=== PATIENT | female | born 1960 | race Caucasian/White ===

== ENCOUNTER → 2016-09-28 | Outpatient (CLI) | payer BC ==
[~2016-09-28] MED LIST: CETI10TA84 PO; HYDC25 PO; HYDR12.56 PO; LSN5 PO; PANT40TA PO; SYMIN160 INH
== END | disposition home or self-care (01) ==
LOC: C.PAPS 10:14
PROVIDERS: ATTEND Obstetrics & Gynecology
DX: Z01.419 Encounter for gynecological examination (general) (routine) without abnormal findings (principal)

== ENCOUNTER → 2016-10-19 | Outpatient (CLI) | payer BC ==
--- NOTE | 2016-10-19 16:37 | MAMMOGRAPHY REPORT ---
BILATERAL DIGITAL SCREENING MAMMOGRAM TOMOSYNTHESIS WITH CAD: 10/19/2016 CLINICAL HISTORY: Routine screening examination. TECHNIQUE: Breast tomosynthesis in addition to standard 2D mammography was performed. Current study was also evaluated with a Computer Aided Detection (CAD) system. COMPARISON: Comparison is made to exams dated: 10/17/2015 mammogram, 10/15/2014 mammogram, and 2012 mammogram - [facility]. BREAST COMPOSITION: There are scattered areas of fibroglandular density in both breasts. FINDINGS: There are diffuse bilateral breast microcalcifications and dermal calcifications. No susp icious mass, architectural distortion or cluster of new, suspicious microcalcifications is seen. IMPRESSION: ACR BI-RADS CATEGORY 1: NEGATIVE There is no mammographic evidence of malignancy. A 1 year screening mammogram is recommended. The p atient will receive written notification of the results. Approximately 10% of breast cancers are not detected with mammography. A negative mammographic repor t should not delay biopsy if a clinically suggestive mass is present. Christine Chapa M.D. ay/:10/19/2016 16:07:35 Disability Insurance Claim Examiner: Cassandra CLINE)(Collette), [facility] letter sent: Normal 1/2 BI-RADS Code: ACR BI-RADS Category 1: Negative
== END | disposition home or self-care (01) ==
LOC: C.MAMM 15:25
PROVIDERS: ATTEND Family Medicine
DX: Z12.31 Encounter for screening mammogram for malignant neoplasm of breast (principal)

== ENCOUNTER 2017-04-06 15:40 | Emergency (ER) | payer BC ==
[~2017-04-06] VITALS: Ht 157.5 cm; Wt 95.3 kg
[~2017-04-06 15:40] MED LIST changes: -HYDR12.56 PO; -LSN5 PO
[2017-04-06 15:44] VITALS: TEMP 36.6; Ht 157.5 cm; Wt 95.3 kg
[2017-04-06] MEDS ORDERED: SODIUM CHLORIDE 0.9% 1000ML 1,000 ML IV STA (16:33)
[2017-04-06 16:50] LABS: BASO % 0.3 %; BASO ABS # 0.04 K/uL (0-0.2); COMPLETE YES; EOS % 2.3 %; HEMATOCRIT 42.2 % (37-47); IG% 0.7 %; LYMPH % 21.7 %; LYMPH ABS # 2.59 K/uL (1.2-3.4); MEAN CELL VOLUME 86.3 fL (80-100); MEAN CORPUSCULAR HEMOGLOBIN 28.6 pg (25-34); MEAN CORPUSCULAR HGB CONC 33.2 g/dl (32-36); MONO % 7.4 %; NEUT % 67.6 %; PLATELET COUNT 315 K/uL (130-400); RED BLOOD COUNT 4.89 M/uL (4.2-5.4); WHITE BLOOD COUNT 11.94 K/uL (4.8-10.8)
--- NOTE | 2017-04-06 16:50 | EMERGENCY ROOM VISIT NOTE ---
History First contact with patient: 15:49 Chief Complaint: RIB PAIN Stated Complaint: PAIN UNDER RIB CAGE History of Present Illness The patient is a 57 year old female who presents to the Emergency Room with complaints of left-sided upper abdominal pain 5 days. The patient reports history of similar pain, which she describes as "attacks", related to her IBS D. The patient states they often occur after eating, however they have been more frequent today, despite drinking only clear liquids. The patient states she has a prescription for Bentyl, which she takes for abdominal cramping, but she states this has not been helping at this time. The patient states the pain begins in the epigastric area and wraps around the left side of her abdomen towards her back. The patient states she does have a history of pancreatitis, and states the pain she is experiencing now feels similar to that. The patient states over the past 5 days, her discomfort has been getting worse, and is taking her breath away due to the sharp pains she is experiencing. He, the patient states she has had 3 liquid bowel movements. The patient did take ibuprofen last week for a toothache, and is suspicious that this could be irritating her stomach. She did discontinue this medication 1 day prior to the pain beginning. She states the pain as coming in waves. He also describes bloating. The patient denies recent illness. The patient does have history of cholecystectomy. She does report nausea and chills. The patient denies constipation, vomiting, fever, bodyaches, chest pain, dyspnea, headache, dizziness, lightheadedness. The patient denies history of heart disease, however does have a history of hypertension. The patient does report family history of heart disease in both sides, however is on certain of ages of onset for her parents, as they when she was very young. Review of Systems A complete 10 point review of systems was reviewed with the patient with pertinent positives and negatives as per history of present illness. All else were negative. Past Medical/Surgical History Medical Problems: (1) Asthma (2) Cervical stenosis (3) Hypertension Surgical Problems: (1) H/O: hysterectomy (2) Hx of cholecystectomy Family History Cancer Diabetes mellitus Gallbladder disease Heart disease Hypertension Lung disease Social History Smoking Status: Never Smoker Alcohol Use: none Drug Use: none Housing Status: lives with family Occupation Status: employed Current/Historical Medications Scheduled Budesonide/Formoterol Fumarate (Symbicort 160/4.5 Inhaler ), 2 PUFFS INH BID Cetirizine (Zyrtec), 10 MG PO DAILY Hydrochlorothiazide (Hctz), 1 TAB PO DAILY Lisinopril (Lisinopril), 1 TAB PO DAILY Physical Exam Vital Signs Date Time Temp Pulse Resp B/P (MAP) Pulse Ox O2 Delivery O2 Flow Rate FiO2 04/06/17 19:50 61 18 119/85 98 04/06/17 18:29 62 18 122/52 98 Room Air 04/06/17 17:01 58 04/06/17 15:44 36.6 67 15 133/88 95 Room Air Physical Exam VITALS: Vitals are noted on the nurse's note and reviewed by myself. Vital signs stable. GENERAL: 57-year-old female, in no acute distress, nondiaphoretic, well- developed well-nourished. SKIN: The skin was without rashes, erythema, edema, or bruising. There is no tenting of the skin. Capillary reflex less than 2 seconds. HEAD: Normocephalic atraumatic. EARS: External auditory canals clear, tympanic membranes pearly roche without erythema or effusion bilaterally. EYES: Pupils equal round and reactive to light and accommodation. Conjunctivae without injection, sclerae without icterus. Extraocular movements intact. NOSE: Patent, turbinates without inflammation or discharge. No sinus tenderness. MOUTH: Mucous membranes moist. Tonsils are not enlarged. Pharynx without erythema or exudate. Uvula midline. Airway patent. Tongue does not deviate. NECK: Supple without nuchal rigidity. No lymphadenopathy. No thyromegaly. Cervical spine is nontender. No JVD. HEART: Regular rate and rhythm without murmurs gallops or rubs. LUNGS: Clear to auscultation bilaterally without wheezes, rales or rhonchi. No dullness to percussion. No retractions or accessory muscle use. ABDOMEN: Positive bowel sounds x 4. Normal tympanic percussion. Tenderness noted in left upper quadrant, left lower quadrant, right lower quadrant. Soft, without masses or organomegaly. Rod sign negative. No guarding or rebound tenderness. MUSCULOSKELETAL: No muscle atrophy, erythema, or edema noted. Full range of motion without joint tenderness in all extremities. No tenderness to palpation. Normal gait. Strength 5/5 throughout. NEURO: Patient was alert and oriented to person place and time. Normal sensation to light and sharp touch. Deep tendon reflexes 2+ throughout. No focal neurological deficits. Medical Decision & Procedures ER Provider Diagnostic Interpretation: CXR: FINDINGS: The bones soft tissues and hemidiaphragms are normal. The cardiomediastinal silhouette is normal. The lungs are clear. The pulmonary vasculature is normal. IMPRESSION: Negative chest. CT Abdomen with IV and PO Contrast: FINDINGS: Hepatomegaly with findings of fatty infiltration. Pancreas spleen and kidneys are unremarkable. Wall thickening of several loops of small bowel in the left upper quadrant region. This suggestive of an inflammatory bowel process such as Crohn's. Remainder the small bowel is considered unremarkable. Terminal elements appears to be unremarkable. Visualized components of the appendix are within normal limits. Mild fibroid-type uterus is noted. Several small ovarian follicular cysts are present. There are scattered colonic diverticuli with no evidence for diverticulitis. IMPRESSION: 1. Wall thickening of several loops of small bowel left upper quadrant suggesting inflammatory bowel process and/or Crohn's. 2. No evidence for abscess collection or obstructive change. 3. Scattered colonic diverticuli with no evidence of diverticulitis. 4. Moderate hepatomegaly with fatty infiltration unchanged from the prior study. EKG: EKG shows NSR with normal intervals, normal QRS complexes, no ST elevation or depression, and no arrhythmias. LABS: CBC with slightly elevated white blood cell count with left shift. Otherwise, without abnormality including anemia or thrombocytopenia. AST/ALT, Alk Phos, CRP slightly elevated. Cardiac labs negative. U/A with trace leuk esterase. I do feel that these findings could be related to patient's symptoms and recommended she follow-up closely with building services engineer. She could be getting a slight viral gastroenteritis infection on top of her IBS-D. Laboratory Results 04/06/17 16:20 Red Blood Count 4.89, Mean Corpuscular Volume 86.3, Mean Corpuscular Hemoglobin 28.6, Mean Corpuscular Hemoglobin Concent 33.2, Mean Platelet Volume 9.0, Neutrophils (%) (Auto) 67.6, Lymphocytes (%) (Auto) 21.7, Monocytes (%) (Auto) 7.4, Eosinophils (%) (Auto) 2.3, Basophils (%) (Auto) 0.3, Neutrophils # (Auto) 8.08, Lymphocytes # (Auto) 2.59, Monocytes # (Auto) 0.88, Eosinophils # (Auto) 0.27, Basophils # (Auto) 0.04 04/06/17 16:20 Test 04/06/17 16:06 04/06/17 16:20 04/06/17 16:33 Creatine Kinase MB Ratio (0-3.0) White Blood Count 11.94 K/uL (4.8-10.8) Red Blood Count 4.89 M/uL (4.2-5.4) Hemoglobin 14.0 g/dL (12.0-16.0) Hematocrit 42.2 % (37-47) Mean Corpuscular Volume 86.3 fL (80-100) Mean Corpuscular Hemoglobin 28.6 pg (25-34) Mean Corpuscular Hemoglobin Concent 33.2 g/dl (32-36) Platelet Count 315 K/uL (130-400) Mean Platelet Volume 9.0 fL (7.4-10.4) Neutrophils (%) (Auto) 67.6 % Lymphocytes (%) (Auto) 21.7 % Monocytes (%) (Auto) 7.4 % Eosinophils (%) (Auto) 2.3 % Basophils (%) (Auto) 0.3 % Neutrophils # (Auto) 8.08 K/uL (1.4-6.5) Lymphocytes # (Auto) 2.59 K/uL (1.2-3.4) Monocytes # (Auto) 0.88 K/uL (0.11-0.59) Eosinophils # (Auto) 0.27 K/uL (0-0.5) Basophils # (Auto) 0.04 K/uL (0-0.2) RDW Standard Deviation 40.9 fL (36.4-46.3) RDW Coefficient of Variation 12.9 % (11.5-14.5) Immature Granulocyte % (Auto) 0.7 % Immature Granulocyte # (Auto) 0.08 K/uL (0.00-0.02) D-Dimer 450 ug/L FEU (0-500) Anion Gap 6.0 mmol/L (3-11) Est Creatinine Clear Calc Drug Dose 82.4 ml/min Estimated GFR () 92.0 Estimated GFR (Non- 79.4 BUN/Creatinine Ratio 13.1 (10-20) Calcium Level 9.6 mg/dl (8.5-10.1) Total Bilirubin 0.7 mg/dl (0.2-1) Aspartate Amino Transf (AST/SGOT) 53 U/L (15-37) Alanine Aminotransferase (ALT/SGPT) 79 U/L (12-78) Alkaline Phosphatase 142 U/L (45-117) Lactate Dehydrogenase 191 U/L (84-246) Creatine Kinase MB 3.2 ng/ml (0.5-3.6) Troponin I < 0.015 ng/ml (0-0.045) C-Reactive Protein 1.10 mg/dl (0-0.29) Total Protein 7.8 gm/dl (6.4-8.2) Albumin 4.0 gm/dl (3.4-5.0) Globulin 3.8 gm/dl (2.5-4.0) Albumin/Globulin Ratio 1.1 (0.9-2) Amylase Level 31 U/L (25-115) Lipase 136 U/L (73-393) Urine Color YELLOW Urine Appearance CLEAR (CLEAR) Urine pH 7.5 (4.5-7.5) Urine Specific [place] 1.013 (1.000-1.030) Urine Protein NEG (NEG) Urine Glucose (UA) NEG (NEG) Urine Ketones NEG (NEG) Urine Occult Blood NEG (NEG) Urine Nitrite NEG (NEG) Urine Bilirubin NEG (NEG) Urine Urobilinogen NEG (NEG) Urine Leukocyte Esterase TRACE (NEG) Urine WBC (Auto) 0 /hpf (0-5) Urine RBC (Auto) 0-4 /hpf (0-4) Urine Hyaline Casts (Auto) 0 /lpf (0-5) Urine Epithelial Cells (Auto) 0-5 /lpf (0-5) Urine Bacteria (Auto) NEG (NEG) Medications Administered Medications (Trade) Dose Ordered Sig/Marnie Route Start Time Stop Time Status Last Admin Dose Admin Sodium Chloride 1,000 ml @ 999 mls/hr Q1H1M STAT IV 04/06/17 16:33 04/06/17 17:33 DC 04/06/17 16:37 999 MLS/HR ED Course The patient was seen and evaluated as above. Labs, EKG, chest x-ray, CT abdomen and pelvis with IV and oral contrast were ordered. The patient was given a bolus of NSS 1 L. I did reevaluate the patient and she notes mild improvement of her symptoms. The patient does decline pain medication at this time. I discussed the case Dr. Wlaker. He does not feel that the patient warrants further evaluation at this time, but did recommend close follow-up with patient' s PCP and building services engineer. I discussed all findings with the patient. Encouraged her to follow up tomorrow with her building services engineer if possible. I reviewed discharge instructions with the patient. She was discharged home in good condition. Medical Decision Throughout the course of the patient's care, I did consider the following etiologies: Acute pancreatitis, Acute gastroenteritis, Acute colitis, Crohn's disease, IBS-D, diverticulitis, Acute coronary syndrome, hepatitis, pulmonary embolism, pneumonia, nephrolithiasis, pyelonephritis, malignancy, and others. I feel that this is an acute exacerbation of the patient's chronic IBS-D, based on negative work-up performed in the ED. The patient was encouraged to follow- up with her PCP and building services engineer regarding worsening symptoms at this time. Medication Reconcilliation Current Medication List: was personally reviewed by me Impression Primary Impression: Abdominal pain Departure Information Dispostion Home / Self-Care Condition GOOD Referrals Faina Alvarez PA-C (PCP) Sheldon Carbajal MD Patient Instructions ED Abdominal Pain Unkn Cause, My [facility] Additional Instructions You were seen in the emergency department for your abdominal pain. Laboratory results of imaging studies have ruled out any emergent causes for abdominal pain which would warrant admission or surgery. You may take Bentyl as it is prescribed to you by your building services engineer. Please follow-up with your building services engineer for worsening symptoms and further evaluation. Avoid NSAIDs such as ibuprofen, naproxen, Advil, Aleve, and Motrin as much as possible, as I suspect this may have caused a worsening flare-up of your symptoms. Please stick with a clear liquid or diet which is easy to digest for the next 24 -48 hours. Drink plenty of water and stay well hydrated. As with any trip to the Emergency Department, you should follow-up with your Primary Care Provider from today's visit. Return to the emergency department if your symptoms persist despite treatment plan outlined above or if the following symptoms occur: increased fevers, chills , worsening nausea/vomiting, blood in your stool or urine. Problem Qualifiers Primary Impression: Abdominal pain Abdominal location: left upper quadrant Qualified Codes: R10.12 - Left upper quadrant pain
[2017-04-06 16:53] LABS: URINE APPEARANCE CLEAR (CLEAR); URINE BILIRUBIN NEG (NEG); URINE COLOR YELLOW; URINE EPITHELIAL CELL AUTO 0-5 /lpf (0-5); URINE NITRITE NEG (NEG); URINE PH 7.5 (4.5-7.5); URINE SPECIFIC GRAVITY 1.013 (1.000-1.030); UROBILINOGEN NEG (NEG); ZZUR CULT IF INDIC CLEAN CATCH NO
[2017-04-06 16:55] LABS: MANUAL MICROSCOPIC REQUIRED? NO; REVIEW REQ? NO
[2017-04-06 17:09] LABS: ALT/SGPT 79 U/L (12-78); AMYLASE 31 U/L (25-115); AST/SGOT 53 U/L (15-37); BLOOD UREA NITROGEN 11 mg/dl (7-18); BUN/CREATININE RATIO 13.1 (10-20); CALCIUM 9.6 mg/dl (8.5-10.1); CARBON DIOXIDE 27 mmol/L (21-32); CHLORIDE 104 mmol/L (98-107); CREATININE 0.83 mg/dl (0.60-1.20); GLUCOSE 85 mg/dl (70-99); POTASSIUM 3.7 mmol/L (3.5-5.1); SODIUM 137 mmol/L (136-145)
[2017-04-06 17:14] LABS: ALB/GLOB RATIO 1.1 (0.9-2); ALKALINE PHOSPHATASE 142 U/L (45-117)
[2017-04-06] MEDS ORDERED: HYDR12.56 PO (17:27)
[2017-04-06] MEDS ORDERED: LSN5 PO (17:27)
--- NOTE | 2017-04-06 19:10 | DIAGNOSTIC IMAGING REPORT ---
ABD/PELVIS IV AND ORAL CONT CT DOSE: 971.02 mGy.cm HISTORY: Pain abdominal pain, diarrhea TECHNIQUE: Multiaxial CT images of the abdomen and pelvis were performed following the use of intravenous and oral contrast. COMPARISON STUDY: 11/06/2015 FINDINGS: Hepatomegaly with findings of fatty infiltration. Pancreas spleen and kidneys are unremarkable. Wall thickening of several loops of small bowel in the left upper quadrant region. This suggestive of an inflammatory bowel process such as Crohn's. Remainder the small bowel is considered unremarkable. Terminal elements appears to be unremarkable. Visualized components of the appendix are within normal limits. Mild fibroid-type uterus is noted. Several small ovarian follicular cysts are present. There are scattered colonic diverticuli with no evidence for diverticulitis. IMPRESSION: 1. Wall thickening of several loops of small bowel left upper quadrant suggesting inflammatory bowel process and/or Crohn's. 2. No evidence for abscess collection or obstructive change. 3. Scattered colonic diverticuli with no evidence of diverticulitis. 4. Moderate hepatomegaly with fatty infiltration unchanged from the prior study. The above report was generated using voice recognition software. It may contain grammatical, syntax or spelling errors. Electronically signed by: Roque Stinson M.D. 04/06/2017 7:09 PM Dictated Date/Time: 04/06/2017 7:05 PM
[2017-04-06] MEDS ORDERED: OPTIRAY 320 IV PRN (19:15)
--- NOTE | 2017-04-06 19:20 | DIAGNOSTIC IMAGING REPORT ---
CHEST 2 VIEWS ROUTINE CLINICAL HISTORY: RUQ pain, pain with breathing COMPARISON STUDY: 05/01/2014 FINDINGS: The bones soft tissues and hemidiaphragms are normal. The cardiomediastinal silhouette is normal. The lungs are clear. The pulmonary vasculature is normal. IMPRESSION: Negative chest. The above report was generated using voice recognition software. It may contain grammatical, syntax or spelling errors. Electronically signed by: Roque Stinson M.D. 04/06/2017 7:19 PM Dictated Date/Time: 04/06/2017 7:19 PM
[2017-04-06 19:50] VITALS: BP 119/85; PULSE 61; O2SAT 98
== END 2017-04-06 19:51 | disposition home or self-care (01) ==
LOC: C.EDB 15:41 → C.EDA 19:51
DX: R10.12 Left upper quadrant pain (principal); Z90.49 Acquired absence of other specified parts of digestive tract; K58.0 Irritable bowel syndrome with diarrhea; J45.909 Unspecified asthma, uncomplicated; I10 Essential (primary) hypertension; Z90.710 Acquired absence of both cervix and uterus; Z80.9 Family history of malignant neoplasm, unspecified; Z83.3 Family history of diabetes mellitus; Z82.49 Family history of ischemic heart disease and other diseases of the circulatory system; Z79.899 Other long term (current) drug therapy

== ENCOUNTER → 2017-05-26 | Outpatient (CLI) | payer BC ==
[~2017-05-26] MED LIST changes: -HYDC25 PO; +HYDR12.56 PO; +LSN5 PO; -PANT40TA PO
--- NOTE | 2017-05-26 15:58 | DIAGNOSTIC IMAGING REPORT ---
CT SCAN OF THE FACIAL BONES WITHOUT IV CONTRAST CLINICAL HISTORY: Atypical facial pain. COMPARISON STUDY: No priors. TECHNIQUE: High-resolution CT scan of the facial bones is performed. Images are reviewed in the axial, sagittal, and coronal planes. IV contrast was not administered for this examination as per the referring clinician. A dose lowering technique was utilized adhering to the principles of ALARA. CT DOSE: 514.37 mGycm FINDINGS: The skeletal structures are osteopenic. There is no evidence of facial bone fracture. The bony orbits are intact and the orbital contents are within normal limits. The zygomatic arches, nasal bones, and pterygoid plates are preserved. The maxilla and mandible are intact. There are no layering blood products within the paranasal sinuses. Trace mucosal thickening is seen in the right frontal sinus. Remaining paranasal sinuses and mastoid air cells are clear. The visualized calvarium and upper cervical spine are maintained. Partially imaged brain parenchyma is within normal limits. The salivary glands are normal as visualized. There is a large dental mansi identified involving the most posterior right mandibular molar. No periapical lucency is seen. IMPRESSION: 1. No facial bone abnormality is identified. 2. A large dental mansi is seen in the most posterior right mandibular molar. Follow-up with dentistry is recommended. Electronically signed by: Bryant Silva M.D. 05/26/2017 3:57 PM Dictated Date/Time: 05/26/2017 3:52 PM
== END | disposition home or self-care (01) ==
LOC: C.CTS 15:21
PROVIDERS: ATTEND Physician Assistant
DX: G50.1 Atypical facial pain (principal)

== ENCOUNTER → 2017-05-27 | Outpatient (CLI) | payer BC ==
[2017-05-27 12:13] LABS: BASO ABS # 0.01 K/uL (0-0.2); COMPLETE YES; HEMATOCRIT 40.8 % (37-47); IG% 1.7 %; LYMPH % 7.5 %; LYMPH ABS # 1.64 K/uL (1.2-3.4); MEAN CELL VOLUME 89.5 fL (80-100); MEAN CORPUSCULAR HEMOGLOBIN 29.2 pg (25-34); MEAN CORPUSCULAR HGB CONC 32.6 g/dl (32-36); MONO % 2.2 %; NEUT % 88.6 %; PLATELET COUNT 392 K/uL (130-400); RED BLOOD COUNT 4.56 M/uL (4.2-5.4); WHITE BLOOD COUNT 21.79 K/uL (4.8-10.8)
== END | disposition home or self-care (01) ==
LOC: C.LAB 11:09
PROVIDERS: ATTEND Physician Assistant
DX: G50.1 Atypical facial pain (principal)

== ENCOUNTER → 2017-10-21 | Outpatient (CLI) | payer OTHER ==
--- NOTE | 2017-10-24 13:48 | MAMMOGRAPHY REPORT ---
BILATERAL DIGITAL SCREENING MAMMOGRAM TOMOSYNTHESIS WITH CAD: 10/21/2017 CLINICAL HISTORY: Routine screening. Patient has no complaints. TECHNIQUE: Breast tomosynthesis in addition to standard 2D mammography was performed. Current study was also evaluated with a Computer Aided Detection (CAD) system. COMPARISON: Comparison is made to exams dated: 10/19/2016 mammogram, 10/17/2015 mammogram, 10/15/2014 m ammogram, and 07/06/2013 mammogram - [facility]. BREAST COMPOSITION: There are scattered areas of fibroglandular density in both breasts. FINDINGS: No suspicious masses, calcifications, or areas of architectural distortion are noted in ei ther breast. There has been no significant interval change compared to prior exams. Scattered bilater al benign-appearing calcifications are not significantly changed. IMPRESSION: ACR BI-RADS CATEGORY 2: BENIGN There is no mammographic evidence of malignancy. A 1 year screening mammogram is recommended. The pa tient will receive written notification of the results. Approximately 10% of breast cancers are not detected with mammography. A negative mammographic report should not delay biopsy if a clinically suggestive mass is present. Indy Carlos M.D. ah/:10/21/2017 16:19:29 Assembling Inspector: Cassandra PERAZA(Aida)(M), [facility] letter sent: Normal 1/2 BI-RADS Code: ACR BI-RADS Category 2: Benign
== END | disposition home or self-care (01) ==
LOC: C.MAMM 15:32
PROVIDERS: ATTEND Family Medicine
DX: Z12.31 Encounter for screening mammogram for malignant neoplasm of breast (principal)

== ENCOUNTER 2019-03-14 10:53 | Observation (INO) ==
--- OUTSIDE RECORDS SUMMARY | 2019-03-14 10:56 | External Medical Summary | Continuity of Care Document ---
:1960 Author Name Tawanda Weller, Provider Address Unavailable Unavailable , Care Team Providers Name Role Phone [facility], Provider Unavailable [email or web address] Unavailable Unavailable Unavailable Unavailable Unavailable Problems Hypertension (401.9) (I10) Hyperlipidemia (272.4) (E78.5) Encounter for routine pelvic examination (V72.31) (Z01.419) Abnormal uterine bleeding (AUB) (626.9) (N93.9) Menstrual changes (626.9) (N92.6) Allergies and Adverse Reactions Penicillins (Allergy) Medications Baby Aspirin CHEW Refills: 0 Neema C TABS Refills: 0 Zantac CAPS Refills: 0 Multiple Vitamin TABS Refills: 0 Vitamin C TABS Refills: 0 Symbicort AERO Refills: 0 ZyrTEC Allergy TABS Refills: 0 hydroCHLOROthiazide 12.5 MG Oral Tablet Refills: 0 Procedures History of Cholecystotomy Status: Comple codi History of Appendectomy Status: Complete d History of Tonsillectomy Status: Complet ed History of Tubal Ligation Status: Comple codi History of Section Status: Comp leted History of Exploratory Laparotomy Status : Completed Immunizations Immunizations not documented Social History - Smoking Status Never smoker Plan of Treatment Planned Observations Planned Goals not documented Results No Known Results Results not documented
[2019-03-14] MEDS ORDERED: MoRPHine SULFATE 10 MG/ML CARP/VIAL IV STA (11:42)
[2019-03-14] MEDS ORDERED: SODIUM CHLORIDE 0.9% 1000ML 1,000 ML IV ONE (11:42)
[2019-03-14] MEDS ORDERED: ONDANSETRON INJ 2 MG/ML 2 ML VIAL IV STA ×2 (11:42→16:11)
--- NOTE | 2019-03-14 11:51 | Emergency Department Note ---
History of Present Illness General Chief Complaint: Abdominal Pain Stated Complaint: VERY BAD BELLY PAIN Source: patient Mode of arrival: ambulatory Limitations: no limitations History of Present Illness Provider Complaint: abdominal pain Onset (ago): 6 hour(s) Pain Consistency: constant Location: diffuse Radiation: other (left shoulder) Migration to: no migration Severity: severe Maximum Pain Intensity: 10 Current Pain Intensity: 10 Quality: + cramping Relieved By: + nothing Exacerbated By: + nothing Context: no foreign travel, no possible food poisoning, no sick contacts, no recent antibiotic use, no recent surgery/procedure, no recent injury and no history of similar episodes Associated Symptoms: + nausea; no vomiting, no diarrhea, no fever, no chills, no constipation, no dysuria, no hematochezia, no melena, no hematuria, no anorexia, no headache, no neck pain, no back pain, no chest pain, no weakness, no breathing difficulty and no numbness Treatments prior to arrival: tylenol This 59-year-old female patient presents emergency department today, ambulatory, accompanied by female. Patient is complaining of severe generalized abdominal pain which she describes as cramping. She states it may be worse in the upper abdomen, but is over the incision site in her lower abdomen as well. She has a history of diverticulitis, and states this pain is worse than she has ever experienced with that. The patient states the pain began at approximate 530 this morning while on her way to work. The pain does radiate into her left shoulder. She took a dose of Bentyl which did not help and was sent home from work at 815. She states she took some Tylenol at 9:00, which did not relieve her pain. There is no aggravating or alleviating factors. She did not eat breakfast this morning, but drinks some tea. Last night for dinner she had a salad and some fish which she prepared. She reports associated nausea, but no vomiting. She denies any associated symptoms including fever, diarrhea, chills, constipation, vomiting, urinary symptoms, hematochezia, cough, chest pain, difficulty breathing, or other associated symptoms. Last bowel movement was this morning and was normal. Home Medications Home Medications Medication Instructions Recorded Confirmed Type budesonide-formoterol [Symbicort] 2 puff INHALATION BID 03/14/19 03/14/19 History cetirizine [Zyrtec] 10 mg PO QAM 03/14/19 03/14/19 History lisinopril 5 mg PO QAM 03/14/19 03/14/19 History ranitidine HCl 300 mg PO HS 03/14/19 03/14/19 History Allergies Allergy/AdvReac Type Severity Reaction Status Date / Time pantoprazole Allergy Severe RASH ON ARM Unverified 03/14/19 13:04 Penicillins Allergy Unknown throat Verified 03/14/19 13:04 swelling Past Med/Surg History Medical History Allergic rhinitis Asthma Hypertension Social History Preferred Language: Yi Feels Safe at Home: Yes Smoking Status: Never smoker Review of Systems A total of 10 systems reviewed and were otherwise negative Physical Exam Vital Signs: Vital Signs - 24 hr 03/14/19 11:12 03/14/19 12:00 03/14/19 12:03 Temperature 37.0 C Temperature Source Oral Sepsis Recent Feve r Within 48 Hours No Sepsis New/Unexpla ined Change in Men neaem Status No Sepsis Action Take n by Nursing No Action Required Pulse Rate 73 74 67 Pulse Rate [Right Finger] Pulse Rate from Sp O2 Sensor 75 Pulse Rhythm Regular Pulse Strength Normal Respiratory Rate 20 17 18 Respiratory Effort / Characteristics Non-Labored Sponta neous Respiratory Depth Normal Respiratory Patter n Regular Blood Pressure 171/91 H 145/88 H Blood Pressure [Ri ght Arm] Blood Pressure Maureen n 117 107 Blood Pressure Maureen n [Right Arm] Blood Pressure Pos ition Sitting Pulse Oximetry 97 93 98 Oxygen Delivery Me thod Room Air Room Air 03/14/19 12:28 03/14/19 12:30 03/14/19 13:00 Temperature Temperature Source Sepsis Recent Feve r Within 48 Hours Sepsis New/Unexpla ined Change in Men naeem Status Sepsis Action Take n by Nursing Pulse Rate 89 84 81 Pulse Rate [Right Finger] Pulse Rate from Sp O2 Sensor Pulse Rhythm Pulse Strength Respiratory Rate 19 18 20 Respiratory Effort / Characteristics Respiratory Depth Respiratory Patter n Blood Pressure Blood Pressure [Ri ght Arm] Blood Pressure Maureen n Blood Pressure Maureen n [Right Arm] Blood Pressure Pos ition Pulse Oximetry Oxygen Delivery Me thod 03/14/19 13:30 03/14/19 14:00 03/14/19 14:02 Temperature Temperature Source Sepsis Recent Feve r Within 48 Hours Sepsis New/Unexpla ined Change in Men naeem Status Sepsis Action Take n by Nursing Pulse Rate 74 64 Pulse Rate [Right Finger] Pulse Rate from Sp O2 Sensor 68 65 Pulse Rhythm Pulse Strength Respiratory Rate 21 18 Respiratory Effort / Characteristics Respiratory Depth Respiratory Patter n Blood Pressure 129/90 Blood Pressure [Ri ght Arm] Blood Pressure Maureen n 103 Blood Pressure Maureen n [Right Arm] Blood Pressure Pos ition Pulse Oximetry 93 96 Oxygen Delivery Me thod 03/14/19 14:30 03/14/19 15:37 03/14/19 15:38 Temperature Temperature Source Sepsis Recent Feve r Within 48 Hours Sepsis New/Unexpla ined Change in Men naeem Status Sepsis Action Take n by Nursing Pulse Rate 70 62 Pulse Rate [Right Finger] 68 Pulse Rate from Sp O2 Sensor 70 63 Pulse Rhythm Pulse Strength Respiratory Rate 17 21 18 Respiratory Effort / Characteristics Respiratory Depth Respiratory Patter n Blood Pressure 133/90 129/91 Blood Pressure [Ri ght Arm] 129/91 Blood Pressure Maureen n 104 103 Blood Pressure Maureen n [Right Arm] 103 Blood Pressure Pos ition Pulse Oximetry 97 93 95 Oxygen Delivery Me thod 03/14/19 16:00 Temperature Temperature Source Sepsis Recent Feve r Within 48 Hours Sepsis New/Unexpla ined Change in Men naeem Status Sepsis Action Take n by Nursing Pulse Rate 63 Pulse Rate [Right Finger] Pulse Rate from Sp O2 Sensor 64 Pulse Rhythm Pulse Strength Respiratory Rate 15 Respiratory Effort / Characteristics Respiratory Depth Respiratory Patter n Blood Pressure 135/88 Blood Pressure [Ri ght Arm] Blood Pressure Maureen n 103 Blood Pressure Maureen n [Right Arm] Blood Pressure Pos ition Pulse Oximetry 94 Oxygen Delivery Me thod Physical Exam: VITALS: Vitals are noted on the nurse's note and reviewed by myself. Vital signs stable. GENERAL: This is a 59-year-old obese white female, in no acute distress, nondiaphoretic, well-developed well-nourished. SKIN: The skin was without rashes, erythema, edema, or bruising. There is no tenting of the skin. Capillary reflex less than 2 seconds. HEAD: Normocephalic atraumatic. EARS: External auditory canals clear, tympanic membranes pearly roche without erythema or effusion bilaterally. EYES: Pupils equal round and reactive to light and accommodation. Conjunctivae without injection, sclerae without icterus. Extraocular movements intact. NOSE: Patent, turbinates without inflammation or discharge. No sinus t enderness. MOUTH: Mucous membranes moist. Tonsils are not enlarged. Pharynx without erythema or exudate. Uvula midline. Airway patent. Tongue does not deviate. NECK: Supple without nuchal rigidity. No lymphadenopathy. No thyromegaly. Cervical spine is nontender. No JVD. HEART: Regular rate and rhythm without murmurs gallops or rubs. LUNGS: Clear to auscultation bilaterally without wheezes, rales or rhonchi. No dullness to percussion. No retractions or accessory muscle use. ABDOMEN: Positive bowel sounds x 4. Normal tympanic percussion. Generalized diffuse tenderness with mild distention. Otherwise, no obvious masses or organomegaly. Rod sign negative. No guarding or rebound tenderness. MUSCULOSKELETAL: No muscle atrophy, erythema, or edema noted. Full range of motion without joint tenderness in all extremities. No tenderness to palpation. Normal gait. Strength 5/5 throughout. NEURO: Patient was alert and oriented to person place and time. Normal sensation to light and sharp touch. No focal neurological deficits. Course The patient was seen and evaluated as above. IV access obtained, labs drawn. She was medicated with IV fluids and Zofran peer Labs reviewed by myself. I reassessed the patient and discussed the findings of lab results with her at bedside. She was feeling much better and had declined the morphine. Unfortunately, we are having an issue with radiology, so I discussed with the patient that her imaging is delayed at this point because of inability to view images. We will continue to monitor and inform patient as soon as we receive results. Imaging performed and reviewed by myself and radiologist as above. I discussed the findings with the patient at bedside. The patient did request nonnarcotic pain medicine and a repeat dose of Zofran. She was given IV Zofran and Tylenol. I did consult with the general surgeon, Dr. Berrios. He did agree to see and evaluate the patient. Patient was seen by general surgery team. It was decided to admit the patient. Please see their dictation regarding ongoing management care of this patient. Administered Medications Ioversol (Optiray 320 100ml) 94 ml IV ONCE PRN PRN Reason: Interaction Checking Stop: 03/18/19 14:39 Last Admin: 03/14/19 14:41 Dose: 94 ml Documented by: [id number] Discontinued Medications Sodium Chloride (Nss 1000ml) 1,000 mls @ 999 mls/hr IV .Q1H1M ONE Stop: 03/14/19 12:42 Last Infusion: 03/14/19 13:48 Dose: 0 mls/hr Documented by: [id number] Admin: 03/14/19 12:15 Dose: 999 mls/hr Documented by: [id number] Acetaminophen (Ofirmev) 1,000 mg in 100 mls @ 400 mls/hr IV NOW STA Stop: 03/14/19 16:25 Last Infusion: 03/14/19 16:52 Dose: 0 mls/hr Documented by: [id number] Admin: 03/14/19 16:19 Dose: 400 mls/hr Documented by: [id number] Morphine Sulfate (Morphine Sulfate) 8 mg IV NOW STA Stop: 03/14/19 11:43 Last Admin: 03/14/19 13:01 Dose: Not Given Documented by: [id number] Ondansetron HCl (Zofran) 4 mg IV NOW STA Stop: 03/14/19 11:43 Last Admin: 03/14/19 12:22 Dose: 4 mg Documented by: [id number] Ondansetron HCl (Zofran) 4 mg IV NOW STA Stop: 03/14/19 16:12 Last Admin: 03/14/19 16:19 Dose: 4 mg Documented by: [id number] Medical Decision Making Differential Diagnosis + peptic ulcer disease, + biliary pathology, + UTI, + obstruction, + mesenteric ischemia, + aortic pathology, + infections, + inflammatory bowel disease, + renal colic, + ectopic (female), + ovarian torsion (female), + tubo- ovarian abscesses (female), + pelvic inflammatory disease (female), + abdominal pain, + appendicitis, + calculus of kidney, + constipation, + diverticulitis, + endometriosis, + gastroenteritis, + pancreatitis and + small bowel obstruction hernia, adhesions, among others Home Medications Current Medication List: was personally reviewed by me Laboratory Data Attestation: I reviewed the patient's lab results. Leukocytosis of 19,000. Otherwise no anemia or thrombocytopenia. Renal, hepatic function elect lites without significant abnormality. Troponin negative. Lipase negative. Urinalysis without evidence of infection or blood. Result diagrams: 03/14/19 11:50 03/14/19 11:50 Lab Results 03/14/19 03/14/19 03/14/19 Range/Units 11:50 11:50 13:50 WBC 19.41 H (4.8-10.8) K/uL RBC 5.06 (4.2-5.4) M/uL Hgb 14.9 (12.0-16.0) g/dL Hct 42.9 (37-47) % MCV 84.8 (80-100) fL MCH 29.4 (25-34) pg MCHC 34.7 (32-36) g/dL RDW Std Deviation 40.1 (36.4-46.3) fL RDW Coeff of Michael 13.1 (11.5-14.5) % Plt Count 315 (130-400) K/uL MPV 8.9 (7.4-10.4) fL Immature Gran % (Auto) 0.9 % Neut % (Auto) 82.5 % Lymph % (Auto) 9.7 % [place] % (Auto) 5.8 % Eos % (Auto) 0.8 % Baso % (Auto) 0.3 % Immature Gran # (Auto) 0.18 H (0.00-0.02) K/uL Neut # (Auto) 16.00 H (1.4-6.5) K/uL Lymph # (Auto) 1.88 (1.2-3.4) K/uL [place] # (Auto) 1.13 H (0.11-0.59) K/uL Eos # (Auto) 0.16 (0-0.5) K/uL Baso # (Auto) 0.06 (0-0.2) K/uL Sodium 138 (136-145) mmol/L Potassium 4.2 (3.5-5.1) mmol/L Chloride 104 (98-107) mmol/L Carbon Dioxide 27 (21-32) mmol/L Anion Gap 7.0 (3-11) BUN 14 (7-18) mg/dl Creatinine 0.78 (0.6-1.2) mg/dl Est Cr Clr Drug Dosing 84.6 ml/min Est GFR ( Amer) 97.8 Est GFR (Non-Af Amer) 84.4 BUN/Creatinine Ratio 17.4 (10-20) Glucose 98 (70-99) mg/dl Calcium 9.6 (8.5-10.1) mg/dl Total Bilirubin 0.6 (0.2-1) mg/dl AST 42 H (15-37) U/L ALT 63 (12-78) U/L Alkaline Phosphatase 175 H (45-117) U/L Troponin I < 0.015 (0-0.045) ng/ml Total Protein 8.2 (6.4-8.2) gm/dl Albumin 4.1 (3.4-5.0) gm/dl Globulin 4.1 H (2.5-4.0) gm/dl Albumin/Globulin Ratio 1.0 (0.9-2) Lipase 158 (73-393) U/L Urine Color Dark Yellow Urine Appearance Clear (Clear) Urine pH 7.0 (4.5-7.5) Ur Specific [place] 1.023 (1.000-1.030) Urine Protein Negative (Negative) Urine Glucose (UA) Negative (Negative) Urine Ketones Negative (Negative) Urine Blood Negative (Negative) Urine Nitrite Negative (Negative) Urine Bilirubin Negative (Negative) Urine Urobilinogen Negative (Negative) Ur Leukocyte Esterase Negative (Negative) Imaging Data Radiologist's Impression: XR chest 1V portable CLINICAL HISTORY: Pain, radiating to the abdomen. COMPARISON STUDY: No previous studies for comparison. FINDINGS: The cardiac and mediastinal contours are normal. There is no evidence of focal pulmonary consolidation. There is no evidence of failure. No pleural effusions are visualized.[No free intraperitoneal air is visualized. IMPRESSION: No active disease in the chest. Electronically signed by: Donell Simmons M.D. 03/14/2019 12:[address] SCAN OF THE ABDOMEN AND PELVIS WITH IV CONTRAST CLINICAL HISTORY: Generalized abdominal pain. COMPARISON STUDY: Abdominal CT dated 04/06/2017. TECHNIQUE: Following the IV administration of 94 cc of Optiray 320, CT scan of the abdomen and pelvis is performed from the lung bases to the proximal femora. Images are reviewed in the axial, sagittal, and coronal planes. IV contrast was administered without complication. Oral contrast was utilized. A dose lowering technique was utilized adhering to the principles of ALARA. CT DOSE: 890.38 mGy.cm FINDINGS: Lung bases: The heart is normal in size and without pericardial effusion. The lung bases are clear noting bibasilar atelectasis. There is a tiny hiatal hernia. Liver: The contrast-enhanced liver is enlarged and demonstrates diffusely diminished attenuation consistent with severe hepatic steatosis. There is no intrahepatic biliary ductal dilatation. The hepatic veins and portal veins are patent. Gallbladder: Surgically absent. Spleen: Normal in size and attenuation. Pancreas: Unremarkable. Adrenal glands: Unremarkable. Kidneys: The contrast enhanced kidneys are normal in size and without hydronephrosis. The kidneys enhance symmetrically. Abdominal vasculature: The abdominal aorta is normal in course and caliber noting moderate atherosclerotic calcification. Bowel: There are thick-walled loops of mildly dilated small bowel in the anterior mid abdomen matted against the ventral abdominal wall, one of which is partially contained within a fat-containing ventral hernia located below the umbilicus. There is significant surrounding inflammatory change as well as mild venous engorgement. There is trace interloop fluid. There is no pneumatosis intestinalis or portal venous gas. No high-grade bowel obstruction is seen. Enteric contrast reaches the colon. There is a small duodenal diverticulum. There is moderate colonic diverticulosis without CT evidence of acute diver ticulitis. The appendix is not identified and reported surgically absent. Peritoneum: There is no intraperitoneal free air or abdominal ascites. Lymphadenopathy: None. Pelvic viscera: The bladder is normal as visualized. There are calcified uterine fibroids. No adnexal lesion is seen. There are small ovarian follicles. Skeletal structures: No lytic or blastic lesions are seen. Arthritic change is noted in the right hip with large cystic foci identified in the femoral head. IMPRESSION: 1. There are thick-walled and inflamed loops of small bowel matted along the ventral abdominal wall, one of which is at least partially contained within an infraumbilical hernia. There is associated interloop fluid and mesenteric venous and concordant. No intraperitoneal free air is seen. 2. The appearance is consistent with a nonspecific enteritis involving these bowel loops. The remaining small bowel loops are normal in appearance, and given the localized findings the potential for a partially/intermittently incarcerated internal hernia is not excluded. There may also be a partially/intermittently incarcerated loop within the infraumbilical hernia. Surgical consultation is advised. 3. There is no high-grade bowel obstruction, as enteric contrast reaches the colon. 4. Moderate colonic diverticulosis without CT evidence of acute diverticulitis. 5. Hepatomegaly and severe hepatic steatosis. 6. Fibroid uterus. 7. Additional findings as above. Electronically signed by: Braynt Silva M.D. 03/14/2019 4:03 PM ECG Data Attestation: I personally reviewed and interpreted this ECG as follows: Indication: abdominal pain Rate (beats per minute): 78 Rhythm: normal sinus Findings: no acute ischemic change and no ectopy Comparison ECG Date: from (04/06/17) Change: no significant change Blood Pressure Blood Pressure Findings: Normal blood pressure MDM Narrative This 59-year-old female patient presented to the emergency department today complaining of generalized, diffuse abdominal pain. Symptoms were concerning for possible bowel etiology including hernia or obstruction, as the patient has history of multiple abdominal surgeries and diverticulitis. The pain did not localize to any one area. Work-up was performed including labs and imaging. The patient does have a moderate leukocytosis of 19,000, but no significant electrolyte, renal, or hepatic abnormalities. CT scan showed inflamed loops of small bowel matted along the ventral abdominal wall with an infraumbilical hernia. There is associated interloop fluid and mesenteric venous and concordant. There was concern for partially/intermittently incarcerated internal hernia as well as partially/intermittently incarcerated loop within the infra umbilical hernia. Radiologist did recommend surgical consult. I discussed findings with the patient at bedside and consulted Dr. Berrios. He did see and evaluate the patient. While here in the ED, the patient's pain was well controlled without any medications. She did ultimately request nonnarcotic pain medicine, but did require 2 doses of IV Zofran. She was given IV fluids. Please see surgery dictation regarding ongoing management care of this patient. The chart was completed utilizing [employer] Speech voice recognition software. Grammatical errors, random word insertions, pronoun errors, and incomplete sentences are an occasional consequence of this system due to software limitations, ambient noise, and hardware issues. Any formal questions or concerns about the content, text, or information contained within the body of this dictation should be directly addressed to the provider for clarification. Impression & Plan Ventral hernia Discharge Plan Visit Data Chief Complaint: Abdominal Pain Stated Complaint: VERY BAD BELLY PAIN ED Provider: Kyrie Fine ED Midlevel Provider: Norma Ibanez Discharge Problem: Ventral hernia Patient Disposition: Admitted As Inpatient Forms Stand Alone [facility]: [facility] Authorization Prescriptions Prescriptions: No Action cetirizine [Zyrtec] 10 mg Tablet 10 mg PO QAM RF: 0 ranitidine HCl 300 mg tablet 300 mg PO HS RF: 0 lisinopril 5 mg tablet 5 mg PO QAM RF: 0 Symbicort 160-4.5 mcg/actuation HFA aerosol inhaler 2 puff inhalation BID RF: 0 Referrals Referrals: Faina Alvarez PA-C [Primary Care Provider] -
[2019-03-14 12:20] LABS: Basophils # (auto) 0.06 K/uL (0-0.2); Basophils % (auto) 0.3 %; Eosinophils # (auto) 0.16 K/uL (0-0.5); Eosinophils % (auto) 0.8 %; Hematocrit (blood only) 42.9 % (37-47); Hemoglobin 14.9 g/dL (12.0-16.0); Immature Granulocytes # (auto) 0.18 K/uL (0.00-0.02); Immature Granulocytes % (auto) 0.9 %; Lymphocytes # (auto) 1.88 K/uL (1.2-3.4); Lymphocytes % (auto) 9.7 %; Mean Corpuscular Hgb Conc 34.7 g/dL (32-36); Mean Corpuscular Volume 84.8 fL (80-100); Mean Platelet Volume 8.9 fL (7.4-10.4); Monocytes # (auto) 1.13 K/uL (0.11-0.59); Monocytes % (auto) 5.8 %; Neutrophils % (auto) 82.5 %; Platelet Count 315 K/uL (130-400); RDW Coefficient of Variation 13.1 % (11.5-14.5); RDW Standard Deviation 40.1 fL (36.4-46.3); Red Blood Count 5.06 M/uL (4.2-5.4); White Blood Count 19.41 K/uL (4.8-10.8)
[2019-03-14 12:38] LABS: Alanine Aminotransferase 63 U/L (12-78); Albumin Level 4.1 gm/dl (3.4-5.0); Aspartate Aminotransferase 42 U/L (15-37); BUN Creatinine Ratio 17.4 (10-20); Blood Urea Nitrogen 14 mg/dl (7-18); Calcium 9.6 mg/dl (8.5-10.1); Carbon Dioxide 27 mmol/L (21-32); Chloride 104 mmol/L (98-107); Creatinine Clr Calc Pharmacy 84.6 ml/min; Est GFR (African American) 97.8; Est GFR (Non-African American) 84.4; Glucose 98 mg/dl (70-99); Potassium 4.2 mmol/L (3.5-5.1); Sodium 138 mmol/L (136-145)
--- NOTE | 2019-03-14 12:40 | XRay Report ---
XR chest 1V portable CLINICAL HISTORY: Pain, radiating to the abdomen. COMPARISON STUDY: No previous studies for comparison. FINDINGS: The cardiac and mediastinal contours are normal. There is no evidence of focal pulmonary co nsolidation. There is no evidence of failure. No pleural effusions are visualized.[No free intraperit nichols air is visualized. IMPRESSION: No active disease in the chest. Electronically signed by: Donell Simmons M.D. 03/14/2019 12:38 PM
[2019-03-14 12:43] LABS: Alkaline Phosphatase 175 U/L (45-117); Bilirubin,Total 0.6 mg/dl (0.2-1); Globulin 4.1 gm/dl (2.5-4.0); Total Protein 8.2 gm/dl (6.4-8.2); Troponin I < 0.015 ng/ml (0-0.045)
[2019-03-14 14:04] LABS: Appearance Urine Clear (Clear); Bilirubin Urine Negative (Negative); Blood Urine Negative (Negative); Color Urine Dark Yellow; Glucose Urine UA Negative (Negative); Ketones Urine Negative (Negative); Leukocyte Esterase Urine Negative (Negative); Nitrite Urine Negative (Negative); Protein Urine Negative (Negative); Specific Gravity Urine 1.023 (1.000-1.030); Urobilinogen Urine Negative (Negative)
[2019-03-14] MEDS ORDERED: IOVERSOL 100ml IV PRN (14:40)
--- NOTE | 2019-03-14 16:05 | CT Scan Report ---
CT SCAN OF THE ABDOMEN AND PELVIS WITH IV CONTRAST CLINICAL HISTORY: Generalized abdominal pain. COMPARISON STUDY: Abdominal CT dated 04/06/2017. TECHNIQUE: Following the IV administration of 94 cc of Optiray 320, CT scan of the abdomen and pelvi s is performed from the lung bases to the proximal femora. Images are reviewed in the axial, sagittal , and coronal planes. IV contrast was administered without complication. Oral contrast was utilized. A dose lowering technique was utilized adhering to the principles of ALARA. CT DOSE: 890.38 mGy.cm FINDINGS: Lung bases: The heart is normal in size and without pericardial effusion. The lung bases are clear no ting bibasilar atelectasis. There is a tiny hiatal hernia. Liver: The contrast-enhanced liver is enlarged and demonstrates diffusely diminished attenuation cons istent with severe hepatic steatosis. There is no intrahepatic biliary ductal dilatation. The hepatic veins and portal veins are patent. Gallbladder: Surgically absent. Spleen: Normal in size and attenuation. Pancreas: Unremarkable. Adrenal glands: Unremarkable. Kidneys: The contrast enhanced kidneys are normal in size and without hydronephrosis. The kidneys enh ance symmetrically. Abdominal vasculature: The abdominal aorta is normal in course and caliber noting moderate atheroscle rotic calcification. Bowel: There are thick-walled loops of mildly dilated small bowel in the anterior mid abdomen matted against the ventral abdominal wall, one of which is partially contained within a fat-containing ventr al hernia located below the umbilicus. There is significant surrounding inflammatory change as well a s mild venous engorgement. There is trace interloop fluid. There is no pneumatosis intestinalis or po rtal venous gas. No high-grade bowel obstruction is seen. Enteric contrast reaches the colon. There i s a small duodenal diverticulum. There is moderate colonic diverticulosis without CT evidence of acut e diverticulitis. The appendix is not identified and reported surgically absent. Peritoneum: There is no intraperitoneal free air or abdominal ascites. Lymphadenopathy: None. Pelvic viscera: The bladder is normal as visualized. There are calcified uterine fibroids. No adnexal lesion is seen. There are small ovarian follicles. Skeletal structures: No lytic or blastic lesions are seen. Arthritic change is noted in the right hip with large cystic foci identified in the femoral head. IMPRESSION: 1. There are thick-walled and inflamed loops of small bowel matted along the ventral abdominal wall, one of which is at least partially contained within an infraumbilical hernia. There is associated int erloop fluid and mesenteric venous and concordant. No intraperitoneal free air is seen. 2. The appearance is consistent with a nonspecific enteritis involving these bowel loops. The remaini ng small bowel loops are normal in appearance, and given the localized findings the potential for a p artially/intermittently incarcerated internal hernia is not excluded. There may also be a partially/i ntermittently incarcerated loop within the infraumbilical hernia. Surgical consultation is advised. 3. There is no high-grade bowel obstruction, as enteric contrast reaches the colon. 4. Moderate colonic diverticulosis without CT evidence of acute diverticulitis. 5. Hepatomegaly and severe hepatic steatosis. 6. Fibroid uterus. 7. Additional findings as above. Electronically signed by: Bryant Silva M.D. 03/14/2019 4:03 PM
[2019-03-14] MEDS ORDERED: ACETAMINOPHEN 1,000 MG/100 ML VIAL IV STA (16:11)
[2019-03-14] MEDS ORDERED: MoRPHine SULFATE 2 MG/ML CARP IV PRN (16:50)
[2019-03-14] MEDS ORDERED: PROMETHAZINE HCL 12.5 MG in SODIUM CHLORIDE 0.9% 50 ML IV PRN (16:50)
[2019-03-14] MEDS ORDERED: ONDANSETRON INJ 2 MG/ML 2 ML VIAL IV PRN (16:50)
--- NOTE | 2019-03-14 17:10 | History & Physical Report ---
Date of Service March 14, 2019 Assessment & Plan (1) Ventral hernia: White count is elevated but she does not have any acute abdominal findings and HR is normal. Pain is improved since arrival. Given her complicated surgical history, will observe closely overnight but have a low threshold for exploration if her condition changes. Will start Cipro & Flagyl. Keep NPO for tonight and ask [facility] hospitalist to follow along. She was seen along with Dr. Berrios while in the ED. Dr Berrios- I saw pt in ER- clinically she does not appear to be ill- her abd is soft with minimal tenderness. she has prior RUQ and Lower midline incisions- hernia near umb (incision)- not tender and not incarcerated. thickened loops of small bowel could be chronic. Monitor progress for now History of Present Illness Primary Care Provider: Faina Alvarez PA-C 59 y/o female with mid abdominal pain that began this morning when coming in to work. 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 She felt tired two days ago and slept a good part of the day. No others have been sick, is not aware of any foodborne illness. She has seen Dr. Carbajal in the past for IBS and reflux. Has had EGD and colonoscopy approx 5 years ago. Has complicated surgical history related to gallbladder. Had open cholecystectomy approx 25 years ago. She had two subsequent operations during that hospitalization for adhesions/exploration before having ERCP for CBD stones. Has a small bulge below her umbilicus that can be uncomfortable at times but not painful now. Allergies Allergy/AdvReac Type Severity Reaction Status Date / Time pantoprazole Allergy Severe RASH ON ARM Unverified 03/14/19 13:04 Penicillins Allergy Unknown throat Verified 03/14/19 13:04 swelling Home Medications Home Medications Medication Instructions Recorded Confirmed Type ascorbic acid (vitamin C) [Vitamin 1 g PO DAILY 03/14/19 03/14/19 History C] atorvastatin 20 mg PO DAILY 03/14/19 03/14/19 History budesonide-formoterol [Symbicort] 2 puff INHALATION BID 03/14/19 03/14/19 History cetirizine [Zyrtec] 10 mg PO QAM 03/14/19 03/14/19 History dicyclomine 10 mg PO TID PRN 03/14/19 03/14/19 History lisinopril 5 mg PO QAM 03/14/19 03/14/19 History lorazepam 0.5 mg PO TID PRN 03/14/19 03/14/19 History rljvknsx-otu-ijpw-FA-lutein 1 tab PO DAILY 03/14/19 03/14/19 History [Multivitamin Women 50 Plus] ranitidine HCl 300 mg PO HS 03/14/19 03/14/19 History vitamin E 400 unit PO DAILY 03/14/19 03/14/19 History Past Med/Surg History Medical History IBS (irritable bowel syndrome) (Chronic) GERD (gastroesophageal reflux disease) (Chronic) Diverticulosis (Chronic) Hypertension (Chronic) Allergic rhinitis (Chronic) Asthma (Chronic) Ventral hernia (Chronic) Hypertension (Chronic) Asthma (Chronic) Surgical History History of appendectomy (Chronic) History of (Chronic) History of tubal ligation (Chronic) History of exploratory laparotomy (Chronic) X2; back in 1980s required lysis of adhesions History of ERCP (Chronic) H/O: hysterectomy (Chronic) Hx of cholecystectomy (Chronic) Family History Father Lung cancer Mother Lung disease Other Asthma Diabetes Heart disease Social History Preferred Language: Macedonian Communication Ability: Effective marital status: Current Living Situation: Spouse Feels Safe at Home: Yes Smoking Status: Never smoker Hx Alcohol Use: No Hx Substance Use: No Review of Systems Constitutional: + malaise; no fever and no chills Gastrointestinal: + abdominal pain, + heartburn, + nausea, + vomiting, + constipation (at times from IBS) and + diarrhea/loose stools (today after CT) Physical Exam Constitutional: WD/WN, vitals as above Respiratory: normal respiratory effort, lungs clear to auscultation Cardiovascular: RRR, no murmur, no edema Gastrointestinal (Abdomen): Inspection/Auscultation: abdomen not distended Percussion/Palpation: + abdomen tender (mild lower abdomen) and + hernia (soft, nontender 3 cm midline incisional just below umbilicus); no guarding Skin: no rashes, warm and dry Results & Data Vital Signs (Past 12 Hours) Vital Signs Temp Pulse Pulse Resp BP BP Pulse Ox 03/14/19 16:00 63 15 135/88 94 03/14/19 15:38 68 18 129/91 95 03/14/19 15:37 62 21 129/91 93 03/14/19 14:30 70 17 133/90 97 03/14/19 14:02 64 18 129/90 96 03/14/19 14:00 93 03/14/19 13:30 74 21 03/14/19 13:00 81 20 03/14/19 12:30 84 18 03/14/19 12:28 89 19 03/14/19 12:03 67 18 98 03/14/19 12:00 74 17 145/88 H 93 03/14/19 11:12 37.0 C 73 20 171/91 H 97
--- NOTE | 2019-03-14 17:40 | Consultation ---
Date of Consultation March 14, 2019 Assessment & Plan (1) Abdominal pain: This is a 59-year-old female who has a significant past medical history of HTN, HLD, GERD, IBS, asthma, diverticulosis who presented to [facility] ED secondary to abdominal pain that started approximately 5:30 AM. In ED patient was noted to have a white count of 19.4 1K, H&H stable at 14.9 and 42.9 completely 315. She was hemodynamically stable with a blood pressure 135/88 and heart rate of 63. Her LFTs were as follows AST 41, ALT 63, alk phos 175, T bili 0.6, lipase 150. Her troponin was WNL. Urinalysis unremarkable. CT scan of abdomen pelvis revealed thick-walled and inflamed loops of small bowel matted along the ventral abdominal wall, 1 of which is at least partially contained with infraumbilical hernia. There is associated interloop fluid and mesenteric venous and concordant. Appearance found to be consistent with nonspecific enteritis. Partially/intermittently incarcerated hernia is not excluded. There is no high-grade small bowel obstruction. Moderate colonic diverticulosis. Hepatomegaly and severe hepatic steatosis. Pt admitted to med/surg under surgery service Dr. Yash Watkins and Flagyl initiated for concerns of enteritis and leukocytosis Surgery to continue to observe patient as abdomen is nonsurgical at this time N.p.o. after midnight Monitor CBC, BMP Pain control per surgery Antiemetics as needed IVF 125 cc/hr check lactic acid given concern for incarcerated bowel (2) Hypertension: Blood pressure elevated in ED likely in setting of pain Continue lisinopril (3) Asthma: No acute exacerbation Continue Symbicort and Zyrtec (4) GERD (gastroesophageal reflux disease): Continue ranitidine at bedtime (5) IBS (irritable bowel syndrome): Continue Bentyl as needed (6) DVT prophylaxis: SCDS/TEDs per surgery Disposition: Per Surgery Follow up: PCP Dr. Fitch/Faina Alvarez PA-C upon discharge Patient was seen and examined in collaboration with Dr. Mari, please see addendum Starting 03/15/19 patient will remain under the care of Dr. Mari Thank you for this consultation. We will follow the patient with you during their hospital stay. You can reach a member of the [facility] Hospitalist Team 24/7 via pager @ [phone]. Supervising Physician Co-Signing Physician Notes Patient is a 59-year-old female with history of IBS, diverticulosis, ventral hernia, GERD and other problems presents with history of abdominal pain, chronic diarrhea, precordial pain, lightheadedness and heartburn. She follows with Dr. carbajal for IBS and GERD. She has history of cholecystectomy and subsequent exploratory laparotomies for adhesions, CBD stones. CT abdomen suggestive of nonspecific enteritis, moderate colonic diverticulosis, hepatic steatosis with hepatomegaly. Appreciate surgery input. Patient will be started on IV antibiotics, IV fluids, and n.p.o. for now. Pain control. Initial troponin negative. EKG showed no signs of ischemia. Trend cardiac enzymes. Chest pain is reproducible on exam. No signs of asthma exacerbation noted. Stool studies to rule out C. difficile. On exam patient is obese, no apparent distress, normocephalic atraumatic, lungs are clear to auscultation, chest--reproducible chest tenderness. S1-S2, no murmur, abdomen-multiple surgical scars, periumbilical epigastric/ tenderness, no guarding or rigidity. No pedal edema, no focal neurological deficits. I personally reviewed the record. Patient is interviewed and examined at bedside. Patient's care is coordinated with Heidi Guzman PA-C. Please refer to the documentation above for details of patient's presentation and for discussion of other issues. History of Present Illness Requesting Physician: Dr. Berrios/Jean Claude Latham PA-C Reason for Consultation: Medical Management Attending Physician: Dr. Mari History of Present Illness This is a 59-year-old female who has a significant past medical history of HTN, HLD, GERD, IBS, asthma, diverticulosis who presented to [facility] ED secondary to abdominal pain that started approximately 5:30 AM. Pain was localized along scar in the middle of abdomen, described as "crampy,"constant, radiated to central and left precordium, made worse with walking and movement, improved with rest. Similar symptoms in the past but not to this severity. She tried a Bentyl without any relief. At approximately 10 AM pain was, "doubling me over," so she came to ER. She had associated dry heaves and episode of diarrhea. Diarrhea not unusual as is her main symptom with IBS. She also described lightheadedness but no syncope or presyncope. She denies any fever, chills, sweats, palpitations, shortness of breath, emesis, cough, hemoptysis, melena, hematochezia, dysuria, hematuria, increased urgency frequency with urination. When describing abdominal pain she states it did radiate to left precordium. Pain overall felt, "different." She had slight radiation to left shoulder and was described as, "heart burn." She took Tylenol and Zantac with relief. No recent illness or sick contacts. She follows with Dr. Carbajal for IBS. Patient has extensive abdominal surgical history including a cholecystectomy and appendectomy approximately 30 years ago. She continued to have abdominal pain in which he had to undergo exploratory laparotomy x2 with lysis of adhesions, c holedocholithiasis status post EUS with sphincterotomy, . In ED patient was noted to have a white count of 19.4 1K, H&H stable at 14.9 and 42.9 completely 315. She was hemodynamically stable with a blood pressure 135/88 and heart rate of 63. Her LFTs were as follows AST 41, ALT 63, alk phos 175, T bili 0.6, lipase 150. Her troponin was WNL. Urinalysis unremarkable. CT scan of abdomen pelvis revealed thick-walled and inflamed loops of small bowel matted along the ventral abdominal wall, 1 of which is at least partially contained with infraumbilical hernia. There is associated interloop fluid and mesenteric venous and concordant. Appearance found to be consistent with nonspecific enteritis. Partially/intermittently incarcerated hernia is not excluded. There is no high-grade small bowel obstruction. Moderate colonic diverticulosis. Hepatomegaly and severe hepatic steatosis. Allergies Allergy/AdvReac Type Severity Reaction Status Date / Time pantoprazole Allergy Severe RASH ON ARM Unverified 03/14/19 13:04 Penicillins Allergy Unknown throat Verified 03/14/19 13:04 swelling Home Medications Home Medications Medication Instructions Recorded Confirmed Type ascorbic acid (vitamin C) [Vitamin 1 g PO DAILY 03/14/19 03/14/19 History C] atorvastatin 20 mg PO DAILY 03/14/19 03/14/19 History budesonide-formoterol [Symbicort] 2 puff INHALATION BID 03/14/19 03/14/19 History cetirizine [Zyrtec] 10 mg PO QAM 03/14/19 03/14/19 History dicyclomine 10 mg PO TID PRN 03/14/19 03/14/19 History lisinopril 5 mg PO QAM 03/14/19 03/14/19 History lorazepam 0.5 mg PO TID PRN 03/14/19 03/14/19 History dzokhpha-pnp-dqsz-FA-lutein 1 tab PO DAILY 03/14/19 03/14/19 History [Multivitamin Women 50 Plus] ranitidine HCl 300 mg PO HS 03/14/19 03/14/19 History vitamin E 400 unit PO DAILY 03/14/19 03/14/19 History Patient History Medical History IBS (irritable bowel syndrome) (Chronic) GERD (gastroesophageal reflux disease) (Chronic) Diverticulosis (Chronic) Hypertension (Chronic) Allergic rhinitis (Chronic) Asthma (Chronic) Ventral hernia (Chronic) Asthma (Chronic) Surgical History History of appendectomy (Chronic) History of (Chronic) History of tubal ligation (Chronic) History of exploratory laparotomy (Chronic) X2; back in 1980s required lysis of adhesions History of ERCP (Chronic) H/O: hysterectomy (Chronic) Hx of cholecystectomy (Chronic) Family History Father Lung cancer Mother Lung disease Other Asthma Diabetes Heart disease Social History Preferred Language: Barbadian Communication Ability: Effective 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 Physical Exam Physical Exam: Gen: WD/WN, F, NAD, sitting up in bed, pleasant, conversing easily Head: Normocephalic, Atraumatic Eyes: Sclera normal, no conjunctival injection, PERRLA, EOMI ENT: Gross hearing intact, normal pharynx, mucous membranes moist Neck: supple, no adenopathy, No JVD, no bruit, Resp: Clear to auscultation b/l, no wheeze, rales, rhonchi. Normal insp/exp effort, no accessory muscle use CV: Regular rate, regular rhythm, no murmur, rub, gallop, or ectopy Abd: Obese abdomen, multiple scars noted. Tender to periumbilical region, epigastric region, nondistended, no signs of peritonitis, no rigidity or guarding or rebound +BS x 4, soft Musculoskeletal: moves extremities active rom x 4, strength intact, good chip bin conveyor tender strength Extremities: No edema bilaterally Skin: warm, moist, no rash, negative turgor, cap refill < 2sec Neuro: Alert and oriented x 3, speech normal, good mood/affect, cran nerve 2-12 intact grossly : deferred Results & Data Vital Signs (Past 12 Hours) Vital Signs Temp Pulse Pulse Resp BP BP Pulse Ox 03/14/19 16:00 63 15 135/88 94 03/14/19 15:38 68 18 129/91 95 03/14/19 15:37 62 21 129/91 93 03/14/19 14:30 70 17 133/90 97 03/14/19 14:02 64 18 129/90 96 03/14/19 14:00 93 03/14/19 13:30 74 21 03/14/19 13:00 81 20 03/14/19 12:30 84 18 03/14/19 12:28 89 19 03/14/19 12:03 67 18 98 03/14/19 12:00 74 17 145/88 H 93 03/14/19 11:12 37.0 C 73 20 171/91 H 97 Laboratory Results Short CBC 03/14/19 Range/Units 11:50 WBC 19.41 H (4.8-10.8) K/uL Hgb 14.9 (12.0-16.0) g/dL Hct 42.9 (37-47) % Plt Count 315 (130-400) K/uL BMP 03/14/19 11:50 Sodium 138 Potassium 4.2 Chloride 104 Carbon Dioxide 27 BUN 14 Creatinine 0.78 Glucose 98 Calcium 9.6 Cardiac Enzymes 03/14/19 Range/Units 11:50 Troponin I < 0.015 (0-0.045) ng/ml Liver Function 03/14/19 Range/Units 11:50 Total Bilirubin 0.6 (0.2-1) mg/dl AST 42 H (15-37) U/L ALT 63 (12-78) U/L Alkaline Phosphatase 175 H (45-117) U/L Albumin 4.1 (3.4-5.0) gm/dl Urine 03/14/19 Range/Units 13:50 Urine Color Dark Yellow Urine Appearance Clear (Clear) Urine pH 7.0 (4.5-7.5) Ur Specific [place] 1.023 (1.000-1.030) Urine Protein Negative (Negative) Urine Glucose (UA) Negative (Negative) Diagnostic Findings CXR: IMPRESSION: No active disease in the chest. Abd/Pelvis CT: IMPRESSION: 1. There are thick-walled and inflamed loops of small bowel matted along the ventral abdominal wall, one of which is at least partially contained within an infraumbilical hernia. There is associated interloop fluid and mesenteric venous and concordant. No intraperitoneal free air is seen. 2. The appearance is consistent with a nonspecific enteritis involving these bowel loops. The remaining small bowel loops are normal in appearance, and given the localized findings the potential for a partially/intermittently incarcerated internal hernia is not excluded. There may also be a partially/intermittently incarcerated loop within the infraumbilical hernia. Surgical consultation is advised. 3. There is no high-grade bowel obstruction, as enteric contrast reaches the colon. 4. Moderate colonic diverticulosis without CT evidence of acute diverticulitis. 5. Hepatomegaly and severe hepatic steatosis. 6. Fibroid uterus. 7. Additional findings as above. Medications Administered Ioversol (Optiray 320 100ml) 94 ml IV ONCE PRN PRN Reason: Interaction Checking Stop: 03/18/19 14:39 Last Admin: 03/14/19 14:41 Dose: 94 ml Documented by: [id number] Discontinued Medications Sodium Chloride (Nss 1000ml) 1,000 mls @ 999 mls/hr IV .Q1H1M ONE Stop: 03/14/19 12:42 Last Infusion: 03/14/19 13:48 Dose: 0 mls/hr Documented by: [id number] Admin: 03/14/19 12:15 Dose: 999 mls/hr Documented by: [id number] Acetaminophen (Ofirmev) 1,000 mg in 100 mls @ 400 mls/hr IV NOW STA Stop: 03/14/19 16:25 Last Infusion: 03/14/19 16:52 Dose: 0 mls/hr Documented by: [id number] Admin: 03/14/19 16:19 Dose: 400 mls/hr Documented by: [id number] Morphine Sulfate (Morphine Sulfate) 8 mg IV NOW STA Stop: 03/14/19 11:43 Last Admin: 03/14/19 13:01 Dose: Not Given Documented by: [id number] Ondansetron HCl (Zofran) 4 mg IV NOW STA Stop: 03/14/19 11:43 Last Admin: 03/14/19 12:22 Dose: 4 mg Documented by: [id number] Ondansetron HCl (Zofran) 4 mg IV NOW STA Stop: 03/14/19 16:12 Last Admin: 03/14/19 16:19 Dose: 4 mg Documented by: [id number] ECG Rate (beats per minute): 78 Rhythm: normal sinus
[2019-03-14] MEDS ORDERED: DICYCLOMINE HCL 10 MG CAP PO PRN (17:54)
[2019-03-14] MEDS ORDERED: CIPROFLOXACIN 400 MG/200 ML BAG IV SCH (19:00)
[2019-03-14] MEDS: SODIUM CHLORIDE 0.9% 1000ML 1,000 ML IV SCH (19:17)
[2019-03-14] MEDS: BUDESONIDE/FORMOTEROL FUMARATE 160/4.5 60 PUFFS/INHALER INH SCH (21:47)
[2019-03-14] MEDS: KETOROLAC TROMETHAMINE 15 MG/ML VIAL IV PRN (21:48)
[2019-03-14] MEDS: ACETAMINOPHEN 1,000 MG/100 ML VIAL IV PRN (22:24)
[2019-03-14] MEDS: metroNIDAZOLE 500 MG/100 ML BAG IV SCH (22:53)
[2019-03-15] MEDS: SODIUM CHLORIDE 0.9% 1000ML 1,000 ML IV SCH (04:22)
[2019-03-15] MEDS: metroNIDAZOLE 500 MG/100 ML BAG IV SCH (05:51)
--- NOTE | 2019-03-15 07:04 | Progress Note ---
Date of Service March 15, 2019 Assessment & Plan (1) Incisional hernia: pt has intermittent abd pain associated with incisional hernia just below and to Rt of umbilicus- I was able to palpate after she was walking- easily reduced with loop of bowel- suspect this is a recurrent theme- discussed repair Tuesday- will try diet and likely d/c home later today. Subjective see a/p Results & Data Vital Signs (Past 12 Hours) Vital Signs Temp Pulse Resp BP Pulse Ox Pulse Ox 03/15/19 00:05 95 03/14/19 23:14 36.9 C 55 L 14 122/79 95
[2019-03-15 07:12] LABS: Basophils # (auto) 0.03 K/uL (0-0.2); Basophils % (auto) 0.3 %; Eosinophils # (auto) 0.18 K/uL (0-0.5); Eosinophils % (auto) 1.8 %; Hematocrit (blood only) 38.7 % (37-47); Hemoglobin 12.8 g/dL (12.0-16.0); Immature Granulocytes # (auto) 0.07 K/uL (0.00-0.02); Immature Granulocytes % (auto) 0.7 %; Lymphocytes # (auto) 1.95 K/uL (1.2-3.4); Lymphocytes % (auto) 19.9 %; Mean Corpuscular Hgb Conc 33.1 g/dL (32-36); Mean Corpuscular Volume 85.6 fL (80-100); Monocytes # (auto) 0.59 K/uL (0.11-0.59); Neutrophils % (auto) 71.3 %; Platelet Count 267 K/uL (130-400); RDW Coefficient of Variation 13.2 % (11.5-14.5); Red Blood Count 4.52 M/uL (4.2-5.4); White Blood Count 9.82 K/uL (4.8-10.8)
[2019-03-15] MEDS: KETOROLAC TROMETHAMINE 15 MG/ML VIAL IV PRN ×2 (07:23→13:30)
[2019-03-15] MEDS: BUDESONIDE/FORMOTEROL FUMARATE 160/4.5 60 PUFFS/INHALER INH SCH (07:25)
[2019-03-15 07:46] LABS: BUN Creatinine Ratio 15.9 (10-20); Calcium 9.1 mg/dl (8.5-10.1); Creatinine Clr Calc Pharmacy 83.3 ml/min; Est GFR (African American) 96.3; Est GFR (Non-African American) 83.1; Potassium 4.4 mmol/L (3.5-5.1)
[2019-03-15] MEDS ORDERED: LISINOPRIL 5 MG TAB PO SCH (09:00)
[2019-03-15] MEDS: ACETAMINOPHEN 1,000 MG/100 ML VIAL IV PRN (09:21)
--- NOTE | 2019-03-15 12:22 | Hospitalist Progress Note ---
Date of Service March 15, 2019 Assessment & Plan (1) Abdominal pain: Patient is a 59 yr female who has a significant past medical history of HTN, HLD, GERD, IBS, asthma, diverticulosis who presented to [facility] ED secondary to abdominal pain. Incisional Hernia: Leukocytosis normalized lipase 150 Normal Lactate levels --CT scan of abdomen pelvis revealed thick-walled and inflamed loops of small bowel matted along the ventral abdominal wall, 1 of which is at least partially contained with infraumbilical hernia. There is associated interloop fluid and mesenteric venous and concordant. Appearance found to be consistent with nonspecific enteritis. Partially/intermittently incarcerated hernia is not excluded. There is no high-grade small bowel obstruction. Moderate colonic diverticulosis. Hepatomegaly and severe hepatic steatosis. --Appreciate Surgery Input Plan for elective hernia repair on Tuesday Received IV Cipro and Flagyl for enteritis Surgery on board Pain control Received IV fluids Atypical Chest pain Likely musculoskeletal in origin Reproducible on exam Chest pain resolved Cardiac enzymes X2: Negative EKG showed no signs of acute ischemia Advised to follow-up with her staff field engineer if reoccurs as outpatient (2) Hypertension: Elevated blood pressure initially likely situational secondary to pain Blood pressure improved Continue lisinopril (3) Asthma: No acute exacerbation Continue Symbicort, daniel (4) GERD (gastroesophageal reflux disease): Continue ranitidine at bedtime (5) IBS (irritable bowel syndrome): Continue Bentyl as needed (6) DVT prophylaxis: SCDS/TEDs per surgery Disposition: Per Surgery Follow up: PCP Dr. Fitch/Faina Alvarez PA-C upon discharge Subjective Patient is seen and examined at bedside States having intermittent abdominal pain at the site of incisional hernia Chest pain resolved Denies any shortness of breath, dizziness, cough Plan for elective incisional hernia repair on Tuesday Possible discharge home today Review of Systems Review of Systems: All systems reviewed & are unremarkable except as noted in HPI & below Physical Exam Physical Exam: Physical Exam: Vitals signs as noted above General Appearance:Obese, no apparent distress Head: normocephalic, Atraumatic Eyes: normal inspection, EOMI Neck: supple, Trachea midline Respiratory/Chest: Normal breath sounds, CTA Cardiovascular: S1, S2, No murmur Abdomen/GI:Soft, mild tender, Multiple Surgical scars, +Abdominal hernia, Bowel sounds present Extremities/Musculoskelatal:normal inspection, no edema Neurologic/Psych:AAOX3, grossly no focal neurological deficits Skin: normal color, warm Results & Data Vital Signs (Past 12 Hours) Vital Signs Temp Pulse Resp BP Pulse Ox 03/15/19 07:12 36.8 C 55 L 16 114/71 98 Laboratory Results Short CBC 03/15/19 Range/Units 06:59 WBC 9.82 (4.8-10.8) K/uL Hgb 12.8 (12.0-16.0) g/dL Hct 38.7 (37-47) % Plt Count 267 (130-400) K/uL BMP 03/14/19 03/15/19 11:50 06:59 Sodium 138 141 Potassium 4.2 4.4 Chloride 104 108 H Carbon Dioxide 27 27 BUN 14 13 Creatinine 0.78 0.79 Glucose 98 92 Calcium 9.6 9.1 Cardiac Enzymes 03/14/19 03/14/19 Range/Units 11:50 21:01 Troponin I < 0.015 < 0.015 (0-0.045) ng/ml Liver Function 03/14/19 Range/Units 11:50 Total Bilirubin 0.6 (0.2-1) mg/dl AST 42 H (15-37) U/L ALT 63 (12-78) U/L Alkaline Phosphatase 175 H (45-117) U/L Albumin 4.1 (3.4-5.0) gm/dl Urine 03/14/19 Range/Units 13:50 Urine Color Dark Yellow Urine Appearance Clear (Clear) Urine pH 7.0 (4.5-7.5) Ur Specific [place] 1.023 (1.000-1.030) Urine Protein Negative (Negative) Urine Glucose (UA) Negative (Negative)
--- NOTE | 2019-03-17 01:27 | Discharge Summary ---
PRIMARY DISCHARGE DIAGNOSIS: Incisional hernia. SECONDARY DISCHARGE DIAGNOSES: 1. Hypertension. 2. Asthma. 3. Gastroesophageal reflux disease. 4. Irritable bowel syndrome. PROCEDURE PERFORMED: None. HOSPITAL COURSE: The patient is a 59-year-old female who presented to the Emergency Department with abdominal pain and nausea. She had a CT of the abdomen which showed a ventral hernia. The hernia was soft and not incarcerated, although her white count was 19,000. She was admitted to the surgical service for observation, rule out bowel ischemia. Hospitalist service was consulted routinely. Her pain had improved significantly while she was in the Emergency Department. Overnight, she continued to improve. Next morning her white count had normalized and pain was significantly improved. She was able to tolerate diet. She was stable for discharge later in the day. She will follow up early next week for repair of the hernia. DISCHARGE INSTRUCTIONS: Discharge home, will return on Tuesday for laparoscopic hernia repair. DISCHARGE MEDICATIONS: Continue home medications Vitamin C 1 gram daily, atorvastatin 20 mg daily, Zyrtec 10 mg daily, Bentyl 10 mg 3 times a day as needed, lisinopril 5 mg daily, lorazepam 0.5 mg p.o. t.i.d. daily, multivitamin and Zantac 300 mg at bedtime, Symbicort 2 puffs b.i.d., vitamin E 400 units daily.
== END 2019-03-15 14:56 | disposition home or self-care (01) ==
LOC: ED 10:53 → 3W 10:53

== ENCOUNTER 2019-03-19 06:42 | Inpatient (IN) ==
--- NOTE | 2019-03-15 14:55 | Anesthesiology Consultation ---
Date of Service March 15, 2019 Assessment & Plan (1) Encounter for pre-operative examination: - No anesthesia records available Chart Review Chart Review: Acceptable Risk for Surgery and Patient NOT seen in Pre Admission Testing Consults Requested none History Surgery Operation Date: 03/19/19 08:20 Proposed Procedures p Laparoscopic Incisional Hernia Repair - Kevin Berrios MD, FACS Height/Weight Height: 5 ft 2 in Weight: 93.2 kg Allergies Allergy/AdvReac Type Severity Reaction Status Date / Time pantoprazole Allergy Severe RASH ON ARM Unverified 03/14/19 13:04 Penicillins Allergy Unknown throat Verified 03/14/19 13:04 swelling Medications Home Medications Medication Instructions Recorded Confirmed Last Taken Multivitamin Women 50 Plus 1 tab PO DAILY 03/14/19 03/14/19 Unknown Symbicort 2 puff INHALATION BID 03/14/19 03/14/19 03/14/19 ascorbic acid (vitamin C) [Vitamin 1 g PO DAILY 03/14/19 03/14/19 Unknown C] atorvastatin 20 mg PO DAILY 03/14/19 03/14/19 Unknown cetirizine [Zyrtec] 10 mg PO QAM 03/14/19 03/14/19 03/14/19 dicyclomine 10 mg PO TID PRN 03/14/19 03/14/19 03/14/19 07:00 lisinopril 5 mg PO QAM 03/14/19 03/14/19 03/14/19 lorazepam 0.5 mg PO TID PRN 03/14/19 03/14/19 Unknown ranitidine HCl 300 mg PO HS 03/14/19 03/14/19 03/13/19 vitamin E 400 unit PO DAILY 03/14/19 03/14/19 Unknown Past Medical History Medical History IBS (irritable bowel syndrome) (Chronic) GERD (gastroesophageal reflux disease) (Chronic) Diverticulosis (Chronic) Hypertension (Chronic) Allergic rhinitis (Chronic) Asthma (Chronic) Ventral hernia (Chronic) Asthma (Chronic) Past Family History Family History Father Lung cancer Mother Lung disease Other Asthma Diabetes Heart disease Past Surgical History Surgical History History of appendectomy (Chronic) History of (Chronic) History of tubal ligation (Chronic) History of exploratory laparotomy (Chronic) X2; back in 1980s required lysis of adhesions History of ERCP (Chronic) H/O: hysterectomy (Chronic) Hx of cholecystectomy (Chronic) Social History Smoking Status: Never smoker Hx Alcohol Use: No Hx Substance Use: No substance use type: does not use Testing Laboratory Results Laboratory Tests 03/15/19 03/15/19 06:59 06:59 WBC 9.82 Hgb 12.8 Hct 38.7 Plt Count 267 Sodium 141 Potassium 4.4 Chloride 108 H Carbon Dioxide 27 BUN 13 Creatinine 0.79 Glucose 92 Urine - Negative Electrocardiogram Date: 03/15/19 Findings: + NSR @ (64) When compared with ECG of 03/14/19, nonspecific T wave abnormality no longer evident in anterior leads. Chest X-Ray Date: 03/14/19 Findings: + NAD FINDINGS: The cardiac and mediastinal contours are normal. There is no evidence of focal pulmonary consolidation. There is no evidence of failure. No pleural effusions are visualized.[No free intraperitoneal air is visualized. IMPRESSION: No active disease in the chest. Other Testing CT SCAN OF THE ABDOMEN AND PELVIS WITH IV CONTRAST 03/14/19 FINDINGS: Lung bases: The heart is normal in size and without pericardial effusion. The lung bases are clear noting bibasilar atelectasis. There is a tiny hiatal hernia. Liver: The contrast-enhanced liver is enlarged and demonstrates diffusely diminished attenuation consistent with severe hepatic steatosis. There is no intrahepatic biliary ductal dilatation. The hepatic veins and portal veins are patent. Gallbladder: Surgically absent. Spleen: Normal in size and attenuation. Pancreas: Unremarkable. Adrenal glands: Unremarkable. Kidneys: The contrast enhanced kidneys are normal in size and without hydronephrosis. The kidneys enhance symmetrically. Abdominal vasculature: The abdominal aorta is normal in course and caliber noting moderate atherosclerotic calcification. Bowel: There are thick-walled loops of mildly dilated small bowel in the anterior mid abdomen matted against the ventral abdominal wall, one of which is partially contained within a fat-containing ventral hernia located below the umbilicus. There is significant surrounding inflammatory change as well as mild venous engorgement. There is trace interloop fluid. There is no pneumatosis intestinalis or portal venous gas. No high-grade bowel obstruction is seen. Enteric contrast reaches the colon. There is a small duodenal diverticulum. There is moderate colonic diverticulosis without CT evidence of acute diverticulitis. The appendix is not identified and reported surgically absent. Peritoneum: There is no intraperitoneal free air or abdominal ascites. Lymphadenopathy: None. Pelvic viscera: The bladder is normal as visualized. There are calcified uterine fibroids. No adnexal lesion is seen. There are small ovarian follicles. Skeletal structures: No lytic or blastic lesions are seen. Arthritic change is noted in the right hip with large cystic foci identified in the femoral head. IMPRESSION: 1. There are thick-walled and inflamed loops of small bowel matted along the ventral abdominal wall, one of which is at least partially contained within an infraumbilical hernia. There is associated interloop fluid and mesenteric venous and concordant. No intraperitoneal free air is seen. 2. The appearance is consistent with a nonspecific enteritis involving these bowel loops. The remaining small bowel loops are normal in appearance, and given the localized findings the potential for a partially/intermittently incarcerated internal hernia is not excluded. There may also be a partially/intermittently incarcerated loop within the infraumbilical hernia. Surgical consultation is advised. 3. There is no high-grade bowel obstruction, as enteric contrast reaches the colon. 4. Moderate colonic diverticulosis without CT evidence of acute diverticulitis. 5. Hepatomegaly and severe hepatic steatosis. 6. Fibroid uterus. 7. Additional findings as above.
[~2019-03-19 06:42] MED LIST changes: +CEFAZOLIN 2000MG 2,000 MG/15 ML SYR IV SCH; -CETI10TA84 PO; -HYDR12.56 PO; +LR 15ML/HR IV SCH; -LSN5 PO; -SYMIN160 INH
[2019-03-19] MEDS ORDERED: ePHEDrine sulfate 50 MG/ML AMP IV PRN (08:05)
[2019-03-19] MEDS ORDERED: HYDROmorphone INJ 1 MG/ML SYRINGE IV PRN ×2 (08:05→10:05)
[2019-03-19] MEDS ORDERED: ATROPINE SULFATE 0.1 MG/ML 10ML SYR IV PRN (08:05)
[2019-03-19] MEDS ORDERED: LIDOCAINE HCL 1% 20 ML VIAL ONE (08:24)
[2019-03-19] MEDS ORDERED: CEFAZOLIN 250 MG/ML 1 GM VIAL ONE (08:24)
[2019-03-19] MEDS ORDERED: BUPIVACAINE 0.5 % 5 MG/1 ML MPF 30ML VIAL ONE (08:24)
[2019-03-19] MEDS ORDERED: PROPOFOL IV EMULSION 10 MG/ML 20 ML VIAL IV ONE (08:25)
[2019-03-19] MEDS ORDERED: MIDAZOLAM HCL 1 MG/ML 2ML VIAL ONE (08:25)
[2019-03-19] MEDS ORDERED: ROCURONIUM BROMIDE 10 MG/ML 5 ML VIAL ONE (08:25)
[2019-03-19] MEDS ORDERED: NEOSTIGMINE METHYLSULFATE 5 MG/5 ML SYR ONE (08:25)
[2019-03-19] MEDS ORDERED: LIDOCAINE HCL 2% 2 ML VIAL/AMP(20MG/ML) INFIL ONE (08:25)
[2019-03-19] MEDS ORDERED: DEXAMETHASONE SOD INJ 4 MG/ML VIAL ONE (08:25)
[2019-03-19] MEDS ORDERED: ONDANSETRON INJ 2 MG/ML 2 ML VIAL ONE (08:25)
[2019-03-19] MEDS ORDERED: GLYCOPYRROLATE 0.2 MG/ML VIAL ONE (08:25)
[2019-03-19] MEDS ORDERED: fentaNYL citrate 100 MCG/2 ML VIAL ONE ×2 (08:25→09:35)
--- NOTE | 2019-03-19 08:32 | History & Physical Report ---
Date of Service March 19, 2019 Assessment & Plan (1) Incisional hernia: pt is for laparoscopic repair of incisional hernia possible open operation mesh placement History of Present Illness Primary Care Provider: Rafaela Fitch, pt with incisional hernia causing abd pain and likely intermittent obstruction for surgery to repair hernia Allergies Allergy/AdvReac Type Severity Reaction Status Date / Time pantoprazole Allergy Severe RASH ON ARM Verified 03/19/19 07:35 Penicillins Allergy Unknown throat Verified 03/19/19 07:35 swelling Home Medications Home Medications Medication Instructions Recorded Confirmed Type Multivitamin Women 50 Plus 1 tab PO DAILY 03/14/19 03/19/19 History Symbicort 2 puff INHALATION BID 03/14/19 03/19/19 History ascorbic acid (vitamin C) [Vitamin 1 g PO DAILY 03/14/19 03/19/19 History C] atorvastatin 20 mg PO DAILY 03/14/19 03/19/19 History cetirizine [Zyrtec] 10 mg PO QAM 03/14/19 03/19/19 History dicyclomine 10 mg PO TID PRN 03/14/19 03/19/19 History lisinopril 5 mg PO QAM 03/14/19 03/19/19 History lorazepam 0.5 mg PO TID PRN 03/14/19 03/19/19 History ranitidine HCl 300 mg PO HS 03/14/19 03/19/19 History polyethylene glycol 3350 [Miralax] 17 g PO DAILY 03/19/19 03/19/19 History psyllium husk (aspartame) 3.4 packet PO DAILY PRN 03/19/19 03/19/19 History [Metamucil Fiber Singles] Past Med/Surg History Medical History IBS (irritable bowel syndrome) (Chronic) GERD (gastroesophageal reflux disease) (Chronic) Diverticulosis (Chronic) Hypertension (Chronic) Allergic rhinitis (Chronic) Asthma (Chronic) Ventral hernia (Chronic) Asthma (Chronic) Surgical History History of appendectomy (Chronic) History of (Chronic) History of tubal ligation (Chronic) History of exploratory laparotomy (Chronic) X2; back in 1980s required lysis of adhesions History of ERCP (Chronic) H/O: hysterectomy (Chronic) Hx of cholecystectomy (Chronic) Family History Father Lung cancer Mother Lung disease Other Asthma Diabetes Heart disease Social History Preferred Language: Nicaraguan Communication Ability: Effective Beliefs That Will Affect Care: None marital status: Current Living Situation: Spouse Feels Safe at Home: Yes Smoking Status: Never smoker Hx Alcohol Use: No Hx Substance Use: No Review of Systems All systems reviewed & are unremarkable except as noted in HPI & below Physical Exam Constitutional: well developed and well nourished; no acute distress Respiratory: normal respiratory effort; no respiratory distress Cardiovascular: Rate/Rhythm: regular rate and regular rhythm Gastrointestinal (Abdomen): Inspection/Auscultation: abdomen normal to inspection and normal bowel sounds reducible hernia just below and to Rt of umbilicus Skin: no rashes Psychiatric: Orientation: alert Results & Data Vital Signs (Past 12 Hours) Vital Signs Temp Pulse Resp BP Pulse Ox 03/19/19 07:43 37 C 59 L 18 143/86 H 98
[2019-03-19] MEDS ORDERED: CEFAZOLIN 2000MG 2,000 MG/15 ML SYR IV ONE (09:06)
--- NOTE | 2019-03-19 09:57 | Operative Report ---
Post Operative Report Pre & Post Diagnosis Operation Date: 03/19/19 08:20 Pre-Op Diagnosis: Incisional Hernia Post-Op Diagnosis: Incisional Hernia severe adhesions Procedure Operation Date: 03/19/19 08:20 Actual Procedures p Laparoscopic Incisional Hernia Repair with mesh, enterolysis(Not Applicable) - Kevin Berrios MD, FACS Surgeon Kevin Berrios MD, FACS Chief Steward/Stewardess Luciano Latham Estimated Blood Loss 30 Findings Consistent with Post-Op Diagnosis Specimens none Description of Procedure see dictation I attest to the content of the Intraoperative Record and any orders documented therein. Any exceptions are noted below.
[2019-03-19] MEDS ORDERED: ONDANSETRON INJ 2 MG/ML 2 ML VIAL IV PRN (10:05)
[2019-03-19] MEDS ORDERED: HYDROCODONE/ACETAMOPHEN 5/325MG TAB PO PRN ×2 (10:05)
[2019-03-19] MEDS ORDERED: HYDROmorphone INJ 0.5 MG/0.5 ML SYR IV PRN (10:05)
[2019-03-19] MEDS ORDERED: PROMETHAZINE HCL 25 MG in SODIUM CHLORIDE 0.9% 50 ML IV PRN (10:05)
[2019-03-19] MEDS ORDERED: PROMETHAZINE HCL 12.5 MG in SODIUM CHLORIDE 0.9% 50 ML IV PRN (10:05)
[2019-03-19] MEDS ORDERED: ACETAMINOPHEN 1,000 MG/100 ML VIAL IV SCH (10:15)
[2019-03-19] MEDS ORDERED: LABETALOL HCL IV 5 MG/ML 20ML IV ONE (10:16)
[2019-03-19] MEDS ORDERED: ACETAMINOPHEN 1000 MG/100 ML IV IV ONE (10:20)
[2019-03-19] MEDS: SODIUM CHLORIDE 0.9% 1000ML 1,000 ML IV SCH (11:17)
--- NOTE | 2019-03-19 11:19 | Anesthesiology Progress Note ---
Date of Service March 19, 2019 Anesthesia Post Procedure Vital Signs Vital Signs: Temp Pulse Resp BP Pulse Ox 03/19/19 10:50 36.8 C 67 17 125/79 98 03/19/19 10:40 36.8 C 58 L 14 122/68 95 03/19/19 10:30 36.3 C L 66 16 124/79 98 03/19/19 10:20 36.3 C L 63 19 122/68 95 03/19/19 10:12 36.3 C L 67 18 125/67 93 03/19/19 07:43 37 C 59 L 18 143/86 H 98 Transfer of Care Handoff Completed per policy Notes Mental Status: alert / awake / arousable Patient Amnestic to Procedure: Yes Nausea / Vomiting: adequately controlled Pain: adequately controlled Airway Patency, RR, SpO2: stable & adequate BP & HR: stable & adequate Hydration State: stable & adequate Anesthetic Complications: no major complications apparent and Pt Satisfied with anesthetic care
--- NOTE | 2019-03-19 12:24 | Operative Report ---
DATE OF OPERATION: 03/19/2019 NAME OF OPERATION: Incisional hernia repair with extensive enterolysis. STAFF SURGEON: Kevin Berrios MD CASUALTY CLAIM ADJUSTER: Gen Latham PA-C ANESTHESIA: General. DESCRIPTION OF PROCEDURE: The patient was brought in the operating room and placed on the operating table in supine position. Her abdomen was prepped and draped in usual fashion. She voided preoperatively. Orogastric tube and pneumatic stockings were placed. 0.5% plain Marcaine was used to anesthetize all incisions. Incision was made in the left upper quadrant carrying dissection down to the fascia, placing a Veress needle producing pneumoperitoneum. An 11 mm port was placed at this level. The camera was passed. It was difficult to see medially because of the significant adhesions of the small bowel and omentum. I was able to see the left lateral space and able to place two 5 mm ports. At this point, with a 5 mm scope, I was able to begin lysis of adhesions, which were both small bowel and omentum away from the abdominal wall and then identified the right abdominal wall and placed two 5 mm ports there. At this point, we continued with extensive lysis of adhesions, identifying the hernia which was approximately 3 cm in diameter containing both omentum and small bowel. The contents were reduced and then a 12.5 cm piece of Surgimesh was obtained, placed into the abdomen with the mesh toward the fascia silicone toward the bowel. It was brought up through a stab incision in the hernia sac and then it was secured in 2 rows, an outer row and inner row of absorbable tacks. The abdomen was irrigated and aspirated. Hemostasis was maintained. All ports were then removed. The left upper quadrant fascia was closed using 0 PDS suture. The 5 mm port sites closed using 5-0 Prolene suture. The left upper quadrant skin closed using subcuticular 4-0 Monocryl and Steri-Strips. Dressings applied and the patient transferred to recovery room in stable condition. My kindergarten instructional assistant, Jean Claude Latham helped with prepping, draping, repair of the hernia and closure of the wounds. I attest to the content of the Intraoperative Record and any orders documented therein. Any exception s are noted below.
[2019-03-19] MEDS ORDERED: PNEUMOCOCCAL ADMINISTRATION CHARGE ONE (13:45)
[2019-03-19] MEDS ORDERED: PNEUMOCOCCAL POLYSACCHARIDES 25 MCG/0.5 ML VIAL/SYR IM ONE (13:45)
[2019-03-19 17:21] LABS: Partial Thromboplastin Ratio 0.9; Partial Thromboplastin Time 25.6 Seconds (21.0-31.0); Prothrombin Time 10.4 Seconds (9.0-12.0)
[2019-03-19] MEDS ORDERED: CEFAZOLIN 2000MG 2,000 MG/15 ML SYR IV SCH (18:00)
[2019-03-19] MEDS: CEFAZOLIN 1000MG 1,000 MG/7.5 ML SYR IV SCH (18:03)
[2019-03-19] MEDS: DOCUSATE SODIUM/SENNA 50/8.6MG TAB PO SCH (20:27)
[2019-03-19] MEDS: BUDESONIDE/FORMOTEROL FUMARATE 160/4.5 60 PUFFS/INHALER INH SCH (20:28)
[2019-03-19] MEDS: ACETAMINOPHEN 325 MG TAB PO PRN (20:31)
[2019-03-19] MEDS: IBUPROFEN 600 MG TAB PO PRN (23:26)
[2019-03-20] MEDS: CEFAZOLIN 1000MG 1,000 MG/7.5 ML SYR IV SCH ×3 (02:51→19:02)
[2019-03-20 05:44] LABS: Basophils # (auto) 0.01 K/uL (0-0.2); Basophils % (auto) 0.1 %; Eosinophils # (auto) 0.01 K/uL (0-0.5); Eosinophils % (auto) 0.1 %; Hematocrit (blood only) 35.9 % (37-47); Immature Granulocytes % (auto) 0.6 %; Lymphocytes # (auto) 2.45 K/uL (1.2-3.4); Lymphocytes % (auto) 14.3 %; Mean Corpuscular Hgb Conc 33.4 g/dL (32-36); Mean Corpuscular Volume 86.1 fL (80-100); Mean Platelet Volume 8.8 fL (7.4-10.4); Monocytes # (auto) 1.17 K/uL (0.11-0.59); Monocytes % (auto) 6.8 %; Neutrophils % (auto) 78.1 %; Platelet Count 320 K/uL (130-400); RDW Coefficient of Variation 13.2 % (11.5-14.5); RDW Standard Deviation 41.2 fL (36.4-46.3); Red Blood Count 4.17 M/uL (4.2-5.4); White Blood Count 17.14 K/uL (4.8-10.8)
[2019-03-20] MEDS: ACETAMINOPHEN 325 MG TAB PO PRN ×2 (05:45→15:35)
[2019-03-20] MEDS: SODIUM CHLORIDE 0.9% 1000ML 1,000 ML IV SCH (05:45)
[2019-03-20 05:55] LABS: INR 1.1 (0.9-1.1); Partial Thromboplastin Ratio 0.9; Partial Thromboplastin Time 24.4 Seconds (21.0-31.0); Prothrombin Time 10.8 Seconds (9.0-12.0)
[2019-03-20 06:17] LABS: Albumin Level 3.4 gm/dl (3.4-5.0); Calcium 8.7 mg/dl (8.5-10.1); Creatinine Clr Calc Pharmacy 79.6 ml/min; Est GFR (African American) 92.1; Est GFR (Non-African American) 79.4; Potassium 4.2 mmol/L (3.5-5.1)
[2019-03-20 06:20] LABS: Bilirubin,Total 0.6 mg/dl (0.2-1); Globulin 3.3 gm/dl (2.5-4.0); Phosphorus 3.9 mg/dl (2.5-4.9); Total Protein 6.7 gm/dl (6.4-8.2)
--- NOTE | 2019-03-20 07:02 | Progress Note ---
Date of Service March 20, 2019 Assessment & Plan (1) Incisional hernia: pts vitals stable, excellent ur outpt no acute signs of bleeding- cont IV atbx, monitor bowel function probable d/c tomorrow- walk in hallway Subjective see a/p Results & Data Vital Signs (Past 12 Hours) Vital Signs Temp Pulse Resp BP Pulse Ox 03/20/19 03:20 36.5 C 79 14 114/70 93 03/19/19 23:06 36.8 C 64 15 146/79 H 93 03/19/19 20:25 36.7 C 65 18 148/90 H 93
[2019-03-20] MEDS: LISINOPRIL 5 MG TAB PO SCH (07:11)
[2019-03-20] MEDS: ATORVASTATIN 20 MG TAB PO SCH (07:11)
[2019-03-20] MEDS: POLYETHYLENE (MIRALAX) 17 GM PACK PO SCH (07:11)
[2019-03-20] MEDS: CETIRIZINE HCL 10 MG TABLET PO SCH (07:11)
[2019-03-20] MEDS: BUDESONIDE/FORMOTEROL FUMARATE 160/4.5 60 PUFFS/INHALER INH SCH ×2 (07:12→20:57)
[2019-03-20] MEDS: DOCUSATE SODIUM/SENNA 50/8.6MG TAB PO SCH ×2 (07:12→20:58)
--- NOTE | 2019-03-20 07:42 | Anesthesiology Progress Note ---
Date of Service March 20, 2019 Anesthesia Post Procedure Vital Signs Vital Signs: Temp Pulse Resp BP BP Pulse Ox 03/20/19 07:16 36.5 C 56 L 14 132/83 94 03/20/19 03:20 36.5 C 79 14 114/70 93 03/19/19 23:06 36.8 C 64 15 146/79 H 93 03/19/19 20:25 36.7 C 65 18 148/90 H 93 03/19/19 15:13 36.7 C 56 L 17 150/81 H 95 03/19/19 14:30 76 19 151/91 H 94 03/19/19 13:13 36.7 C 76 19 146/67 H 94 03/19/19 12:05 60 18 131/87 92 03/19/19 11:44 62 18 126/76 94 03/19/19 11:05 36.7 C 57 L 14 129/80 94 03/19/19 10:50 36.8 C 67 17 125/79 98 03/19/19 10:40 36.8 C 58 L 14 122/68 95 03/19/19 10:30 36.3 C L 66 16 124/79 98 03/19/19 10:20 36.3 C L 63 19 122/68 95 03/19/19 10:12 36.3 C L 67 18 125/67 93 03/19/19 07:43 37 C 59 L 18 143/86 H 98 Pain Intensity Abdomen: Pain Intensity: 2 Notes Mental Status: alert / awake / arousable and participated in evaluation Nausea / Vomiting: adequately controlled Pain: adequately controlled Airway Patency, RR, SpO2: stable & adequate BP & HR: stable & adequate Hydration State: stable & adequate Anesthetic Complications: Pt Satisfied with anesthetic care
[2019-03-20] MEDS: MAGNESIUM HYDROXIDE SUSP 30 ML UDC PO SCH ×2 (08:54→20:58)
[2019-03-20] MEDS: HEPARIN SOD 5,000 UNIT/0.5 ML VIAL SQ SCH ×2 (08:54→21:02)
--- NOTE | 2019-03-20 12:48 | Hospitalist Consultation ---
Date of Consultation March 20, 2019 Assessment & Plan (1) Incisional hernia: - S/p repair on 03/19/19, POD#1. - Pain control per primary team. - DVT ppx: Heparin 5,000 units q12hr. - Cefazolin 1 gm IV q8hr. (2) IBS (irritable bowel syndrome): - Holding home Bentyl and Metamucil. - Currently receiving laxatives/softeners post op. (3) GERD (gastroesophageal reflux disease): - Ranitidine 300 mg qhs. (4) Asthma: - Continue home Symbicort BID. (5) Hypertension: - Continue Lisinopril 5 mg qAM as prescribed. (6) HLD (hyperlipidemia): - Continue statin as prescribed. (7) DVT prophylaxis: - Heparin q12hr. Dispo: Pt. is medically stable, will sign off. Please call with any questions. History of Present Illness Reason for Consultation: Medical Management Attending Physician: Kevin Berrios MD, [facility] History of Present Illness Ms. Estes is a 59 year old female with past medical history of IBS, GERD, HTN, Asthma who presented for a planned incisional hernia repair. She is currently POD#1, doing well. Allergies Allergy/AdvReac Type Severity Reaction Status Date / Time pantoprazole Allergy Severe RASH ON ARM Verified 03/19/19 07:35 Penicillins Allergy Unknown throat Verified 03/19/19 07:35 swelling Home Medications Home Medications Medication Instructions Recorded Confirmed Type Multivitamin Women 50 Plus 1 tab PO DAILY 03/14/19 03/19/19 History Symbicort 2 puff INHALATION BID 03/14/19 03/19/19 History ascorbic acid (vitamin C) [Vitamin 1 g PO DAILY 03/14/19 03/19/19 History C] atorvastatin 20 mg PO DAILY 03/14/19 03/19/19 History cetirizine [Zyrtec] 10 mg PO QAM 03/14/19 03/19/19 History dicyclomine 10 mg PO TID PRN 03/14/19 03/19/19 History lisinopril 5 mg PO QAM 03/14/19 03/19/19 History lorazepam 0.5 mg PO TID PRN 03/14/19 03/19/19 History ranitidine HCl 300 mg PO HS 03/14/19 03/19/19 History polyethylene glycol 3350 [Miralax] 17 g PO DAILY 03/19/19 03/19/19 History psyllium husk (aspartame) 3.4 packet PO DAILY PRN 03/19/19 03/19/19 History [Metamucil Fiber Singles] Patient History Medical History IBS (irritable bowel syndrome) (Chronic) GERD (gastroesophageal reflux disease) (Chronic) Diverticulosis (Chronic) Hypertension (Chronic) Allergic rhinitis (Chronic) Asthma (Chronic) Ventral hernia (Chronic) Asthma (Chronic) Surgical History History of appendectomy (Chronic) History of (Chronic) History of tubal ligation (Chronic) History of exploratory laparotomy (Chronic) X2; back in 1980s required lysis of adhesions History of ERCP (Chronic) H/O: hysterectomy (Chronic) Hx of cholecystectomy (Chronic) Family History Father Lung cancer Mother Lung disease Other Asthma Diabetes Heart disease Social History Preferred Language: Hungarian Communication Ability: Effective Beliefs That Will Affect Care: None marital status: Current Living Situation: Spouse Feels Safe at Home: Yes Smoking Status: Never smoker Hx Alcohol Use: No Hx Substance Use: No Results & Data Vital Signs (Past 12 Hours) Vital Signs Temp Pulse Resp BP Pulse Ox 03/20/19 11:29 36.3 C L 50 L 18 119/71 94 03/20/19 07:16 36.5 C 56 L 14 132/83 94 03/20/19 03:20 36.5 C 79 14 114/70 93 PG Care Time/CCT Total # of Minutes Spent Total Time Spent with Patient: Total time spent is greater than 50% in coordination of care (as documented) at patient's floor/unit and/or counseling patient:
--- NOTE | 2019-03-20 16:11 | Consultation ---
Date of Consultation March 20, 2019 Assessment & Plan (1) Incisional hernia: Post op day# 1 S/P laparoscopic incisional hernia repair with mesh by Dr Berrios H&H elle. Post op pain well controlled. -Pain management per general surgery -Wound management per general surgery -Incentive spirometry -Bowel regimen per general surgery -On cefazolin (2) IBS (irritable bowel syndrome): -Currently receiving stool softeners and laxatives post op -Home Bentyl and Metamucil are on hold (3) GERD (gastroesophageal reflux disease): -Continue ranitidine (4) Asthma: Denies SOB, CP, wheezing, cough Continue Symbicort (5) Hypertension: Stable -Continue Lisinopril (6) HLD (hyperlipidemia): -Continue statin DVT Prophylaxis -Heparin SQ Disposition per primary team Follows with Dr Fitch for routine care Pt was seen and care coordinated with Dr Saini. See addendum Supervising Physician Co-Signing Physician Notes I have seen and examined the patient and have discussed the case with the prov ider above. I agree with the assessment and plan as stated. She is eating well and post-op pain is well controlled. She has had a BM today. History of Present Illness Reason for Consultation: Post op medical management Attending Physician: Kevin Berrios MD, FACS History of Present Illness Pt is 59 y/o F with PMH HTN, HLD, GERD, IBS, asthma seen in medical consultation s/p laparoscopic incisional hernia repair with mesh on 03/19/[address] Berrios. Pt states is doing well post op. Pain controlled with Tylenol and Ibuprofen. Reports some "gas pains". Reports no BM yet. Bowel regimen increased today. Pt states has been ambulating in halls. Urinating without difficulty. Eating and drinking without difficulty. Denies nausea or vomiting. Denies fever/chills, diaphoresis, BREEN, dizziness, syncope, vision changes, neck pain, CP, SOB, orthopnea, palpitations, cough, sore throat, choking, otalgia, rhinorrhea, weakness, extremity edema, rashes, dysuria, hematuria, urinary frequency. Allergies Allergy/AdvReac Type Severity Reaction Status Date / Time pantoprazole Allergy Severe RASH ON ARM Verified 03/19/19 07:35 Penicillins Allergy Unknown throat Verified 03/19/19 07:35 swelling Home Medications Home Medications Medication Instructions Recorded Confirmed Type Multivitamin Women 50 Plus 1 tab PO DAILY 03/14/19 03/19/19 History Symbicort 2 puff INHALATION BID 03/14/19 03/19/19 History ascorbic acid (vitamin C) [Vitamin 1 g PO DAILY 03/14/19 03/19/19 History C] atorvastatin 20 mg PO DAILY 03/14/19 03/19/19 History cetirizine [Zyrtec] 10 mg PO QAM 03/14/19 03/19/19 History dicyclomine 10 mg PO TID PRN 03/14/19 03/19/19 History lisinopril 5 mg PO QAM 03/14/19 03/19/19 History lorazepam 0.5 mg PO TID PRN 03/14/19 03/19/19 History ranitidine HCl 300 mg PO HS 03/14/19 03/19/19 History polyethylene glycol 3350 [Miralax] 17 g PO DAILY 03/19/19 03/19/19 History psyllium husk (aspartame) 3.4 packet PO DAILY PRN 03/19/19 03/19/19 History [Metamucil Fiber Singles] cephalexin [Keflex] 500 mg PO TID #15 cap 03/20/19 Rx hydrocodone-acetaminophen [Lamar] 1 - 2 tab PO Q6H PRN #20 tab 03/20/19 Rx Patient History Medical History IBS (irritable bowel syndrome) (Chronic) GERD (gastroesophageal reflux disease) (Chronic) Diverticulosis (Chronic) Hypertension (Chronic) Allergic rhinitis (Chronic) Asthma (Chronic) Ventral hernia (Chronic) Asthma (Chronic) Surgical History History of appendectomy (Chronic) History of (Chronic) History of tubal ligation (Chronic) History of exploratory laparotomy (Chronic) X2; back in 1980s required lysis of adhesions History of ERCP (Chronic) H/O: hysterectomy (Chronic) Hx of cholecystectomy (Chronic) Family History Father Lung cancer Mother Lung disease Other Asthma Diabetes Heart disease Social History Preferred Language: Italian Communication Ability: Effective Beliefs That Will Affect Care: None marital status: Current Living Situation: Spouse Feels Safe at Home: Yes Smoking Status: Never smoker Hx Alcohol Use: No Hx Substance Use: No Review of Systems Review of Systems: All systems reviewed & are unremarkable except as noted in HPI & below Physical Exam Physical Exam: General: no distress, obese Head: normocephalic, atraumatic Eyes: PERRL, EOM's intact, conjunctiva non-injected, anicteric ENT: normal inspection external ears, nose, mucous membranes moist Neck: supple, trachea midline Lungs: clear, no respiratory distress, no wheezing/rhonchi/rales CV: RRR, no murmur, no pretibial edema Abd: hypoactive BS, surgical incision sites with dressing intact and dry, soft, mild tenderness palpation over incision sites only Ext: no cyanosis, no calf tenderness Neuro: A&O x 3, no focal deficits noted, normal affect Skin: warm, dry Results & Data Vital Signs (Past 12 Hours) Vital Signs Temp Pulse Resp BP Pulse Ox 03/20/19 11:29 36.3 C L 50 L 18 119/71 94 03/20/19 07:16 36.5 C 56 L 14 132/83 94 Laboratory Results Short CBC 03/20/19 Range/Units 05:29 WBC 17.14 H (4.8-10.8) K/uL Hgb 12.0 (12.0-16.0) g/dL Hct 35.9 L (37-47) % Plt Count 320 (130-400) K/uL BMP 03/20/19 05:29 Sodium 142 Potassium 4.2 Chloride 108 H Carbon Dioxide 28 BUN 12 Creatinine 0.82 Glucose 108 H Calcium 8.7 Liver Function 03/20/19 Range/Units 05:29 Total Bilirubin 0.6 (0.2-1) mg/dl AST 29 (15-37) U/L ALT 62 (12-78) U/L Alkaline Phosphatase 143 H (45-117) U/L Albumin 3.4 (3.4-5.0) gm/dl
[2019-03-20] MEDS: IBUPROFEN 600 MG TAB PO PRN (23:12)
[2019-03-21] MEDS: CEFAZOLIN 1000MG 1,000 MG/7.5 ML SYR IV SCH ×2 (02:29→09:46)
--- NOTE | 2019-03-21 06:18 | Discharge Summary ---
PRINCIPAL DIAGNOSIS: Incisional hernia and adhesions. PROCEDURES: The patient underwent laparoscopic incisional hernia repair with enterolysis. STAFF SURGEON: Kevin Berrios MD HISTORY OF PRESENT ILLNESS AND HOSPITAL COURSE: The patient is a 59-year-old female who has been having abdominal symptoms and required admission to the hospital related to an incisional hernia with intermittent bowel entrapment. The patient was brought into the hospital on 03/19/2019. She was taken to the operating room where she underwent laparoscopic lysis of adhesions with enterolysis and then laparoscopic repair of the incisional hernia. She has done quite well with her activity. She has good GI function and is felt stable for discharge home today, to be followed in the surgical clinic next week.
[2019-03-21 08:08] LABS: Hematocrit (blood only) 37.6 % (37-47); Hemoglobin 12.3 g/dL (12.0-16.0); Mean Corpuscular Hgb Conc 32.7 g/dL (32-36); Mean Corpuscular Volume 88.7 fL (80-100); Mean Platelet Volume 8.9 fL (7.4-10.4); Platelet Count 297 K/uL (130-400); RDW Coefficient of Variation 13.6 % (11.5-14.5); RDW Standard Deviation 43.8 fL (36.4-46.3); Red Blood Count 4.24 M/uL (4.2-5.4)
[2019-03-21 08:42] LABS: BUN Creatinine Ratio 20.3 (10-20); Creatinine Clr Calc Pharmacy 77.7 ml/min; Est GFR (African American) 89.4; Est GFR (Non-African American) 77.2; Potassium 3.9 mmol/L (3.5-5.1)
[2019-03-21] MEDS: DOCUSATE SODIUM/SENNA 50/8.6MG TAB PO SCH (08:54)
[2019-03-21] MEDS: ATORVASTATIN 20 MG TAB PO SCH (08:54)
[2019-03-21] MEDS: BUDESONIDE/FORMOTEROL FUMARATE 160/4.5 60 PUFFS/INHALER INH SCH (08:55)
[2019-03-21] MEDS: CETIRIZINE HCL 10 MG TABLET PO SCH (08:55)
[2019-03-21] MEDS: LISINOPRIL 5 MG TAB PO SCH (08:55)
[2019-03-21] MEDS: POLYETHYLENE (MIRALAX) 17 GM PACK PO SCH (08:56)
[2019-03-21] MEDS: HEPARIN SOD 5,000 UNIT/0.5 ML VIAL SQ SCH (08:57)
== END 2019-03-21 11:06 | disposition home or self-care (01) | DRG 331 ==
LOC: ASU 06:42 → 3W 10:03

== ENCOUNTER 2019-11-16 07:43 | Observation (INO) ==
--- NOTE | 2019-10-11 13:47 | PAT Medication Instructions ---
Medication Instructions Date of Service October 11, 2019 Home Medications Medication Instructions Recorded Saccharomyces boulardii [Florastor] 250 mg PO BID #20 cap 07/08/19 Multivitamin Women 50 Plus 1 tab PO QAM Symbicort 2 puff INHALATION QAM ascorbic acid (vitamin C) [Vitamin C] 1 g PO QAM atorvastatin [Lipitor] 20 mg PO QAM cetirizine [Zyrtec] 10 mg PO QAM lisinopril [Zestril] 5 mg PO QAM Metamucil Fiber Singles 3.4 packet PO QAM polyethylene glycol 3350 [Miralax] 17 g PO HS Saccharomyces boulardii [Florastor] 250 mg PO BID meloxicam [Mobic] 15 mg PO QAM aspirin [Aspirin Low Dose] 81 mg PO Q2D famotidine 40 mg PO HS omeprazole 40 mg PO QAM ASK your surgeon for instructions meloxicam [Mobic] 15 mg PO QAM DO NOT take the morning of surgery Multivitamin Women 50 Plus 1 tab PO QAM ascorbic acid (vitamin C) [Vitamin C] 1 g PO QAM cetirizine [Zyrtec] 10 mg PO QAM lisinopril [Zestril] 5 mg PO QAM Metamucil Fiber Singles 3.4 packet PO QAM Saccharomyces boulardii [Florastor] 250 mg PO BID Take morning of surgery With a small sip of water, OTHERWISE NOTHING TO EAT OR DRINK AFTER MIDNIGHT: Symbicort 2 puff INHALATION QAM atorvastatin [Lipitor] 20 mg PO QAM aspirin [Aspirin Low Dose] 81 mg PO Q2D omeprazole 40 mg PO QAM Take evening before surgery polyethylene glycol 3350 [Miralax] 17 g PO HS Saccharomyces boulardii [Florastor] 250 mg PO BID famotidine 40 mg PO HS Other Notes If you have any questions please call us at [phone] or [phone] or [phone] or [phone]
--- NOTE | 2019-10-15 09:33 | Anesthesiology Consultation ---
Date of Service October 15, 2019 Assessment & Plan (1) Encounter for pre-operative examination: Chart Review Chart Review: Pending: Refer to Additional Notes / Consult section (pending PCP response regarding previous LNs on CT and leukocytosis ) and Patient seen in Pre Admission Testing Hx of bronchitis in 06/2019- CXR from 06/2019 showed CM with mild central pulm vascular congestion. 06/2019 CTA of chest showed bilateral hilar lymphadenopathy- CT scan had recommended follow up CT scan or referral to pulm. (Did write note to PCP inquiring if evaluation or further testing needed prior to surgery- CXR showed no issues- no issues noted on exam) Leukocytosis noted on pre op labs- note wrote to PCP to address/clarify Pt menopausal- no hcg needed AM of surgery Teaching & Discussion Pre-Anesthesia Teaching/Discussion Notes: Instructed NPO after midnight before surgery,except medications with 15 cc of water. Medication instructions provided according to the PAT guidelines. History Surgery Operation Date: 11/16/19 08:30 Proposed Procedures p Right Anterior Total Hip Arthroplasty - Maximo Nguyen, Height/Weight Height: 5 ft 2 in Weight: 97.2 kg Allergies Allergy/AdvReac Type Severity Reaction Status Date / Time pantoprazole Allergy Severe RASH ON ARM Verified 10/15/19 08:14 Penicillins Allergy Unknown throat Verified 10/15/19 08:14 swelling Medications Home Medications Medication Instructions Recorded Confirmed Last Taken Multivitamin Women 50 Plus 1 tab PO QAM 03/14/19 10/15/19 07/07/19 Symbicort 2 puff INHALATION QAM 03/14/19 10/15/19 07/08/19 ascorbic acid (vitamin C) [Vitamin 1 g PO QAM 03/14/19 10/15/19 07/08/19 C] atorvastatin [Lipitor] 20 mg PO QAM 03/14/19 10/15/19 07/08/19 cetirizine [Zyrtec] 10 mg PO QAM 03/14/19 10/15/19 07/08/19 lisinopril [Zestril] 5 mg PO QAM 03/14/19 10/15/19 07/08/19 Metamucil Fiber Singles 3.4 packet PO QAM 03/19/19 10/15/19 07/08/19 polyethylene glycol 3350 [Miralax] 17 g PO HS 03/19/19 10/15/19 07/07/19 Saccharomyces boulardii [Florastor] 250 mg PO BID #20 cap 07/08/19 10/15/19 Unknown meloxicam [Mobic] 15 mg PO QAM 07/08/19 10/15/19 07/08/19 aspirin [Aspirin Low Dose] 81 mg PO Q2D 10/08/19 10/15/19 Unknown famotidine 40 mg PO HS 10/08/19 10/15/19 Unknown omeprazole 40 mg PO QAM 10/08/19 10/15/19 Unknown Past Medical History Medical History (Updated 10/15/19 @ 10:02 by Mirella Gandhi PA-C) Allergic rhinitis (Chronic) Asthma (Chronic) well controlled- rare use of albuterol inhaler Diverticulosis (Chronic) GERD (gastroesophageal reflux disease) (Chronic) well controlled Hyperlipidemia Hypertension (Chronic) IBS (irritable bowel syndrome) (Chronic) Migraine stable Osteoarthritis Exercise / Class Metabolic Activity II 4-5 Yardwork/Stairs/Walk up hill (no chest pain or SOB with one flight of stairs ) Past Family History Family History Father Lung cancer Mother Lung disease Other Asthma Diabetes Heart disease No family history of adverse response to anesthesia Past Surgical History Surgical History History of appendectomy (Chronic) History of (Chronic) History of colonoscopy History of ERCP (Chronic) History of esophagogastroduodenoscopy (EGD) History of exploratory laparotomy (Chronic) X2; back in 1980s required lysis of adhesions History of incisional hernia repair laparoscopic incisional hernia History of tonsillectomy History of tubal ligation (Chronic) Hx of cholecystectomy (Chronic) Past Anesthesia History No Hx of Anesthesia Complications and No Family Hx of Anesthesia Complications History of PONV No Hx of PONV and Hx of Motion Sickness (mild motion sickness with amusement rides ) Social History Smoking Status: Never smoker Do You Dip or Chew Tobacco: No Hx Alcohol Use: No Hx Substance Use: No substance use type: does not use Review of Systems Reflux well controlled with meds. Mild cough since holding vitamins for surgery. Patient denies chest pain, shortness of breath, dyspnea on exertion, wheezing, palpitations. Physical Exam Vital Signs VITALS BP 144/80 P 75 TEMP 98.8 SP02 93% RESP 16 Constitutional no acute distress ENMT Mouth: no TMJ clicking Thyromental Distance: > or= 3.5 Finger Breadths Mallampati Class: II Missing right bottom molar and left top molar Neck neck not thick and neck extension not limited Respiratory normal respiratory effort; no respiratory distress and does not use accessory muscles Auscultation: lungs clear to auscultation bilaterally; no wheezes Cardiovascular Rate/Rhythm: regular rate and regular rhythm Heart Sounds: no murmur Vessels: no carotid bruit Musculoskeletal Spine: no pain with cervical ROM Neurologic moves all extremities No LE edema Psychiatric Orientation: alert Testing Laboratory Results 10/15/19 09:52 10/15/19 09:52 PT 10.3 Seconds (9.0-12.0) 10/15/19 09:52 INR 1.0 (0.9-1.1) 10/15/19 09:52 APTT 26.8 Seconds (21.0-31.0) 10/15/19 09:52 Blood Type O Negative 10/15/19 09:52 Antibody Screen NEGATIVE 10/15/19 09:52 Electrocardiogram Date: 07/08/19 Findings: + NSR @ (62) Chest X-Ray Date: 10/15/18 Findings: + NAD
--- NOTE | 2019-10-15 10:22 | XRay Report ---
XR chest Pre-admission PA/Lat CLINICAL HISTORY: Preoperative chest COMPARISON STUDY: 07/08/2019 FINDINGS: The heart is at the upper limits of normal in size. There is no failure. There is no focal pulmonary consolidation. There are no pleural effusions. Degenerative changes are present within the cervical spine.[ IMPRESSION: No active disease in the chest. ACT 112: Negative or not required by law. Electronically signed by: Donell Simmons M.D. 10/15/2019 10:21 AM
[2019-10-15 10:32] LABS: Basophils # (auto) 0.04 K/uL (0-0.2); Basophils % (auto) 0.2 %; Eosinophils # (auto) 0.35 K/uL (0-0.5); Hematocrit (blood only) 42.5 % (37-47); Hemoglobin 14.2 g/dL (12.0-16.0); Immature Granulocytes # (auto) 0.13 K/uL (0.00-0.02); Immature Granulocytes % (auto) 0.7 %; Lymphocytes # (auto) 2.67 K/uL (1.2-3.4); Lymphocytes % (auto) 15.2 %; Mean Corpuscular Hemoglobin 29.1 pg (25-34); Mean Corpuscular Hgb Conc 33.4 g/dL (32-36); Mean Corpuscular Volume 87.1 fL (80-100); Monocytes # (auto) 1.18 K/uL (0.11-0.59); Monocytes % (auto) 6.7 %; Neutrophils # (auto) 13.18 K/uL (1.4-6.5); Neutrophils % (auto) 75.2 %; Platelet Count 332 K/uL (130-400); RDW Coefficient of Variation 13.4 % (11.5-14.5); RDW Standard Deviation 42.7 fL (36.4-46.3); Red Blood Count 4.88 M/uL (4.2-5.4); White Blood Count 17.55 K/uL (4.8-10.8)
[2019-10-15 10:42] LABS: BUN Creatinine Ratio 20.4 (10-20); Calcium 9.6 mg/dl (8.5-10.1); Creatinine Clr Calc Pharmacy 87.7 ml/min; Est GFR (African American) 99.3; Est GFR (Non-African American) 85.7; Potassium 4.1 mmol/L (3.5-5.1)
[2019-10-15 11:05] LABS: Partial Thromboplastin Time 26.8 Seconds (21.0-31.0); Prothrombin Time 10.3 Seconds (9.0-12.0)
--- NOTE | 2019-11-15 16:07 | History & Physical Report ---
Date of Service November 15, 2019 Assessment & Plan (1) Osteoarthritis of right hip: We will proceed with a right anterior total of arthroplasty. Postoperatively she will be placed on aspirin for DVT prophylaxis. She will be kept overnight in the hospital for postoperative medical management. She plans to use energy physical therapy upon discharge. Present on Admission?: Yes History of Present Illness Chief Complaint: Primary osteoarthritis of the right hip Primary Care Provider: Rafaela Fitch DO Radha is a pleasant 59-year-old female who is been dealing with chronic increasing right hip and groin pain. X-rays, MRI, and physical examination have been diagnostic for advanced osteoarthritis of the right hip. After failing conservative treatment, she has elected to proceed with a right anterior total hip arthroplasty. Allergies Allergy/AdvReac Type Severity Reaction Status Date / Time pantoprazole Allergy Severe RASH ON ARM Verified 10/15/19 08:14 Penicillins Allergy Unknown throat Verified 10/15/19 08:14 swelling Home Medications Home Medications Medication Instructions Recorded Confirmed Type Multivitamin Women 50 Plus 1 tab PO QAM 03/14/19 11/01/19 History Symbicort 2 puff INHALATION QAM 03/14/19 11/01/19 History ascorbic acid (vitamin C) [Vitamin 1 g PO QAM 03/14/19 11/01/19 History C] atorvastatin [Lipitor] 20 mg PO QAM 03/14/19 11/01/19 History cetirizine [Zyrtec] 10 mg PO QAM 03/14/19 11/01/19 History lisinopril [Zestril] 5 mg PO QAM 03/14/19 11/01/19 History Metamucil Fiber Singles 3.4 packet PO QAM 03/19/19 11/01/19 History polyethylene glycol 3350 [Miralax] 17 g PO HS 03/19/19 11/01/19 History Saccharomyces boulardii [Florastor] 250 mg PO BID #20 cap 07/08/19 11/01/19 Rx meloxicam [Mobic] 15 mg PO QAM 07/08/19 11/01/19 History aspirin [Aspirin Low Dose] 81 mg PO Q2D 10/08/19 11/01/19 History famotidine 40 mg PO HS 10/08/19 11/01/19 History omeprazole 40 mg PO QAM 10/08/19 11/01/19 History Past Med/Surg History Medical History Allergic rhinitis (Chronic) Asthma (Chronic) well controlled- rare use of albuterol inhaler Diverticulosis (Chronic) GERD (gastroesophageal reflux disease) (Chronic) well controlled Hyperlipidemia Hypertension (Chronic) IBS (irritable bowel syndrome) (Chronic) Migraine stable Osteoarthritis Surgical History History of appendectomy (Chronic) History of (Chronic) History of colonoscopy History of ERCP (Chronic) History of esophagogastroduodenoscopy (EGD) History of exploratory laparotomy (Chronic) X2; back in 1980s required lysis of adhesions History of incisional hernia repair laparoscopic incisional hernia History of tonsillectomy History of tubal ligation (Chronic) Hx of cholecystectomy (Chronic) Family History Father Lung cancer Mother Lung disease Other Asthma Diabetes Heart disease No family history of adverse response to anesthesia Social History Preferred Language: Ivorian Communication Ability: Effective 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 Beliefs That Will Affect Care: None marital status: Current Living Situation: Spouse Feels Safe at Home: Yes Smoking Status: Never smoker Second Hand Exposure: Yes (hx) ; Hx Alcohol Use: No Hx Substance Use: No Review of Systems All systems reviewed & are unremarkable except as noted in HPI & below Physical Exam Constitutional: WD/WN, vitals as above Eyes: PERRL, conjunctivae normal, anicteric sclerae ENMT: external ear and nose normal, oropharynx normal Neck: trachea midline, no thyromegaly Respiratory: normal respiratory effort Cardiovascular: RRR, no murmur, no edema Gastrointestinal (Abdomen): normal bowel sounds, soft, nontender, no hepatosplenomegaly Musculoskeletal: Physical examination of the right hip reveals decreased range of motion with flexion, internal and external rotation. There is significant groin pain with forced internal rotation of the hip his leg lengths are essentially equal. Psychiatric: A+Ox3, euthymic affect Results & Data Diagnostic Findings Radiographs of the right hip and pelvis demonstrate advanced osteoarthritis with joint space narrowing osteophyte formation and [id number] articulation.
[~2019-11-16 07:43] MED LIST changes: +ACETAMINOPHEN 500 MG TAB PO SCH; +BUPIVACAINE 0.5 % 5 MG/1 ML PF 10ML VIAL ONE; +FAMOTIDINE 20 MG TAB PO SCH; +GABAPENTIN 600 MG DOSE PO SCH; +LIDOCAINE HCL 2% 2 ML VIAL/AMP(20MG/ML) INFIL ONE; -LR 15ML/HR IV SCH; +LR 500ML BOLUS, THEN 15ML/HR IV SCH; +LR 60ML/HR IV SCH; +MIDAZOLAM HCL 1 MG/ML 2ML VIAL ONE; +PROPOFOL IV EMULSION 10 MG/ML 20 ML VIAL IV ONE; +ROPIVACAINE 0.5% HCL/PF 150 MG, BUPIVACAINE 0.5% MPF 30 ML, EPINEPHrine 30MG/30ML (OR U... INSTIL SCH; +TRANEXAMIC ACID 1,000 MG **IV Intra-op IV SCH; +TRANEXAMIC ACID 1,000 MG **IV Pre-op IV SCH; +dexAMETHasone 4 MG TAB PO SCH; +fentaNYL citrate 100 MCG/2 ML VIAL ONE
[2019-11-16] MEDS ORDERED: ORTHO JOINT ANESTHETIC ONE (08:09)
[2019-11-16] MEDS ORDERED: ATROPINE SULFATE 0.1 MG/ML 10ML SYR IV PRN (08:23)
[2019-11-16] MEDS ORDERED: ePHEDrine sulfate 50 MG/ML AMP IV PRN (08:23)
[2019-11-16] MEDS ORDERED: fentaNYL citrate 100 MCG/2 ML VIAL IV PRN (08:23)
[2019-11-16] MEDS ORDERED: ONDANSETRON INJ 2 MG/ML 2 ML VIAL IV PRN ×2 (08:23→11:54)
[2019-11-16] MEDS ORDERED: CLINDAMYCIN 600 MG/54 ML D5W IV ONE (08:32)
--- NOTE | 2019-11-16 08:45 | History & Physical Bridge Note ---
Date of Service November 16, 2019 History & Physical Bridge Note I have examined the patient, reviewed the History & Physical and in the interval since the performance of the History & Physical I have noted the following changes of clinical significance: no changes noted
[2019-11-16] MEDS ORDERED: MIDAZOLAM HCL 1 MG/ML 2ML VIAL ONE ×2 (09:19→10:12)
[2019-11-16] MEDS ORDERED: CLINDAMYCIN 600 MG/54 ML BAG IV SCH (09:30)
[2019-11-16] MEDS ORDERED: KETAMINE HCL INJ 50 MG/ML 10 ML VIAL ONE (10:15)
[2019-11-16] MEDS ORDERED: PROPOFOL IV EMULSION 10 MG/ML 20 ML VIAL IV ONE ×3 (10:21)
--- NOTE | 2019-11-16 10:34 | Operative Report ---
PG Post Operative Report Pre & Post Diagnosis Operation Date: 11/16/19 10:20 Pre-Op Diagnosis: Right Hip Osteoarthritis Post-Op Diagnosis: Right Hip Osteoarthritis I identified the patient and participated in the time-out.: Yes Procedure Operation Date: 11/16/19 10:20 Actual Procedures p Right Anterior Total Hip Arthroplasty--Uncemented(Right) - Maximo Nguyen DO Surgeon Maximo Nguyen DO Land Acquisition Manager Maximo Link PAC Estimated Blood Loss 300 Findings Consistent with Post-Op Diagnosis Specimens Right femoral head Complications none Disposition Disposition: Recovery Room Indications Radha is a pleasant 59-year-old female who is been dealing with chronic increasing right hip and groin pain. X-rays and clinical examination have been diagnostic for primary osteoarthritis of the right hip. After failing conservative treatment, she has elected to proceed with a right anterior total hip arthroplasty. Description of Procedure Implants used I used a Biomet Taperloc total hip arthroplasty system with a size 11 high offset Taperloc stem, a 50 mm G7 cup with a 25mm screw, an E1 polyethylene liner, a 36 mm ceramic head with a +0 neck. Radha arrived at the hospital for the above procedure. She was seen in the preoperative holding area and the operative extremity was identified and signed. She was given a spinal anesthetic, a preoperative antibiotic, and TXA. She was then taken back to the operating room and laid on the table in the supine position. She was given basic sedation. The operative leg was secured to a Puristst leg positioner. The hip was then prepped and draped in sterile fashion. A timeout was done and the patient and the operative extremity was properly identified. An anterior approach was used. Dissection was taken down through the fascia and the tensor muscle belly was retracted laterally and the rectus was retracted medially. The circumflex vessels were identified and ligated. The capsule was then incised and tagged for later repair. The femoral neck was then cut and the femoral head was removed. The acetabulum was exposed. Time was spent doing a complete circumferential labral release. Sequential reaming of the acetabulum up to a size 49 reamer was done. Final reamings were done under fluoroscopy to ensure appropriate version. A Biomet 50 mm G7 cup was then impacted into place. A single 25 mm screw was placed. The E1 polyethylene liner was then snapped into place. Surrounding soft tissues were then injected with 100 cc of an orthopedic pain control cocktail. The proximal femur was then exposed. Sequential broaching up to a size 11 broach was done. Off that broach a size 36 head with a 0 neck was trialed. The hip was reduced and fluoroscopic images showed anatomic alignment of the implants in acceptable length. The broach was removed. The final size 11 high offset Taperloc stem was then impacted into place. A ceramic 36 mm head with a 0 neck was then impacted onto the stem and the hip was reduced. Final fluo roscopic images showed anatomic alignment of the hip. The capsule was then closed with #1 Vicryl suture. A dilute betadyne lavage was then done for 3 minutes. The joint was then irrigated with normal saline solution. The fascia was closed with #1 PDS suture. Skin was closed with 2-0 Vicryl, javier, and a Domenica VAC dressing. She was then transferred to a hospital bed and taken to the post anesthesia care unit in stable condition. She tolerated the procedure well. Maximo Link PA-C, was present for the entire procedure. He was critical for patient positioning, prepping, draping, retraction exposure, wound closure and application of sterile dressing. I attest to the content of the Intraoperative Record and any orders documented therein. Any exceptions are noted below.
--- NOTE | 2019-11-16 11:39 | XRay Report ---
XR hip 1V RT w pelvis CLINICAL HISTORY: IN PACU - A/P PELVIS and LATERAL HIP COMPARISON: 02/21/2012 DISCUSSION: Total right hip arthroplasty in good position. Could contact between prosthetic and underlying bone. Expected postoperative soft tissue change. IMPRESSION: Anatomic alignment posttotal right hip arthroplasty. ACT 112: Negative or not required by law. The above report was generated using voice recognition software. It may contain grammatical, syntax or spelling errors. Electronically signed by: Roque Stinson M.D. 11/16/2019 11:38 AM
[2019-11-16] MEDS ORDERED: bisacodyL 10 MG SUPP PR PRN (11:54)
[2019-11-16] MEDS ORDERED: HYDROmorphone INJ 0.5 MG/0.5 ML SYR IV PRN (11:54)
[2019-11-16] MEDS ORDERED: MAGNESIUM HYDROXIDE SUSP 30 ML UDC PO PRN (11:54)
[2019-11-16] MEDS ORDERED: METOCLOPRAMIDE HCL INJ 5 MG/ML 2 ML VIAL IV PRN (11:54)
[2019-11-16] MEDS ORDERED: OXYCODONE HCL IR 5 MG TAB (IMMEDIATE RELEASE) PO PRN (11:54)
[2019-11-16] MEDS ORDERED: NALOXONE HCL 0.4 MG/1 ML VIAL/CARP IV PRN (11:54)
--- NOTE | 2019-11-16 14:05 | Fluoroscopy Report ---
FL hip RT 1V CLINICAL HISTORY: RIGHT ANTERIOR TOTAL HIP ARTHOPLASTY COMPARISON STUDY: MRI of the right hip October 18, 2019. FLUOROSCOPY TIME: 25 seconds. FLUOROSCOPIC IMAGES: 2 FINDINGS: Fluoroscopy was provided during total right hip arthroplasty. Hardware is intact. There is no fracture by fluoroscopy. Acetabular screw is in place. There are no unexpected radiopaque foreign bodies. IMPRESSION: Fluoroscopy provided during total right hip arthroplasty. ACT 112: Negative or not required by law. Electronically signed by: Jayden Quiroz M.D. 11/16/2019 2:03 PM
[2019-11-16] MEDS: KETOROLAC 30 MG/ML VIAL IV SCH ×2 (15:05→20:27)
[2019-11-16] MEDS: ACETAMINOPHEN 500 MG TAB PO SCH ×2 (15:05→21:32)
--- NOTE | 2019-11-16 15:20 | Anesthesiology Progress Note ---
Date of Service November 16, 2019 Anesthesia Post Procedure Vital Signs Vital Signs: Temp Pulse Pulse Resp BP Pulse Ox 11/16/19 13:43 69 16 104/65 97 11/16/19 12:54 69 16 116/72 95 11/16/19 12:36 75 16 106/65 98 11/16/19 11:56 36.3 C L 83 16 126/77 97 11/16/19 11:46 83 16 120/76 98 11/16/19 11:40 36.4 C L 78 12 120/78 95 11/16/19 11:30 82 16 129/86 98 11/16/19 11:20 89 15 124/67 97 11/16/19 11:10 92 H 10 L 125/80 99 11/16/19 11:02 36.6 C 91 H 20 127/83 97 11/16/19 08:12 36.9 C 94 H 18 152/90 H 95 Pain Intensity Right Hip: Pain Intensity: 4 Transfer of Care Handoff Completed per policy Notes Mental Status: alert / awake / arousable Patient Amnestic to Procedure: Yes Nausea / Vomiting: adequately controlled Pain: adequately controlled Airway Patency, RR, SpO2: stable & adequate BP & HR: stable & adequate Hydration State: stable & adequate Neuraxial Anesthesia: was administered and sensory block is resolving Anesthetic Complications: no major complications apparent and Pt Satisfied with anesthetic care
[2019-11-16] MEDS ORDERED: Nursing to Pharmacy Communication ONE (17:29)
[2019-11-16] MEDS: CLINDAMYCIN 600 MG in DEXTROSE 5% 50 ML IV SCH (17:37)
[2019-11-16] MEDS: SODIUM CHLORIDE 0.9% 1000ML 1,000 ML IV SCH (18:26)
[2019-11-16] MEDS: FAMOTIDINE 40 MG TABLET PO SCH (20:27)
[2019-11-16] MEDS: DOCUSATE SODIUM 100 MG CAP PO SCH (20:27)
[2019-11-16] MEDS: SENNA 8.6 MG TAB PO SCH (20:27)
[2019-11-16] MEDS: SACCHAROMYCES BOULARDII 250 MG CAP PO SCH (20:27)
[2019-11-17] MEDS: CLINDAMYCIN 600 MG in DEXTROSE 5% 50 ML IV SCH (00:35)
[2019-11-17] MEDS: KETOROLAC 30 MG/ML VIAL IV SCH ×4 (02:44→17:54)
[2019-11-17] MEDS: SODIUM CHLORIDE 0.9% 1000ML 1,000 ML IV SCH (05:49)
[2019-11-17] MEDS: ACETAMINOPHEN 500 MG TAB PO SCH ×3 (05:50→22:03)
[2019-11-17 06:13] LABS: Hematocrit (blood only) 36.2 % (37-47); Hemoglobin 12.1 g/dL (12.0-16.0); Mean Corpuscular Hemoglobin 28.6 pg (25-34); Mean Corpuscular Hgb Conc 33.4 g/dL (32-36); Mean Corpuscular Volume 85.6 fL (80-100); Mean Platelet Volume 9.3 fL (7.4-10.4); Platelet Count 291 K/uL (130-400); RDW Coefficient of Variation 12.9 % (11.5-14.5); RDW Standard Deviation 40.1 fL (36.4-46.3); Red Blood Count 4.23 M/uL (4.2-5.4); White Blood Count 24.38 K/uL (4.8-10.8)
[2019-11-17 06:49] LABS: Basophils # (auto) 0.01 K/uL (0-0.2); Immature Granulocytes # (auto) 0.15 K/uL (0.00-0.02); Immature Granulocytes % (auto) 0.6 %; Lymphocytes # (auto) 1.69 K/uL (1.2-3.4); Lymphocytes % (auto) 6.9 %; Monocytes # (auto) 1.83 K/uL (0.11-0.59); Monocytes % (auto) 7.5 %
[2019-11-17 06:54] LABS: BUN Creatinine Ratio 22.9 (10-20); Calcium 8.9 mg/dl (8.5-10.1); Creatinine Clr Calc Pharmacy 86.5 ml/min; Est GFR (African American) 99.3; Est GFR (Non-African American) 85.7; Potassium 4.2 mmol/L (3.5-5.1)
[2019-11-17] MEDS ORDERED: dexAMETHasone 4 MG TAB PO SCH (08:00)
--- NOTE | 2019-11-17 08:19 | Orthopedic Progress Note ---
Date of Service November 17, 2019 Assessment & Plan (1) History of total right hip arthroplasty: Overall she is doing fairly well. She still having some weakness in her leg from the block. She will be seen by physical therapy this morning for ambulation and range of motion exercises. She is on aspirin for DVT prophylaxis. She does not feel ready to go home yet today. She still feels pretty weak. We will keep her in the hospital today and likely discharge her to home tomorrow after physical therapy. Present on Admission?: Yes Subjective Radha was seen and examined at bedside this morning. Overall she is doing fairly well. Her block is still working some. She has some weakness in her right leg. She is just starting to get back range of motion of her ankle. She has no other complaints. Physical Exam Musculoskeletal: On physical examination of the right hip, the Domenica VAC dressing is to suction. Her leg lengths are equal. She has active dorsiflexion plantarflexion of her right ankle. Results & Data ([facility]) Vital Signs (Past 12 Hours) Vital Signs Temp Pulse Resp BP BP Pulse Ox 11/17/19 07:20 36.7 C 69 16 134/77 94 11/17/19 03:22 36.6 C 77 16 143/81 H 109/69 97 11/16/19 23:31 36.7 C 71 16 117/75 94 Laboratory Results H & H 10/15/19 11/17/19 Range/Units 09:52 05:50 Hgb 14.2 12.1 (12.0-16.0) g/dL Hct 42.5 36.2 L (37-47) % Coagulation 10/15/19 Range/Units 09:52 INR 1.0 (0.9-1.1) Diagnostic Findings Postoperative x-rays of the right hip show the prosthesis to be in anatomic alignment without any evidence of fracture, dislocation, or loosening. PG Care Time/CCT Total # of Minutes Spent Total Time Spent with Patient: Total time spent is greater than 50% in coordination of care (as documented) at patient's floor/unit and/or counseling patient: Coding Level of Care Code None Diagnoses History of total right hip arthroplasty Z96.641
[2019-11-17] MEDS: lisinopriL 5 MG TAB PO SCH (08:38)
[2019-11-17] MEDS: OMEPRAZOLE 20 MG CAPCR PO SCH (08:38)
[2019-11-17] MEDS: MULTIVITAMIN TAB PO SCH (08:39)
[2019-11-17] MEDS: DOCUSATE SODIUM 100 MG CAP PO SCH ×2 (08:40→20:15)
[2019-11-17] MEDS: FLUTICASONE/VILANTEROL 200/25MCG 14 PUFFS/INHALER INH SCH (08:40)
[2019-11-17] MEDS: ASPIRIN 81 MG ECTAB PO SCH (08:41)
[2019-11-17] MEDS: ATORVASTATIN 20 MG TAB PO SCH (08:41)
[2019-11-17] MEDS: CETIRIZINE HCL 10 MG TABLET PO SCH (08:42)
[2019-11-17] MEDS: SACCHAROMYCES BOULARDII 250 MG CAP PO SCH ×2 (08:42→20:16)
[2019-11-17] MEDS ORDERED: BUDESONIDE/FORMOTEROL FUMARATE 160/4.5 60 PUFFS/INHALER INH SCH (09:00)
--- NOTE | 2019-11-17 12:51 | Anesthesiology Progress Note ---
Date of Service November 17, 2019 Anesthesia Post Procedure Vital Signs Vital Signs: Temp Pulse Resp BP BP Pulse Ox 11/17/19 07:20 36.7 C 69 16 134/77 94 11/17/19 03:22 36.6 C 77 16 143/81 H 109/69 97 11/16/19 23:31 36.7 C 71 16 117/75 94 11/16/19 15:21 36.5 C 77 16 112/73 95 11/16/19 13:43 69 16 104/65 97 11/16/19 12:54 69 16 116/72 95 Pain Intensity Right Hip: Pain Intensity: 4 Notes Mental Status: alert / awake / arousable and participated in evaluation Nausea / Vomiting: adequately controlled Pain: adequately controlled Airway Patency, RR, SpO2: stable & adequate BP & HR: stable & adequate Hydration State: stable & adequate Neuraxial Anesthesia: was administered and sensory block resolved Anesthetic Complications: no major complications apparent and Pt Satisfied with anesthetic care
[2019-11-17] MEDS: SENNA 8.6 MG TAB PO SCH (20:16)
[2019-11-17] MEDS: FAMOTIDINE 40 MG TABLET PO SCH (20:17)
[2019-11-18] MEDS: KETOROLAC 30 MG/ML VIAL IV SCH ×2 (00:19→06:30)
[2019-11-18] MEDS: ACETAMINOPHEN 500 MG TAB PO SCH (06:30)
[2019-11-18] MEDS: FLUTICASONE/VILANTEROL 200/25MCG 14 PUFFS/INHALER INH SCH (08:09)
[2019-11-18] MEDS: MULTIVITAMIN TAB PO SCH (08:10)
[2019-11-18] MEDS: SACCHAROMYCES BOULARDII 250 MG CAP PO SCH (08:10)
[2019-11-18] MEDS: OMEPRAZOLE 20 MG CAPCR PO SCH (08:11)
[2019-11-18] MEDS: ATORVASTATIN 20 MG TAB PO SCH (08:11)
[2019-11-18] MEDS: DOCUSATE SODIUM 100 MG CAP PO SCH (08:11)
[2019-11-18] MEDS: CETIRIZINE HCL 10 MG TABLET PO SCH (08:11)
[2019-11-18] MEDS: lisinopriL 5 MG TAB PO SCH (08:12)
[2019-11-18] MEDS: ASPIRIN 81 MG ECTAB PO SCH (08:12)
--- NOTE | 2019-11-18 08:54 | Orthopedic Progress Note ---
Date of Service November 18, 2019 Assessment & Plan (1) History of total right hip arthroplasty: Assessment right total hip arthroplasty Plan: Discharge home later on today improved stable condition follow-up in approximately 10 days in the office medication already prescribed Present on Admission?: Yes Subjective Minimal complaints of pain up ambulatory. Denies any chest pain shortness of breath. Denies any hip discomfort currently Review of Systems Review of Systems: No fever sweats chills no confusion Minimal hip discomfort No chest pain shortness of breath or calf tenderness Physical Exam Physical Exam: Vital signs stable alert oriented no leg length discrepancy or pain neurologically intact Results & Data ([facility]) Vital Signs (Past 12 Hours) Vital Signs Temp Pulse Resp BP Pulse Ox 11/18/19 06:34 36.6 C 82 16 152/80 H 96 11/17/19 23:45 36.5 C 71 16 120/72 99 PG Care Time/CCT Total # of Minutes Spent Total Time Spent with Patient: Total time spent is greater than 50% in coordination of care (as documented) at patient's floor/unit and/or counseling patient: Coding Level of Care Code 32063 Subseq Hosp Care Lvl 1 Diagnoses History of total right hip arthroplasty Z96.641
--- NOTE | 2019-11-18 14:46 | Discharge Summary ---
Date of Service November 18, 2019 Admission HPI Per Admitting Provider Radha is a pleasant 59-year-old female who is been dealing with chronic increasing right hip and groin pain. X-rays, MRI, and physical examination have been diagnostic for advanced osteoarthritis of the right hip. After failing conservative treatment, she has elected to proceed with a right anterior total hip arthroplasty. Principal Diagnosis Right total hip arthroplasty Discharge Data Allergies Allergy/AdvReac Type Severity Reaction Status Date / Time pantoprazole Allergy Severe RASH ON ARM Verified 11/16/19 08:20 Penicillins Allergy Unknown throat Verified 11/16/19 08:20 swelling Consultations 11/17/19 08:00 Consult Case Management - Discharge Planning Routine Procedures Performed Operation Date: 11/16/19 10:20 Actual Procedures p Right Anterior Total Hip Arthroplasty--Uncemented(Right) - Maximo Nguyen DO Ordered Studies 11/16/19 07:00 FL fluoroscopy <1hr Routine FL hip RT 1V Routine Hospital Course (1) History of total right hip arthroplasty: On November 16, 2019 Radha arrived at [facility] and underwent a right anterior total hip arthroplasty without complication. She had a spinal anesthetic. Postoperatively she was started on aspirin for DVT prophylaxis and transferred to general with PIC floors. Her hospital course was uneventful. On postop day #1 her H&H was stable and her pain was well controlled. She was able to participate well with physical therapy. She was still having a little bit of weakness in her leg from the nerve block. On postop day #2 she was doing much better. She was feeling stronger and more steady on her feet. She was then discharged to home. She will follow-up with orthopedics in 2 weeks. Total Time Total Time Spent Total Time Spent (In Minutes): 20 Discharge Plan Discharge Items Patient Disposition: Home - Self-Care Reason For Visit: Right Hip Degenerative Joint Disase Discharge Diagnosis: Right total hip arthroplasty Activity: As commented below Non-emergency contact: Surgeon Call non-emergency contact if: your wound has increased redness and your wound has increased drainage Follow-up/Referrals: Rafaela Fitch DO [Primary Care Provider] - Diet: Regular Addtl Attending Provider Instructions: Activity and Therapy Recommendations: * If you are using [facility] then therapy will be provided at your home until they feel you have accomplished all of your goals. * If you are using [facility] then Physical Therapy will be provided until they feel you are ready to start Outpatient Physical Therapy. * If you are not using home therapy then Outpatient Physical Therapy should start about 3-5 days from your day of surgery. Therapy will last about 6-10 weeks * You were shown a series of exercises in the hospital. Do these exercises three times each day including the exercises you were shown in physical therapy. * Get up and walk several times each day.~ For the first four weeks, try not to stand or walk for more than one hour at a time. If you do stand or walk for more than one hour, you will not hurt anything, but your leg will likely swell.~~ * As you feel comfortable, you may change from the walker or crutches to a cane and~then to independent walking. Medications: * Narcotic You will likely be sent home from the hospital with a prescription for the narcotic pain medication that worked best throughout your stay. * Aspirin Most patients will be required to take Aspirin 81mg twice a day for 6 weeks after surgery. This is obtained [id number] and a prescription is not necessary. * Other medications may be prescribed for specific circumstances. If you have any questions, please call the office at . * Resume previous home medications unless otherwise instructed TEDs/Elastic Stockings: The white elastic stockings help limit swelling and prevent blood clots from forming in your legs. The more you wear them, the more they work. Wear them for six weeks. Dressing Care: You will likely have a purple VAC dressing after surgery. This dressing will keep the incision dry and promote early healing. After about 7 days the batteries will wear out and the VAC will lose suction. Simply remove the dressing at that time and throw everything away, including the small suction machine. Then, you may leave the javier open to air or cover them with a dry dressing so they do not rub on your pants. The javier will be removed at your 2 week follow-up appointment. Showering: You may shower immediately with the purple VAC dressing. Let the shower spray hit your opposite side and slowly pat the plastic dry. Do not soak the dressing. After the dressing is removed you may shower normally with the javier exposed. Let soapy water run over the javier and pat them dry. Things To Watch For: * Drainage from the incision site that occurs more than one week after your surgery. * Increased redness at the incision site. * Fever above 102 degrees Fahrenheit. * Unusual chest pain or shortness of breath. * Call [facility] at with any of the above problems Follow-Up Visit: Follow-up with Dr. Nguyen 2-3 weeks after your day of surgery. An appointment was probably scheduled when you signed-up for surgery in the office. If you have any questions call Office Instructions: More detailed instructions as well as Frequently Asked Questions were provided in a folder by our office when you signed-up for surgery. Please review these instructions when you get home. If you have any further questions or concerns, please feel free to call the office at [phone] Pending Studies at Discharge: No Stand-Alone Forms: [facility], Opioid Pain Management, Smoking Cessation Medications and DC Order Prescriptions: New oxycodone 5 mg Tablet 5 mg PO Q4H PRN (Reason: pain) Qty: 30 RF: 0 Continued cetirizine [Zyrtec] 10 mg Tablet 10 mg PO QAM RF: 0 lisinopril [Zestril] 5 mg tablet 5 mg PO QAM RF: 0 budesonide-formoterol [Symbicort] 160-4.5 mcg/actuation HFA aerosol inhaler 2 puff inhalation QAM RF: 0 ascorbic acid (vitamin C) [Vitamin C] 1,000 mg Tablet 1 g PO QAM RF: 0 atorvastatin [Lipitor] 20 mg tablet 20 mg PO QAM RF: 0 Multivitamin Women 50 Plus 8 mg iron-400 mcg-300 mcg Tablet 1 tab PO QAM RF: 0 polyethylene glycol 3350 [Miralax] 17 gram Powder In Packet 17 g PO HS RF: 0 Metamucil Fiber Singles 3.4 gram Powder In Packet 3.4 packet PO QAM RF: 0 meloxicam [Mobic] 15 mg Tablet 15 mg PO QAM RF: 0 Florastor 250 mg capsule 250 mg PO BID Qty: 20 RF: 0 famotidine 40 mg Tablet 40 mg PO HS RF: 0 omeprazole 40 mg Capsule,Delayed Release(Dr/Ec) 40 mg PO QAM RF: 0 Changed aspirin [Aspirin Low Dose] 81 mg Tablet,Delayed Release (Dr/Ec) 81 mg PO BID 42 Days Qty: 0 RF: 0 Discharge Orders: Discharge Order (Routine); Ordered 11/18/19 Ordered By: Giovanny Joyner/Other Patient Handouts: DVT Prevent Admission Data Admit Date/Time: 11/16/19 11:07 Attending Provider: Maximo Nguyen Admit Provider: Maximo Nguyen Primary Care Provider: Rafaela Fitch Other Interventions: Discharge Summary Assessment (RN) Last Done: 11/18/19 10:39 DC Date/Time DO NOT enter until pt leaves facility: 11/18/19 13:15 Coding Level of Care Code D/C Day Management <30 mins Diagnoses History of total right hip arthroplasty Z96.641
== END 2019-11-18 13:15 | disposition home or self-care (01) ==
LOC: ASU 07:43 → 3E 07:43

== ENCOUNTER 2023-03-07 06:03 | Observation (INO) ==
--- NOTE | 2023-02-04 16:18 | PAT Medication Instructions ---
Medication Instructions Date of Service February 04, 2023 Home Medications atorvastatin 20 mg tablet (Lipitor) 20 mg PO QAM budesonide-formoterol HFA 160 mcg-4.5 mcg/actuation aerosol inhaler (Symbicort) 2 puff inhalation BID cetirizine 10 mg tablet (Zyrtec) 10 mg PO QAM multivit with ohdfvlne-onnu-NO-lutein 8 mg iron-400 mcg-300 mcg tablet (Multivitamin Women 50 Plus) 1 tab PO QAM famotidine 40 mg tablet 40 mg PO HS omeprazole 40 mg capsule,delayed release 40 mg PO QAM docusate sodium 100 mg capsule 100 mg PO BID lisinopril 20 mg tablet 20 mg PO QAM lorazepam 0.5 mg tablet 0.5 mg PO Q8 PRN meloxicam 15 mg tablet 15 mg PO UD PRN potassium 95 mg tablet 95 mg PO QAM sertraline 50 mg tablet 75 mg PO QAM albuterol sulfate 90 mcg/actuation aerosol inhaler 2 inh inhalation Q6H PRN ASK your surgeon for instructions meloxicam 15 mg tablet 15 mg PO UD PRN DO NOT take the morning of surgery cetirizine 10 mg tablet (Zyrtec) 10 mg PO QAM multivit with bavomedg-ywsu-AM-lutein 8 mg iron-400 mcg-300 mcg tablet (Multivitamin Women 50 Plus) 1 tab PO QAM docusate sodium 100 mg capsule 100 mg PO BID lisinopril 20 mg tablet 20 mg PO QAM potassium 95 mg tablet 95 mg PO QAM Take morning of surgery With a small sip of water, OTHERWISE NOTHING TO EAT OR DRINK AFTER MIDNIGHT: atorvastatin 20 mg tablet (Lipitor) 20 mg PO QAM budesonide-formoterol HFA 160 mcg-4.5 mcg/actuation aerosol inhaler (Symbicort) 2 puff inhalation BID omeprazole 40 mg capsule,delayed release 40 mg PO QAM lorazepam 0.5 mg tablet 0.5 mg PO Q8 PRN(if needed) sertraline 50 mg tablet 75 mg PO QAM albuterol sulfate 90 mcg/actuation aerosol inhaler 2 inh inhalation Q6H PRN(use if needed; please bring with you to hospital day of surgery if possible) Take evening before surgery budesonide-formoterol HFA 160 mcg-4.5 mcg/actuation aerosol inhaler (Symbicort) 2 puff inhalation BID famotidine 40 mg tablet 40 mg PO HS docusate sodium 100 mg capsule 100 mg PO BID lorazepam 0.5 mg tablet 0.5 mg PO Q8 PRN(if needed) albuterol sulfate 90 mcg/actuation aerosol inhaler 2 inh inhalation Q6H PRN(if needed) Other Notes If you have any questions please call us at [phone] or [phone] or [phone] or [phone]
--- NOTE | 2023-02-15 15:26 | Anesthesiology Consultation ---
Date of Service February 15, 2023 Assessment & Plan (1) Encounter for pre-operative examination: - awaiting PCP response to pre-op optimization note regarding leukocytosis with left shift. Surgeon's office made aware. - leukocytosis, chronic to chart review with only WNL level in 2019. WBC 14 02/02/23, now WBC 15 02/15/23 with left shift. - pt reports/full memory of neuraxial anesthesia for CHRISTO. - Outpatient joint pathway: Patient is not an acceptable candidate for Same Day Joint Program from anesthesia perspective. Patient was advised if has adequate home support in future she can contact [facility] and this can be re-reviewed. Surgeon's office made aware. Patient verbalized understanding, denied questions or concerns. Chart Review Chart Review: Pending: Refer to Additional Notes / Consult section and Patient seen in Pre Admission Testing Teaching & Discussion Pre-Anesthesia Teaching/Discussion Notes: Instructed NPO after midnight before surgery, except medications with 15 cc of water. Medication instructions provided according to the [facility] guidelines. History Surgery Operation Date: 03/07/23 10:40 Proposed Procedures p Right Total Knee Arthroplasty - Maximo Nguyen, Height/Weight Height: 5 ft 2 in Weight: 104.326 kg Allergies Allergy/AdvReac Type Severity Reaction Status Date / Time pantoprazole Allergy Unknown RASH ON ARM Verified 02/04/23 15:31 Penicillins Allergy Unknown throat Verified 02/04/23 15:31 swelling Medications Home Medications Medication Instructions Recorded Confirmed Last Taken atorvastatin 20 mg tablet (Lipitor) 20 mg PO QAM 03/14/19 02/04/23 05/04/20 budesonide-formoterol HFA 160 2 puff inhalation BID 03/14/19 02/04/23 05/04/20 mcg-4.5 mcg/actuation aerosol inhaler (Symbicort) cetirizine 10 mg tablet (Zyrtec) 10 mg PO QAM 03/14/19 02/04/23 05/04/20 multivit with 1 tab PO QAM 03/14/19 02/04/23 05/04/20 cczgllds-bghg-AZ-lutein 8 mg iron-400 mcg-300 mcg tablet (Multivitamin Women 50 Plus) famotidine 40 mg tablet 40 mg PO HS 10/08/19 02/04/23 05/03/20 omeprazole 40 mg capsule,delayed 40 mg PO QAM 10/08/19 02/04/23 05/04/20 release docusate sodium 100 mg capsule 100 mg PO BID 08/15/21 02/04/23 Unknown lisinopril 20 mg tablet 20 mg PO QAM 08/15/21 02/04/23 Unknown lorazepam 0.5 mg tablet 0.5 mg PO Q8 PRN Anxiety 08/15/21 02/04/23 Unknown meloxicam 15 mg tablet 15 mg PO UD PRN Pain 08/15/21 02/04/23 Unknown potassium 95 mg tablet 95 mg PO QAM 08/15/21 02/04/23 Unknown sertraline 50 mg tablet 75 mg PO QAM 08/15/21 02/04/23 Unknown albuterol sulfate 90 mcg/actuation 2 inh inhalation Q6H PRN ASTHMA 02/04/23 02/04/23 Unknown aerosol inhaler lactobacillus combination no.8 3 cell QAM 02/15/23 Unknown billion cell capsule Additional Notes: Pt was advised to NOT take probiotic morning of surgery, this was written on provided medication instructions. She denied additional questions, concerns or additional medications/supplements. Past Medical History Medical History (Updated 02/15/23 @ 15:33 by Anitha Dunn PA-C) Asthma Diverticulosis Elevated WBC count HX PRIOR TO HIP SURGERY IN 2019/WAS RECOVERING FROM BRONCHITIS. CURRENTLY ELEVATED FROM BLOODWORK ON FEB 02 2023. PT DENIES RECENT KNOWN INFECTION OR S/S ILLNESS. GERD (gastroesophageal reflux disease) controlled, stable per pt History of blood transfusion 1985 Hyperlipidemia Hypertension controlled, stable per pt IBS (irritable bowel syndrome) Lung nodules Found on preop CXR, was monitored/stable per lung specialist f/u Per patient, was advised to f/u PRN Migraine Stable Panic attacks Patient denies h/o stroke, seizures, heart attack, heart failure, DM, or blood clots. Exercise / Class Metabolic Activity III < 4 Walking/Shop/Light housework (denies chest discomfort or shortness of breath with usual activities, not routinely ambulating stairs d/t knee pain) Past Family History Family History Father Lung cancer Family history of throat cancer Mother Lung disease Other Asthma Diabetes Heart disease No family history of adverse response to anesthesia Past Surgical History Surgical History History of appendectomy History of History of colonoscopy History of ERCP History of esophagogastroduodenoscopy (EGD) History of exploratory laparotomy x2; 1980s (lysis of adhesions) History of incisional hernia repair laparoscopic incisional hernia History of tonsillectomy History of total right hip arthroplasty Right anterior CHRISTO (11/16/19): SA at L4-5 (x1 attempt) at [facility]. History of tubal ligation Hx of cholecystectomy Past Anesthesia History No Hx of Anesthesia Complications and No Family Hx of Anesthesia Complications History of PONV No Hx of PONV and Hx of Motion Sickness Social History Smoking Status: Never smoker Do You Dip or Chew Tobacco: No Hx Alcohol Use: No Hx Substance Use: No substance use type: does not use Review of Systems Snoring, denies witnessed apneas. Patient denies chest pain, shortness of breath, dyspnea on exertion, fever, chills, cough, wheezing, or palpitations. Physical Exam Vital Signs Vitals BP 139/77 P 81 TEMP 98.5 SP02 96% on RA RESP 17 Physical Full cervical extension range of motion without pain TMD 3.5 finger breadths Mallampati Score 2 Dentition: intact, denies chipped or loose teeth, caps/crowns, implants or bridges Lungs: normal respiratory effort. Good air movement, clear throughout to auscultation, no adventitious breath sounds Cardiac: regular rate and rhythm, no murmurs noted Carotid arteries: negative bruit bilat Lab Results Anesthesia Preop Results Results Anesthesia Widget: WBC 15.47 K/ul (4.8-10.8) H 02/15/23 Hgb 12.1 g/dl (12.0-16.0) 02/15/23 Hct 37.8 % (37.0-47.0) 02/15/23 Plt 319 K/uL (130-400) 02/15/23 PT 11.1 Seconds (9.0-12.0) 02/15/23 PTT 28.9 Seconds (21.0-31.0) 02/15/23 INR 1.0 (0.9-1.1) 02/15/23 Blood Type O Negative 02/15/23 Antibody Screen NEGATIVE 02/15/23 Testing Laboratory Results 02/02/2023 SODIUM: 144 POTASSIUM: 4.9 CHLORIDE: 107 CO2: 25 BUN: 18 CREATININE: 0.9 GLUCOSE: 93 A1c: 5.9% Electrocardiogram Date: 02/15/23 NSR, rate 89 bpm Chest X-Ray Date: 02/15/23 Mild cardiomegaly with no active disease in the chest COVID-19 Risk Screen Screening Information COVID-19 Screen Date: 02/15/23 Exposure 21 Days Family/Household +COVID Last 21 Days: No Exposure 10 Days Any COVID Exposure Last 10 Days: No Symptoms Last 10 Days Experienced COVID Sx Last 10 Days: No + COVID 0-90 Days COVID + in Last 0-90 Days: No
--- NOTE | 2023-03-01 17:52 | History & Physical Report ---
Date of Service March 01, 2023 Assessment & Plan (1) Osteoarthritis of right knee: We will proceed with a right total knee arthroplasty. Postoperatively she will be started on aspirin for DVT prophylaxis and kept overnight in the hospital for postoperative medical management. She plans [facility] upon discharge. History of Present Illness Chief Complaint: Osteoarthritis of the right knee. Primary Care Provider: Rafaela Fitch DO Garcia is a pleasant 62-year-old female who has been dealing with chronic right knee pain. It has been getting worse over the last few years and has been really bad for the past few months. She has had x-rays of her knee and an MRI, which shows subchondral fractures in the medial compartment. She has failed extensive conservative treatment. She has elected proceed with a right total knee arthroplasty. Allergies Allergy/AdvReac Type Severity Reaction Status Date / Time pantoprazole Allergy Unknown RASH ON ARM Verified 02/04/23 15:31 Penicillins Allergy Unknown throat Verified 02/04/23 15:31 swelling Home Medications Medication Instructions Recorded Confirmed Type atorvastatin 20 mg tablet (Lipitor) 20 mg PO QAM 03/14/19 02/04/23 History budesonide-formoterol HFA 160 2 puff inhalation BID 03/14/19 02/04/23 History mcg-4.5 mcg/actuation aerosol inhaler (Symbicort) cetirizine 10 mg tablet (Zyrtec) 10 mg PO QAM 03/14/19 02/04/23 History multivit with 1 tab PO QAM 03/14/19 02/04/23 History bqakgdzc-ozib-NP-lutein 8 mg iron-400 mcg-300 mcg tablet (Multivitamin Women 50 Plus) famotidine 40 mg tablet 40 mg PO HS 10/08/19 02/04/23 History omeprazole 40 mg capsule,delayed 40 mg PO QAM 10/08/19 02/04/23 History release docusate sodium 100 mg capsule 100 mg PO BID 08/15/21 02/04/23 History lisinopril 20 mg tablet 20 mg PO QAM 08/15/21 02/04/23 History lorazepam 0.5 mg tablet 0.5 mg PO Q8 PRN Anxiety 08/15/21 02/04/23 History meloxicam 15 mg tablet 15 mg PO UD PRN Pain 08/15/21 02/04/23 History potassium 95 mg tablet 95 mg PO QAM 08/15/21 02/04/23 History sertraline 50 mg tablet 75 mg PO QAM 08/15/21 02/04/23 History albuterol sulfate 90 mcg/actuation 2 inh inhalation Q6H PRN ASTHMA 02/04/23 02/04/23 History aerosol inhaler lactobacillus combination no.8 3 cell QAM 02/15/23 History billion cell capsule nitrofurantoin 100 mg PO BID 02/28/23 History monohydrate/macrocrystals 100 mg capsule (Macrobid) Past Med/Surg History Medical History Asthma Diverticulosis Elevated WBC count HX PRIOR TO HIP SURGERY IN 2018/WAS RECOVERING FROM BRONCHITIS. CURRENTLY ELEVATED FROM BLOODWORK ON FEB 02 2023. PT DENIES RECENT KNOWN INFECTION OR S/S ILLNESS. GERD (gastroesophageal reflux disease) controlled, stable per pt History of blood transfusion 1985 Hyperlipidemia Hypertension controlled, stable per pt IBS (irritable bowel syndrome) Lung nodules Found on preop CXR, was monitored/stable per lung specialist f/u Per patient, was advised to f/u PRN Migraine Stable Panic attacks Surgical History History of appendectomy History of History of colonoscopy History of ERCP History of esophagogastroduodenoscopy (EGD) History of exploratory laparotomy x2; 1980s (lysis of adhesions) History of incisional hernia repair laparoscopic incisional hernia History of tonsillectomy History of total right hip arthroplasty Right anterior CHRISTO (11/16/19): SA at L4-5 (x1 attempt) at [facility]. History of tubal ligation Hx of cholecystectomy Family History Father Lung cancer Family history of throat cancer Mother Lung disease Other Asthma Diabetes Heart disease No family history of adverse response to anesthesia Social History Smoking Status: Never smoker Second Hand Exposure: Yes (hx); Do You Dip or Chew Tobacco: No; Hx Alcohol Use: No Hx Substance Use: No Preferred Language: Lithuanian Communication Ability: Effective Visual Impairment: Limited Curing Oven Attendant Required: No Beliefs That Will Affect Care: None marital status: Current Living Situation: Spouse Feels Safe at Home: Yes Assistive Devices: Glasses Review of Systems All systems reviewed & are unremarkable except as noted in HPI & below. Physical Exam On physical examination the right knee, there is slight varus deformity. There is tenderness palpation of the distal medial femoral condyle and over the medial joint line.. Constitutional WD/WN, vitals as above Eyes PERRL, conjunctivae normal, anicteric sclerae ENMT external ear and nose normal, oropharynx normal Neck trachea midline, no thyromegaly Respiratory normal respiratory effort, lungs clear to auscultation Cardiovascular RRR, no murmur, no edema Gastrointestinal (Abdomen) normal bowel sounds, soft, nontender, no hepatosplenomegaly Skin no rashes, warm and dry Psychiatric A+Ox3, euthymic affect Results & Data Results & Data Laboratory Results . Diagnostic Findings X-rays of the right knee show advanced osteoarthritis with joint space narrowing, osteophyte formation, and isdv-tk-ypra articulation. PG Care Time/CCT Total # of Minutes Spent Total Time Spent with Patient: Total time spent is greater than 50% in coordination of care (as documented) at patient's floor/unit and/or counseling patient: Coding Level of Care Code None Diagnoses Osteoarthritis of right knee M17.11
[~2023-03-07 06:03] MED LIST changes: -BUPIVACAINE 0.5 % 5 MG/1 ML PF 10ML VIAL ONE; -CEFAZOLIN 2000MG 2,000 MG/15 ML SYR IV SCH; +Ketorolac (*for OR use only*) 30 MG, dexAMETHasone 4 MG, KETAMINE HCL (**OR use only) 1... INFIL SCH; -LIDOCAINE HCL 2% 2 ML VIAL/AMP(20MG/ML) INFIL ONE; -MIDAZOLAM HCL 1 MG/ML 2ML VIAL ONE; -PROPOFOL IV EMULSION 10 MG/ML 20 ML VIAL IV ONE; -ROPIVACAINE 0.5% HCL/PF 150 MG, BUPIVACAINE 0.5% MPF 30 ML, EPINEPHrine 30MG/30ML (OR U... INSTIL SCH; -fentaNYL citrate 100 MCG/2 ML VIAL ONE
[2023-03-07] MEDS ORDERED: ceFAZolin 2000MG 2,000 MG/15 ML SYR IV ONE (06:25)
[2023-03-07] MEDS ORDERED: BUPIVACAINE 0.5 % 5 MG/1 ML PF 10ML VIAL ONE (06:29)
[2023-03-07] MEDS ORDERED: ROPIVACAINE 0.5% 5 MG/ML 30 ML VIAL ONE (06:29)
--- NOTE | 2023-03-07 06:34 | History & Physical Bridge Note ---
Date of Service March 07, 2023 History & Physical Bridge Note I have examined the patient, reviewed the History & Physical and in the interval since the performance of the History & Physical I have noted the following changes of clinical significance: no changes noted
[2023-03-07] MEDS ORDERED: ORTHO JOINT ANESTHETIC ONE (07:07)
[2023-03-07] MEDS ORDERED: ATROPINE SULFATE 0.1 MG/ML 10ML SYR IV PRN (07:10)
[2023-03-07] MEDS ORDERED: ONDANSETRON INJ 2 MG/ML 2 ML VIAL IV PRN ×2 (07:10→10:46)
[2023-03-07] MEDS ORDERED: ePHEDrine sulfate 50 MG/ML AMP IV PRN (07:10)
[2023-03-07] MEDS ORDERED: fentaNYL citrate PF 100 MCG/2 ML VIAL IV PRN (07:10)
[2023-03-07] MEDS ORDERED: PROPOFOL IV EMULSION 10 MG/ML 20 ML VIAL IV ONE ×2 (07:30→07:32)
[2023-03-07] MEDS ORDERED: LIDOCAINE 2% 2 ML VIAL/AMP(20MG/ML) INFIL ONE (07:30)
[2023-03-07] MEDS ORDERED: MIDAZOLAM HCL 1 MG/ML 2ML VIAL ONE (07:31)
[2023-03-07] MEDS ORDERED: fentaNYL citrate PF 100 MCG/2 ML VIAL ONE (07:31)
--- NOTE | 2023-03-07 09:06 | Operative Report ---
PG Post Operative Report Pre & Post Diagnosis Operation Date: 03/07/23 08:00 Pre-Op Diagnosis: Degenerative Joint Disease, Right Knee Post-Op Diagnosis: Degenerative Joint Disease, Right Knee I identified the patient and participated in the time-out.: Yes Procedure Operation Date: 03/07/23 08:00 Actual Procedures p Right Total Knee Arthroplasty, Cemented.(Right) - Maximo Nguyen DO Surgeon Maximo Nguyne DO Hematology Supervisor Maximo Link PA-C Estimated Blood Loss 30 Findings Consistent with Post-Op Diagnosis Specimens Right femoral tibial bone Description of Procedure Implants used: I used a Jossy Persona total knee arthroplasty system with a size 6 narrow femur, D tibia, 28 oval patella, and a size 13 medial congruent polyethylene bearing. All components were cemented in place with Biomet cement. Radha arrived [facility] for the above procedure. She was seen in the preoperative holding area and the operative extremity was identified and signed. She was given a preoperative antibiotic, TXA, a spinal anesthetic and an adductor nerve block. She was taken back to the operating room and laid on the table in supine position. She was given basic sedation. The operative knee was then prepped and draped in sterile fashion. A timeout was done, and the patient and the operative extremity was properly identified. A midline incision was made directly over the patella. Dissection was taken down to the extensor mechanism. A midvastus arthrotomy was used. The medial retinaculum was released and the fat pad was mostly excised. The knee was flexed and the ACL, PCL, and meniscus were removed. A drill was sent down the center of the femoral canal followed by an intramedullary april. Off that april a distal femoral cutting block was placed. 9 mm was resected off the distal femur at 5 of valgus. A posterior referencing AP sizing guide was then placed on the distal femur. The femur measured to be a size 6. 2 drill holes were placed in 3 of external rotation. A 4-in-1 cutting block was then impacted into place. Anterior, posterior, and chamfer cuts were then made. The proximal tibia was then exposed. An external tibial alignment guide was placed. A tibial cut guide was then anchored in place and the proximal tibia was then resected. The posterior aspect of the knee was then opened up and any additional meniscus fragments and osteophytes were removed. The tibia measured to be a size D. The tibial plate was then placed in the appropriate rotation and the tibia was drilled and punched. Trial components were then placed. I used a size 13 medial congruent polyethylene insert. The knee was brought through a full range of motion and felt to be stable. The peg holes for the femoral component were then drilled. The patella was then everted and 9 mm was resected off the posterior aspect of the patella. The patella measured to be a size 28 oval. 3 peg holes were then drilled. A trial patella was placed. The knee was once again brought through a full range of motion and felt to be stable. Trial components were then removed. The surrounding soft tissues were injected with 100 cc of an orthopedic pain control cocktail. All components were then cemented into place with Biomet cement. The final polyethylene insert was then snapped into place. Once cement was dry the tourniquet was deflated. Hemostasis was obtained. A dilute betadyne lavage was then done for 3 minutes. The joint was then irrigated with normal saline solution. The midvastus arthrotomy was then closed with #1 Vicryl suture. The skin was closed with 2-0 Vicryl, 3-0V lock suture, and javier. A soft compressive dressing was placed. She was then transferred to a hospital bed and taken to the postanesthesia care unit in stable condition. She tolerated the procedure well. Maximo Link PA-C, was present for the entire procedure. He was critical for patient positioning, prepping, draping, retraction exposure, wound closure and application of sterile dressing. I attest to the content of the Intraoperative Record and any orders documented therein. Any exceptions are noted below.
--- NOTE | 2023-03-07 10:04 | XRay Report ---
XR knee RT 1 or 2V routine CLINICAL HISTORY: Postoperative evaluation. COMPARISON: Right knee radiographs January 04, 2023. FINDINGS: Alignment of the total right knee arthroplasty is anatomic. There is no periprosthetic fra cture or unexpected radiopaque foreign body. There are skin javier. IMPRESSION: Expected findings following total right knee arthroplasty. ACT 112: Negative or not required by law. Electronically signed by: Jayden Quiroz M.D. 03/07/2023 10:03 AM
[2023-03-07] MEDS ORDERED: HYDROmorphone INJ 0.5 MG/0.5 ML SYR IV PRN (10:46)
[2023-03-07] MEDS ORDERED: MAGNESIUM HYDROXIDE SUSP 30 ML UDC PO PRN (10:46)
[2023-03-07] MEDS ORDERED: LORazepam 0.5 MG TAB PO PRN (10:46)
[2023-03-07] MEDS ORDERED: METOCLOPRAMIDE HCL INJ 5 MG/ML 2 ML VIAL IV PRN (10:46)
[2023-03-07] MEDS ORDERED: bisacodyL 10 MG SUPP PR PRN (10:46)
[2023-03-07] MEDS ORDERED: ALBUTEROL HFA 8 GM INHALER INH PRN (10:46)
[2023-03-07] MEDS ORDERED: NALOXONE HCL 0.4 MG/1 ML VIAL/CARP IV PRN (10:46)
[2023-03-07] MEDS: SODIUM CHLORIDE 0.9% 1000ML 1,000 ML IV SCH ×2 (11:01→20:13)
[2023-03-07] MEDS: KETOROLAC 30 MG/ML VIAL IV SCH ×4 (11:59→23:01)
--- NOTE | 2023-03-07 12:50 | Anesthesiology Progress Note ---
Date of Service March 07, 2023 Anesthesia Post Procedure Vital Signs Vital Signs: Temp Pulse Pulse Resp BP BP Pulse Ox 03/07/23 11:15 97.7 F 96 H 16 145/72 H 94 03/07/23 11:40 97.9 F 83 14 123/69 03/07/23 10:35 72 15 109/56 L 96 03/07/23 10:25 97.7 F 70 17 109/57 L 94 03/07/23 10:15 69 18 90/58 L 94 03/07/23 10:05 68 19 94/48 L 94 03/07/23 09:55 79 17 104/58 L 93 03/07/23 09:45 78 18 123/71 97 03/07/23 09:35 88 16 112/62 95 03/07/23 09:27 97.5 F L 94 H 16 108/62 96 03/07/23 06:39 98.4 F 86 18 147/85 H 95 O2 Del Method O2 Flow Rate 03/07/23 11:15 Nasal Cannula 1 03/07/23 11:40 Nasal Cannula 1 03/07/23 10:35 Nasal Cannula 3 03/07/23 10:25 Nasal Cannula 3 03/07/23 10:15 Nasal Cannula 3 03/07/23 10:05 Nasal Cannula 3 03/07/23 09:55 Nasal Cannula 3 03/07/23 09:45 Nasal Cannula 3 03/07/23 09:35 Nasal Cannula 3 03/07/23 09:27 Nasal Cannula 3 03/07/23 06:39 Room Air Transfer of Care Handoff Completed per policy Notes Mental Status: alert / awake / arousable and participated in evaluation Patient Amnestic to Procedure: Yes Nausea / Vomiting: adequately controlled Pain: adequately controlled Airway Patency, RR, SpO2: stable & adequate BP & HR: stable & adequate Hydration State: stable & adequate Neuraxial Anesthesia: was administered and sensory block is resolving Anesthetic Complications: no major complications apparent and Pt Satisfied with anesthetic care
[2023-03-07] MEDS: ACETAMINOPHEN 500 MG TAB PO SCH ×2 (14:22→22:55)
[2023-03-07] MEDS: FLUTICASONE/VILANTEROL 200/25MCG 14 PUFFS/INHALER INH SCH (14:24)
[2023-03-07] MEDS: ceFAZolin 2000MG 2,000 MG/15 ML SYR IV SCH ×2 (15:35→22:55)
[2023-03-07] MEDS: oxyCODONE HCL IR 5 MG TAB (IMMEDIATE RELEASE) PO PRN (17:48)
[2023-03-07] MEDS: DOCUSATE SODIUM 100 MG CAP PO SCH (20:13)
[2023-03-07] MEDS: ASPIRIN 81 MG ECTAB PO SCH (20:13)
[2023-03-07] MEDS ORDERED: BUDESONIDE/FORMOTEROL FUMARATE 160/4.5 60 PUFFS/INHALER INH SCH (21:00)
[2023-03-07] MEDS ORDERED: SENNA 8.6 MG TAB PO SCH (21:00)
[2023-03-07] MEDS: ALLERGY Noted to ORDERED Medication SCH ×2 (23:37→23:38)
[2023-03-08] MEDS: ACETAMINOPHEN 500 MG TAB PO SCH (06:09)
[2023-03-08] MEDS: KETOROLAC 30 MG/ML VIAL IV SCH (06:09)
--- NOTE | 2023-03-08 07:21 | Orthopedic Progress Note ---
Date of Service March 08, 2023 Assessment & Plan (1) Status post right knee replacement: Overall she is doing very well. She is not having much pain in her right knee. She will be seen by physical therapy today for ambulation and range of motion exercises. She is on aspirin for DVT prophylaxis. The nursing staff can change her dressing after physical therapy today. She can be discharged home later today. She will follow-up with orthopedics in 2 weeks. Woody Garcia was seen and examined at bedside this morning. Overall she is doing very well. She is not having much pain in the right knee. She has been up and ambulating to the bathroom. She has no complaints.. Review of Systems All systems reviewed & are unremarkable except as noted in HPI & below. Physical Exam On physical examination of the right knee, the dressing is clean and dry. Her leg is out full extension. She has active dorsiflexion plantarflexion of the right ankle.. Results & Data Results & Data Laboratory Results . Diagnostic Findings Postoperative x-rays of the right knee show the prosthesis to be in anatomic alignment without any evidence of fracture, desiccation, or loosening.. PG Care Time/CCT Total # of Minutes Spent Total Time Spent with Patient: Total time spent is greater than 50% in coordination of care (as documented) at patient's floor/unit and/or counseling patient: Coding Level of Care Code 15036 Post Operative Follow-Up Diagnoses Status post right knee replacement Z96.651
--- NOTE | 2023-03-08 07:22 | Discharge Summary ---
Date of Service March 08, 2023 Admission HPI (Per Admitting) Radha is a pleasant 62-year-old female who has been dealing with chronic right knee pain. It has been getting worse over the last few years and has been really bad for the past few months. She has had x-rays of her knee and an MRI, which shows subchondral fractures in the medial compartment. She has failed extensive conservative treatment. She has elected proceed with a right total knee arthroplasty. Admission Exam (Per Admitting) On physical examination the right knee, there is slight varus deformity. There is tenderness palpation of the distal medial femoral condyle and over the medial joint line.. Principal Diagnosis Same as "Discharge Diagnosis" noted below under Discharge Instructions. Discharge Exam On physical examination of the right knee, the dressing is clean and dry. Her leg is out full extension. She has active dorsiflexion plantarflexion of the right ankle.. Discharge Data Procedures Performed Operation Date: 03/07/23 08:00 Actual Procedures p Right Total Knee Arthroplasty, Cemented.(Right) - Maximo Nguyen DO Ordered Studies 03/07/23 05:00 US - OR guided needle placemen Routine Hospital Course (1) Status post right knee replacement: On March 07, 2023 Radha arrived at [facility] and underwent a right knee replacement without complication. She had a spinal anesthetic. Postoperatively she was started on aspirin for DVT prophylaxis and transferred to the general orthopedic floors. Her hospital course was uneventful. On postop day #1, her vital signs were stable and her pain was well controlled. She was able to participate well with physical therapy doing ambulation and range of motion exercises. She was then discharged home. She will follow-up with orthopedics in 2 weeks. PG Care Time/CCT Total # of Minutes Spent Total Time Spent with Patient: Total time spent is greater than 50% in coordination of care (as documented) at patient's floor/unit and/or counseling patient: Discharge Plan Discharge Items Patient Disposition: Home - Home Health Services Reason For Visit: DJD Right Knee Discharge Diagnosis: Right knee replacement Activity: As commented below Non-emergency contact: Surgeon Call non-emergency contact if: your wound has increased redness and your wound has increased drainage Follow-up/Referrals: Rafaela Fitch DO [Outside Practitioners] - Diet: Regular Addtl Attending Provider Instructions: Activity and Therapy Recommendations: * If you are using [facility] then therapy will be provided at your home until they feel you have accomplished all of your goals. * If you are using [facility] then Physical Therapy will be provided until they feel you are ready to start Outpatient Physical Therapy. * If you are not using home therapy then Outpatient Physical Therapy should start about 3-5 days from your day of surgery. Therapy will last about 6-10 weeks * It is important not to put a pillow under your knee when you are relaxing or sleeping. It is just as important to make sure you are getting your knee perfectly straight as it is to regain your knee bend. * You were shown a series of exercises in the hospital. Do these exercises three times each day including the exercises you were shown in physical therapy. * Get up and walk several times each day. For the first four weeks, try not to stand or walk for more than one hour at a time. If you do stand or walk for more than one hour, you will not hurt anything, but your leg will likely swell. * As you feel comfortable, you may change from the walker or crutches to a cane and then to independent walking. Medications: * Narcotic You will likely be sent home from the hospital with a prescription for the narcotic pain medication that worked best throughout your stay. * Aspirin Most patients will be required to take Aspirin 81mg twice a day for 6 weeks after surgery. This is obtained [id number] and a prescription is not necessary. * Other medications may be prescribed for specific circumstances. If you have any questions, please call the office at . * Resume previous home medications unless otherwise instructed TEDs/Elastic Stockings: The white elastic stockings help limit swelling and prevent blood clots from forming in your legs.~ The more you wear them, the more they work. Wear them for six weeks. Dressing Care: The dressing can be changed after physical therapy on postop day #1. Daily dry dressing changes for a few days, especially if the incision is still draining some. If the incision is not draining then you may leave the javier open to air. If there is a little bit of drainage or if the javier are getting stuck on your clothing then cover the incision with a dry dressing. The javier will be removed at your 2 week follow-up appointment. Showering: You may shower 5 days from the day of surgery as long as the incision is no longer draining. You may shower with the javier exposed. Let soapy water run over the javier and pat them dry. Do not scrub or soak the incision. Things To Watch For: * Drainage from the incision site that occurs more than one week after your surgery. * Increased redness at the incision site. * Fever above 102 degrees Fahrenheit. * Unusual chest pain or shortness of breath. * Call [facility] at with any of the above problems Follow-Up Visit: Follow-up with Dr. Nguyen's PA (Maximo Link) 2-3 weeks after your day of surgery. He will remove your javier and answer any questions. If you have any additional questions or concerns, Dr Nguyen is usually in the office at the same time and will be available An appointment was probably scheduled when you signed-up for surgery in the office. If you have any questions call Office Instructions: More detailed instructions as well as Frequently Asked Questions were provided in a folder by our office when you signed-up for surgery. Please review these instructions when you get home. If you have any further questions or concerns, please feel free to call the office at [phone] Pending Studies at Discharge: No Stand-Alone Forms: [facility], Smoking Cessation Medications and DC Order Prescriptions: New aspirin 81 mg Tablet,Delayed Release (Dr/Ec) 81 mg PO BID 42 Days Qty: 84 0RF oxycodone-acetaminophen 5-325 mg tablet 1 tab PO Q6H PRN (Reason: pain) Qty: 30 0RF Continued cetirizine [Zyrtec] 10 mg Tablet 10 mg PO QAM budesonide-formoterol [Symbicort] 160-4.5 mcg/actuation HFA aerosol inhaler 2 puff inhalation BID atorvastatin [Lipitor] 20 mg tablet 20 mg PO QAM Multivitamin Women 50 Plus 8 mg iron-400 mcg-300 mcg Tablet 1 tab PO QAM famotidine [Pepcid] 40 mg Tablet 40 mg PO HS omeprazole 40 mg Capsule,Delayed Release(Dr/Ec) 40 mg PO QAM albuterol sulfate 90 mcg/actuation HFA aerosol inhaler 2 inh inhalation Q6H PRN (Reason: ASTHMA) Adult Probiotic 3 billion cell Capsule 3 cell PO QAM sertraline [Zoloft] 50 mg tablet 75 mg PO QAM lisinopril 20 mg tablet 20 mg PO QAM lorazepam [Ativan] 0.5 mg tablet 0.5 mg PO Q8 PRN (Reason: Anxiety) Patient Comments: HAVEN'T TAKEN FOR AWHILE meloxicam 15 mg tablet 15 mg PO UD PRN (Reason: Pain) Patient Comments: CURRENTLY USING DAILY IN THE MORNING. potassium 95 mg Tablet 95 mg PO QAM docusate sodium [Colace] 100 mg Capsule 100 mg PO BID PRN (Reason: Constipation) Admission Data Admit Date/Time: 03/07/23 09:30 Attending Provider: Maximo Nguyen Admit Provider: Maximo Nguyen Primary Care Provider: Faina Alvarez
[2023-03-08] MEDS ORDERED: dexAMETHasone 4 MG TAB PO SCH (08:00)
[2023-03-08] MEDS: oxyCODONE HCL IR 5 MG TAB (IMMEDIATE RELEASE) PO PRN (08:09)
[2023-03-08] MEDS: ASPIRIN 81 MG ECTAB PO SCH (08:10)
[2023-03-08] MEDS: DOCUSATE SODIUM 100 MG CAP PO SCH (08:10)
[2023-03-08] MEDS: FLUTICASONE/VILANTEROL 200/25MCG 14 PUFFS/INHALER INH SCH (08:11)
[2023-03-08] MEDS ORDERED: SERTRALINE HCL 50 MG TABLET PO SCH (09:00)
[2023-03-08] MEDS ORDERED: ATORVASTATIN 20 MG TAB PO SCH (09:00)
[2023-03-08] MEDS ORDERED: CETIRIZINE HCL 10 MG TABLET PO SCH (09:00)
[2023-03-08] MEDS ORDERED: lisinopril 20 MG TAB PO SCH (09:00)
[2023-03-08] MEDS ORDERED: MULTIVITAMIN TAB PO SCH (09:00)
[2023-03-08] MEDS ORDERED: NON-FORMULARY MEDICATION (Potassium 95 mg Tablet) PO SCH (09:00)
== END 2023-03-08 11:29 | disposition home health service (06) ==
LOC: ASU 06:03 → 3E 06:03

== ENCOUNTER 2025-05-14 18:11 | Inpatient (IN) ==
[2025-05-14 18:46] LABS: Hematocrit (blood only) 40.4 % (37.0-47.0); Hemoglobin 13.2 g/dl (12.0-16.0); Mean Corpuscular Hemoglobin 27.7 pg (25.0-34.0); Mean Corpuscular Volume 84.7 fL (80.0-100.0); Platelet Count 286 K/uL (130-400); RDW Standard Deviation 43.5 fL (36.4-46.3); Red Blood Count 4.77 M/uL (4.20-5.40); White Blood Count 29.08 K/ul (4.8-10.8)
[2025-05-14 19:01] LABS: Immature Granulocytes # (auto) 0.84 K/uL (0.01-0.20); Immature Granulocytes % (auto) 2.9 %
[2025-05-14 19:09] LABS: Alanine Aminotransferase 43.0 U/L (7-52); Albumin Globulin Ratio 0.9 (0.9-2); Alkaline Phosphatase 235.0 U/L (34-104); Anion Gap 9.0 (3-11); Bilirubin,Total 1.1 mg/dl (0.2-1.0); Blood Urea Nitrogen 12.0 mg/dl (6-23); Calcium 9.1 mg/dl (8.6-10.3); Carbon Dioxide 28.0 mmol/L (21-32); Chloride 101.0 mmol/L (98-107); Creatinine Clr Calc Pharmacy 105.4 ml/min; Globulin 4.0 gm/dl (2.5-4.0); Glucose 169.0 mg/dl (70-99(Fasting)); Potassium 3.7 mmol/L (3.5-5.1); Sodium 138.0 mmol/L (136-145); Total Protein 7.5 gm/dl (6.0-8.3)
[2025-05-14 19:22] LABS: INR 1.1 (0.9-1.1); Partial Thromboplastin Time 30 Seconds (21-31); Prothrombin Time 11.9 Seconds (9.0-12.0)
--- NOTE | 2025-05-14 19:39 | Emergency Department Note ---
Impression & Plan Acute hypoxic respiratory failure, Asthma exacerbation ED Provider Note NAME: DEVON VALENCIA AGE: 65 SEX: F : 1960 ARRIVES VIA: Walk-In INFORMANT: Patient, ED PROVIDER(S): Kyrie Fine MD CHIEF COMPLAINT: Shortness of breath MEDICAL DECISION MAKING: Patient with known history of asthma presents due to concern for worsening shortness of breath that began on Tuesday and is progressively worsened. The patient was seen in urgent care and referred here. The patient was noted to be in the 70s on room air. IV was established and blood work was obtained. The patient was ordered DuoNeb treatments BNP as the patient does take Lasix and does have some very mild pretibial edema. Chest x-ray also ordered. The patient was also ordered methylprednisolone. Patient's white counts of 29,000 the patient was ordered IV Rocephin and p.o. azithromycin. Kidney function is unremarkable. Initial troponin of 31 with a BNP of 107. Nasal MRSA screen negative. Pro-Edmundo is 0.58. Repeat troponin is 17.5. The patient denies any chest pains. No signs of obvious ischemia on EKG. Chest x-ray shows possible congestive changes. Will still treat symptomatically for possible pneumonia with asthma exacerbation. Given the patient's oxygen requirement I did speak alkalized with Dr. Pineda and the patient was admitted to medicine service. Of note there was a CT of the chest that was ordered by the inpatient service which did not show pneumonia. The patient was already being treated with Rocephin and azithromycin. Patient did not receive a 30 cc/kg bolus in light of the patient's possible pulmonary edema noted on initial chest x-ray. Critical Care: I have personally spent 61 minutes of critical care time in direct management of this patient. This includes bedside care, interpretation of diagnostic studies, and testing, discussion with consultants, patient, and family members, and other require inpatient management activities. This 61 minutes is in excess of all separately billable procedures. Discussion w/ other healthcare providers: Dr. Pineda inpatient medicine service Prior /Outside records reviewed: none Differential diagnosis: Reactive airway disease, pneumonia, pneumothorax, COPD, CHF, ACS, pulmonary embolism, musculoskeletal, GERD as well as other pathologies were considered. Diagnostics, as interpreted by me: ECG: Normal sinus rhythm, rate of 99, normal intervals, normal axis no ST elevations. Cardiac monitoring: An order was placed for continuous cardiac monitoring. The monitor shows a rate of 102 with tachycardic and regular rhythm. Patient was placed on pulse oximetry Medical decision rules: None Imaging studies: I informally interpreted the patient's chest x-ray does not show obvious pneumothorax with formal report to follow. HPI: [Patient presents due to concern for worsening shortness of breath. Patient reports that she has had productive cough but she is not able to expectorate it but is able to get it up into the back of her throat subsequently swallows it. The patient states that her symptoms began on Tuesday reportedly was seen as an outpatient on Tuesday was placed on a Z-Atif but without relief. Patient does have a history of asthma and has been using her inhalers but without improvement in symptoms. The patient is complaining of some shortness of breath. No falls or trauma. She does take Lasix but no reported prior history of heart disease per patient. No active chest pains. Patient denies any falls or trauma. No history of DVT or PE and no recent surgeries procedures or hospitalizations and no recent long car plane travel. Patient reportedly was 70% when she arrived today and was placed on supplemental nasal cannula. The patient does not wear oxygen at home. PAST MEDICAL HISTORY: See Below PAST SURGICAL HISTORY: See Below SOCIAL HISTORY: See Below HOME MEDICATIONS: See Below ALLERGIES: See Below VITALS: See Below PHYSICAL EXAMINATION: GENERAL: NAD, non-toxic. Wearing glasses, nasal cannula in place. EYE EXAM: Normal conjunctiva. PERRL, no anisocoria and EOM's grossly intact w/o pain. OROPHARYNX: Moist mucus membranes, grossly normal dentition. NECK: Trachea midline, no stridor. LUNGS: Wheezes throughout. Normal chest wall mechanics. HEART: NSR, no MRG. ABDOMEN: Abdomen soft, non-tender, no masses, no rebound or guarding. BACK: No CVA TTP. SKIN: No rashes and no bruising. UPPER EXTREMITIES: Upper extremities are grossly normal. LOWER EXTREMITIES: Grossly normal, trace pretibial edema without calf pain or erythema no obvious asymmetry negative Homans' sign bilaterally. NEURO EXAM: Awake and alert, follows commands, no obvious facial asymmetry, normal speech, moves all 4 extremities. Past Med/Surg History Problem List (Updated 05/17/25 @ 14:39 by Kyrie Fine MD) Pleural effusion Multifocal pneumonia Asthma exacerbation (Acute) Acute hypoxic respiratory failure (Acute) Asthma (Chronic) Medical History Depression HLD (hyperlipidemia) COVID-19 Cough Mediastinal adenopathy Abnormal CT scan of lung DVT prophylaxis Encounter for pre-operative examination Incisional hernia DVT prophylaxis Ventral hernia Allergic rhinitis Abdominal pain Abdominal pain History of blood transfusion 1986 Lung nodules Found on preop CXR, was monitored/stable per lung specialist f/u Per patient, was advised to f/u PRN Elevated WBC count HX PRIOR TO HIP SURGERY IN 2019/WAS RECOVERING FROM BRONCHITIS. CURRENTLY ELEVATED FROM BLOODWORK ON FEB 02 2023. PT DENIES RECENT KNOWN INFECTION OR S/S ILLNESS. Panic attacks Migraine Stable Hyperlipidemia IBS (irritable bowel syndrome) GERD (gastroesophageal reflux disease) controlled, stable per pt Diverticulosis Asthma Hypertension controlled, stable per pt Surgical History H/O: hysterectomy Status post right knee replacement (~02/2023) History of total right hip arthroplasty Right anterior CHRISTO (11/16/19): SA at L4-5 (x1 attempt) at [facility], [place]. History of esophagogastroduodenoscopy (EGD) History of colonoscopy History of tonsillectomy History of incisional hernia repair laparoscopic incisional hernia History of appendectomy History of History of tubal ligation History of exploratory laparotomy x2; 1980s (lysis of adhesions) History of ERCP Hx of cholecystectomy Family History Father Lung cancer Family history of throat cancer Mother Lung disease Other Asthma Diabetes Heart disease No family history of adverse response to anesthesia Social History Smoking Status: Never smoker Second Hand Exposure: No; Do You Dip or Chew Tobacco: No; Tobacco Cessation Education Requested by Patient: No Hx Alcohol Use: No Hx Substance Use: No Preferred Language: Citizen Of [place] Communication Ability: Effective Visual Impairment: [employer] Director Required: No Beliefs That Will Affect Care: None Current Living Situation: Spouse Other Information That Helps Us Care for You: No Feels Safe at Home: Yes Safety Concerns: Feels Safe At This Time Assistive Devices: None Allergies Allergies Allergy/AdvReac Type Severity Reaction Status Date / Time pantoprazole Allergy Unknown RASH ON ARM Verified 03/07/23 06:33 Penicillins Allergy Unknown throat Verified 03/07/23 06:33 swelling Home Meds Home Medications Medication Instructions Recorded Confirmed atorvastatin 20 mg tablet (Lipitor) 20 mg PO QAM 03/14/19 05/14/25 budesonide-formoterol HFA 160 2 puff inhalation BID 03/14/19 05/14/25 mcg-4.5 mcg/actuation aerosol inhaler (Symbicort) cetirizine 10 mg tablet (Zyrtec) 10 mg PO QAM 03/14/19 05/14/25 iswnbgrj-[id number]-ekbd 8 mg-folic 400 1 tab PO QAM 03/14/19 05/14/25 mcg-K 50 mcg-lutein 300 mcg tablet (Multivitamin Women 50 Plus) famotidine 40 mg tablet (Pepcid) 40 mg PO HS 10/08/19 05/14/25 omeprazole 40 mg capsule,delayed 40 mg PO QAM 10/08/19 05/14/25 release sertraline 50 mg tablet (Zoloft) 100 mg PO QAM 08/15/21 05/14/25 albuterol sulfate 90 mcg/actuation 2 inh inhalation Q6H PRN ASTHMA 02/04/23 05/14/25 aerosol inhaler lactobacillus combination no.8 3 3 cell PO QAM 02/15/23 05/14/25 billion cell capsule amlodipine 5 mg tablet 5 mg PO DAILY 05/14/25 05/14/25 docusate sodium 100 mg capsule 100 mg PO BID 05/14/25 05/14/25 furosemide 20 mg tablet 20 mg PO DAILY 05/14/25 05/14/25 Previous Rx's Medication Instructions Recorded epinephrine 0.3 mg/0.3 mL 0.3 mg (0.3 mL) IM DIRECTED PRN 12/15/23 injection, auto-injector (EpiPen anaphylaxis #2 ea 2-Atif) Results & Data (ED) Vital Signs Vital Signs - 24 hr 05/14/25 18:16 05/14/25 18:18 05/14/25 19:31 Temperature 37.3 C Temperature Source Oral Pulse Rate 100 H 96 H Respiratory Rate 20 Blood Pressure 149/78 H Blood Pressure Mean 101 Pulse Oximetry 74 L 93 Oxygen Delivery Method Room Air Nasal Cannula Oxygen Flow Rate 4 Sepsis Recent Fever Within 48 Hours Yes Sepsis New/Unexplained Change in Mental Status N/A Sepsis Action Taken by Nursing No Action Required Home Medications Current Medication List: was personally reviewed by me Laboratory Data Attestation: I reviewed the patient's lab results. 05/17/25 09:48 05/17/25 09:48 Lab Results 05/14/25 05/14/25 05/14/25 Range/Units 18:28 20:10 20:14 WBC 29.08 H (4.8-10.8) K/ul RBC 4.77 (4.20-5.40) M/uL Hgb 13.2 (12.0-16.0) g/dl Hct 40.4 (37.0-47.0) % MCV 84.7 (80.0-100.0) fL MCH 27.7 (25.0-34.0) pg MCHC 32.7 (32.0-36.0) g/dL RDW Std Deviation 43.5 (36.4-46.3) fL RDW Coeff of Michael 14.0 (11.5-14.5) % Plt Count 286 (130-400) K/uL MPV 9.2 L (9.4-12.4) fL Immature Gran % (Auto) 2.9 % Neut % (Auto) 84.9 % Lymph % (Auto) 5.4 % Turner % (Auto) 6.1 % Eos % (Auto) 0.2 % Baso % (Auto) 0.5 % Neut # (Auto) 24.70 H (1.40-6.50) K/uL Lymph # (Auto) 1.58 (1.20-3.40) K/uL Turner # (Auto) 1.77 H (0.11-0.59) K/uL Eos # (Auto) 0.05 (0.00-0.50) K/uL Baso # (Auto) 0.14 (0.00-0.20) K/uL Immature Gran # (Auto) 0.84 H (0.01-0.20) K/uL PT 11.9 (9.0-12.0) Seconds INR 1.1 (0.9-1.1) APTT 30 (21-31) Seconds PTT Ratio 1.1 Sodium 138 (136-145) mmol/L Potassium 3.7 (3.5-5.1) mmol/L Chloride 101 (98-107) mmol/L Carbon Dioxide 28 (21-32) mmol/L Anion Gap 9 (3-11) BUN 12 (6-23) mg/dl Creatinine 0.65 (0.6-1.2) mg/dl Est Cr Clr Drug Dosing 105.4 ml/min eGFR 98.87 BUN/Creatinine Ratio 18.5 (10-20) Glucose 169 H (70-99(Fasting)) mg/dl Calcium 9.1 (8.6-10.3) mg/dl Magnesium (1.7-2.4) mg/dl Total Bilirubin 1.1 H (0.2-1.0) mg/dl AST 29 (13-39) U/L ALT 43 (7-52) U/L Alkaline Phosphatase 235 H (34-104) U/L Troponin I High Sens 31.3 H (0-14) pg/ml B-Natriuretic Peptide 107 H (0-100) pg/ml Total Protein 7.5 (6.0-8.3) gm/dl Albumin 3.5 (3.4-5.0) gm/dl Globulin 4.0 (2.5-4.0) gm/dl Albumin/Globulin Ratio 0.9 (0.9-2) Procalcitonin 0.58 H (0-0.5) ng/ml Nasal Screen MRSA (PCR) Negative (Negative) 05/14/25 Range/Units 20:15 WBC (4.8-10.8) K/ul RBC (4.20-5.40) M/uL Hgb (12.0-16.0) g/dl Hct (37.0-47.0) % MCV (80.0-100.0) fL MCH (25.0-34.0) pg MCHC (32.0-36.0) g/dL RDW Std Deviation (36.4-46.3) fL RDW Coeff of Michael (11.5-14.5) % Plt Count (130-400) K/uL MPV (9.4-12.4) fL Immature Gran % (Auto) % Neut % (Auto) % Lymph % (Auto) % Turner % (Auto) % Eos % (Auto) % Baso % (Auto) % Neut # (Auto) (1.40-6.50) K/uL Lymph # (Auto) (1.20-3.40) K/uL Turner # (Auto) (0.11-0.59) K/uL Eos # (Auto) (0.00-0.50) K/uL Baso # (Auto) (0.00-0.20) K/uL Immature Gran # (Auto) (0.01-0.20) K/uL PT (9.0-12.0) Seconds INR (0.9-1.1) APTT (21-31) Seconds PTT Ratio Sodium (136-145) mmol/L Potassium (3.5-5.1) mmol/L Chloride (98-107) mmol/L Carbon Dioxide (21-32) mmol/L Anion Gap (3-11) BUN (6-23) mg/dl Creatinine (0.6-1.2) mg/dl Est Cr Clr Drug Dosing ml/min eGFR BUN/Creatinine Ratio (10-20) Glucose (70-99(Fasting)) mg/dl Calcium (8.6-10.3) mg/dl Magnesium 1.8 (1.7-2.4) mg/dl Total Bilirubin (0.2-1.0) mg/dl AST (13-39) U/L ALT (7-52) U/L Alkaline Phosphatase (34-104) U/L Troponin I High Sens 17.5 H D (0-14) pg/ml B-Natriuretic Peptide (0-100) pg/ml Total Protein (6.0-8.3) gm/dl Albumin (3.4-5.0) gm/dl Globulin (2.5-4.0) gm/dl Albumin/Globulin Ratio (0.9-2) Procalcitonin (0-0.5) ng/ml Nasal Screen MRSA (PCR) (Negative) Administered Medications Amlodipine Besylate (Amlodipine Besylate 5 Mg Tab) 5 mg PO DAILY RENÉ Stop: 06/14/25 04:09 Last Admin: 05/17/25 09:56 Dose: 5 mg Documented By: ivonne Admin: 05/16/25 11:29 Dose: 5 mg Documented By: ivonne Admin: 05/15/25 04:40 Dose: 5 mg Documented By: CARMEN Atorvastatin Calcium (Atorvastatin 20 Mg Tab) 20 mg PO QAM [facility] Stop: 06/14/25 08:59 Last Admin: 05/17/25 09:56 Dose: 20 mg Documented By: ivonne Admin: 05/16/25 09:51 Dose: 20 mg Documented By: ivonne Admin: 05/15/25 07:47 Dose: 20 mg Documented By: CEF Budesonide (Budesonide 0.25 Mg/2 Ml Vial (Pulmicort)) 0.25 mg NEB BIDR RENÉ Stop: 06/14/25 18:59 Last Admin: 05/17/25 07:29 Dose: 0.25 ml Documented By: Admin: 05/16/25 19:50 Dose: 0.25 ml Documented By: Admin: 05/16/25 07:06 Dose: 0.25 ml Documented By: Admin: 05/15/25 19:58 Dose: 0.25 ml Documented By: libia Cetirizine HCl (Cetirizine Hcl 10 Mg Tablet) [facility] Stop: 06/14/25 08:59 Last Admin: 05/17/25 09:56 Dose: 10 mg Documented By: ivonne Admin: 05/16/25 11:28 Dose: 10 mg Documented By: ivonne Admin: 05/15/25 07:47 Dose: 10 mg Documented By: CEF Docusate Sodium (Docusate Sodium 100 Mg Cap) 100 mg PO BID [facility] Stop: 06/13/25 20:59 Last Admin: 05/17/25 09:58 Dose: 100 mg Documented By: ivonne Admin: 05/16/25 22:02 Dose: 100 mg Documented By: arden Admin: 05/16/25 10:05 Dose: 100 mg Documented By: ivonne Admin: 05/15/25 22:29 Dose: 100 mg Documented By: Admin: 05/15/25 07:51 Dose: 100 mg Documented By: Admin: 05/14/25 22:09 Dose: 100 mg Documented By: DAVE Enoxaparin Sodium (Enoxaparin Inj 40 Mg/0.4 Ml Syr) 40 mg SQ QAM [facility] Stop: 06/14/25 08:59 Last Admin: 05/17/25 09:55 Dose: 40 mg Documented By: ivonne Admin: 05/16/25 11:29 Dose: 40 mg Documented By: ivonne Admin: 05/15/25 07:54 Dose: 40 mg Documented By: AMPARO Famotidine (Famotidine 40 Mg Tablet) 40 mg PO HS RENÉ Stop: 06/13/25 20:59 Last Admin: 05/16/25 22:02 Dose: 40 mg Documented By: arden Admin: 05/15/25 22:29 Dose: 40 mg Documented By: Admin: 05/14/25 22:14 Dose: 40 mg Documented By: DAVE Formoterol Fumarate (Formoterol 20 Mcg/2 Ml Vial) 20 mcg NEB BIDR RENÉ Stop: 06/14/25 18:59 Last Admin: 05/17/25 07:29 Dose: 20 mcg Documented By: Admin: 05/16/25 19:50 Dose: 20 mcg Documented By: Admin: 05/16/25 07:06 Dose: 20 mcg Documented By: Admin: 05/15/25 19:54 Dose: 20 mcg Documented By: libia Guaifenesin (Guaifenesin 600 Mg Tabcr) 600 mg PO Q12 RENÉ Stop: 06/13/25 21:19 Last Admin: 05/17/25 09:56 Dose: 600 mg Documented By: ivonne Admin: 05/16/25 22:03 Dose: 600 mg Documented By: arden Admin: 05/16/25 09:49 Dose: 600 mg Documented By: ivonne Admin: 05/15/25 23:04 Dose: 600 mg Documented By: Admin: 05/15/25 07:51 Dose: 600 mg Documented By: Admin: 05/14/25 22:09 Dose: 600 mg Documented By: DAVE Ceftriaxone Sodium (Rocephin) 2,000 mg in 50 mls @ 100 mls/hr IV Q24H RENÉ Stop: 05/18/25 21:29 Last Infusion: 05/16/25 23:40 Dose: Infused Documented By: Admin: 05/16/25 22:02 Dose: 100 mls/hr Documented By: arden Infusion: 05/15/25 23:04 Dose: Infused Documented By: Admin: 05/15/25 22:30 Dose: 100 mls/hr Documented By: NOAH Azithromycin (Zithromax) 500 mg in 255 mls @ 127.5 mls/hr IV Q24H ERNÉ Stop: 05/20/25 12:59 Last Admin: 05/17/25 13:25 Dose: 127.5 mls/hr Documented By: ivonne Infusion: 05/16/25 14:44 Dose: Infused Documented By: ivonne Admin: 05/16/25 12:44 Dose: 127.5 mls/hr Documented By: ivonne Infusion: 05/15/25 14:55 Dose: Infused Documented By: Admin: 05/15/25 12:55 Dose: 127.5 mls/hr Documented By: NATALIE Insulin Aspart (Insulin Aspart Per Unit Charge) 0 units SC ACHS RENÉ Stop: 06/14/25 05:09 Last Admin: 05/17/25 13:24 Dose: 3 units Documented By: ivonne Co-signed By: YANA Admin: 05/17/25 10:07 Dose: Not Given Documented By: ivonne Admin: 05/16/25 21:11 Dose: Not Given Documented By: ARVIN Co-signed By: arden Admin: 05/16/25 17:55 Dose: Not Given Documented By: ivonne Admin: 05/16/25 13:47 Dose: 1 units Documented By: ivonne Co-signed By: DURAN Admin: 05/16/25 10:06 Dose: 4 units Documented By: ivonne Co-signed By: DURAN Admin: 05/15/25 22:17 Dose: 6 units Documented By: NOAH Co-signed By: ERICKA Admin: 05/15/25 18:12 Dose: 6 units Documented By: NATALIE Co-signed By: SHANE Admin: 05/15/25 12:55 Dose: 4 units Documented By: NATALIE Co-signed By: SHRUTI Admin: 05/15/25 05:52 Dose: 7 units Documented By: CARMEN Co-signed By: DEXTER Insulin Glargine (Lantus Per Unit Charge) 10 units SQ BID RENÉ Stop: 06/14/25 05:14 Last Admin: 05/17/25 09:58 Dose: 10 units Documented By: ivonne Co-signed By: YANA Admin: 05/16/25 22:03 Dose: 10 units Documented By: arden Co-signed By: ARVIN Admin: 05/16/25 10:07 Dose: 10 units Documented By: ivonne Co-signed By: DURAN Admin: 05/15/25 22:17 Dose: 10 units Documented By: NOAH Co-signed By: ERICKA Admin: 05/15/25 05:53 Dose: 10 units Documented By: CARMEN Co-signed By: DEXTER Ipratropium [place] (Ipratropium [place] Neb Soln 0.02% 0.5mg/2.5ml Vial) 0.5 mg INH Q6R RENÉ Stop: 06/14/25 00:00 Last Admin: 05/17/25 13:35 Dose: 0.5 mg Documented By: [id number] Admin: 05/17/25 07:30 Dose: Not Given Documented By: Admin: 05/17/25 03:59 Dose: 0.5 mg Documented By: Admin: 05/16/25 19:50 Dose: Not Given Documented By: Admin: 05/16/25 13:43 Dose: 0.5 mg Documented By: [id number] Admin: 05/16/25 07:06 Dose: Not Given Documented By: Admin: 05/16/25 00:08 Dose: 0.5 mg Documented By: Admin: 05/15/25 19:59 Dose: Not Given Documented By: libia Admin: 05/15/25 13:13 Dose: 0.5 mg Documented By: Admin: 05/15/25 07:04 Dose: 0.5 mg Documented By: Admin: 05/15/25 00:59 Dose: 0.5 mg Documented By: libia Lactobacillus Acidophilus (Advanced Probiotic 625 Mg Capsule) 1,250 mg PO DAILY [facility] Stop: 06/14/25 16:44 Last Admin: 05/17/25 09:55 Dose: 1,250 mg Documented By: ivonne Admin: 05/16/25 09:51 Dose: 1,250 mg Documented By: ivonne Admin: 05/15/25 18:12 Dose: 1,250 mg Documented By: NATALIE Levalbuterol HCl (Levalbuterol 1.25 Mg/3 Ml Neb) 1.25 mg NEB Q6R RENÉ Stop: 06/14/25 00:00 Last Admin: 05/17/25 13:35 Dose: 1.25 mg Documented By: [id number] Admin: 05/17/25 07:30 Dose: Not Given Documented By: Admin: 05/17/25 03:58 Dose: 1.25 mg Documented By: Admin: 05/16/25 19:50 Dose: Not Given Documented By: Admin: 05/16/25 13:43 Dose: 1.25 mg Documented By: [id number] Admin: 05/16/25 07:06 Dose: Not Given Documented By: Admin: 05/16/25 00:08 Dose: 1.25 mg Documented By: Admin: 05/15/25 20:00 Dose: Not Given Documented By: libia Admin: 05/15/25 13:13 Dose: 1.25 mg Documented By: Admin: 05/15/25 07:04 Dose: 1.25 mg Documented By: Admin: 05/15/25 00:58 Dose: 1.25 mg Documented By: libia Multivitamins/Minerals (Cerovite Adv Formula Tab) 1 tab PO [facility] Stop: 06/14/25 08:59 Last Admin: 05/17/25 09:56 Dose: 1 tab Documented By: ivonne Admin: 05/16/25 09:50 Dose: 1 tab Documented By: ivonne Admin: 05/15/25 07:46 Dose: 1 tab Documented By: CEF Pantoprazole Sodium (Pantoprazole 40 Mg Tab) 40 mg PO [facility] Stop: 06/14/25 08:59 Last Admin: 05/17/25 09:58 Dose: Not Given Documented By: ivonne Admin: 05/16/25 09:57 Dose: Not Given Documented By: ivonne Admin: 05/15/25 07:48 Dose: Not Given Documented By: CEF Sertraline HCl (Sertraline Hcl 100 Mg Tablet) 100 mg PO [facility] Stop: 06/14/25 08:59 Last Admin: 05/17/25 09:55 Dose: 100 mg Documented By: ivonne Admin: 05/16/25 09:50 Dose: 100 mg Documented By: ivonne Admin: 05/15/25 07:45 Dose: 100 mg Documented By: CEF Discontinued Medications Albuterol (Albut/Ipratrop 3mg/0.5mg Neb 3 Ml Vial) 12 ml NEB ONE ONE; Protocol Stop: 05/14/25 19:58 Last Admin: 05/14/25 20:37 Dose: Not Given Documented By: MADDI Albuterol (Albut/Ipratrop 3mg/0.5mg Neb 3 Ml Vial) 12 ml NEB ONE ONE; Protocol Stop: 05/14/25 20:04 Last Admin: 05/14/25 20:07 Dose: 12 ml Documented By: MOE Magnesium Sulfate/Dextrose (Magnesium Sulfate / D5w) 1 gm in 100 mls @ 200 mls/hr IV Q30M RENÉ Stop: 05/14/25 20:57 Last Infusion: 05/14/25 21:57 Dose: Infused Documented By: Admin: 05/14/25 20:37 Dose: 200 mls/hr Documented By: Infusion: 05/14/25 20:37 Dose: Infused Documented By: Admin: 05/14/25 20:07 Dose: 200 mls/hr Documented By: MOE Ceftriaxone Sodium (Rocephin) 2,000 mg in 50 mls @ 100 mls/hr IV NOW STA Stop: 05/14/25 20:30 Last Infusion: 05/14/25 22:40 Dose: Infused Documented By: Admin: 05/14/25 22:08 Dose: 100 mls/hr Documented By: DAVE Methylprednisolone 40 mg/ (Syringe) 0.64 mls @ 1.5 mls/min IV BID RENÉ Stop: 06/14/25 08:59 Last Admin: 05/15/25 07:52 Dose: 1.5 mls/min Documented By: CEF Albumin Human (Albumin 25%) 25 gm in 100 mls @ 50 mls/hr IV ONE ONE Stop: 05/14/25 23:40 Last Infusion: 05/15/25 00:18 Dose: Infused Documented By: Admin: 05/14/25 22:08 Dose: 50 mls/hr Documented By: DAVE Ertapenem (Invanz 1000mg) 1,000 mg in 10 mls @ 2 mls/min IV Q24H RENÉ Stop: 05/19/25 22:59 Last Admin: 05/15/25 00:29 Dose: 2 mls/min Documented By: DAVE Insulin Aspart (Insulin Aspart Per Unit Charge) 0 units SC ACHS RENÉ Stop: 06/13/25 23:30 Last Admin: 05/15/25 00:30 Dose: 5 units Documented By: DAVE Co-signed By: DEXTER Insulin Glargine (Lantus Per Unit Charge) 5 units SQ BID RENÉ Stop: 06/13/25 23:30 Last Admin: 05/15/25 00:30 Dose: 5 units Documented By: DAVE Co-signed By: DEXTER Ioversol (Optiray 320 125ml) 115 ml IV ONCE ONE Stop: 05/14/25 21:34 Last Admin: 05/14/25 21:33 Dose: 115 ml Documented By: DURAN(2) Levalbuterol HCl (Levalbuterol 1.25 Mg/3 Ml Neb) 3.75 mg NEB NOW STA Stop: 05/14/25 20:03 Last Admin: 05/14/25 20:49 Dose: 3.75 mg Documented By: dmw Methylprednisolone (Methylprednisolone 125 Mg/2 Ml Vial) 125 mg IV NOW STA Stop: 05/14/25 19:58 Last Admin: 05/14/25 20:11 Dose: 125 mg Documented By: NAW Perflutren Lipid Microsphere (Perflutren Lipid Microsphere (Definity)) 2 ml IV ONCE ONE Stop: 05/15/25 13:00 Last Admin: 05/15/25 12:59 Dose: 2 ml Documented By: DASudhakar Imaging Data Radiologist's Impression: Chest X-Ray 05/14/25 18:21 EXAM: Portable AP chest radiograph TECHNIQUE: AP portable radiograph of the chest was obtained. INDICATION: Chest pain Comparison: Chest radiograph December 19, 2023 FINDINGS: LINES and TUBES: None CARDIOVASCULAR: Cardiac silhouette is stably and mildly enlarged. LUNGS/PLEURA: No focal consolidation identified. Mild pulmonary vascular congestion has increased from the previous radiograph. Small pleural fluids may be present. No discernible pneumothorax. OSSEOUS/OTHER: No displaced acute osseous process identified. IMPRESSION: Congestive changes of the cardiovascular system that appear to have mildly worsened from the previous radiograph Electronically signed by Zach Hobbs 05-14-2025 7:37 PM Discharge Plan Visit Data Chief Complaint: Shortness of Breath/Dyspnea Stated Complaint: SOB ED Provider: Kyrie Fine Discharge Problem: Acute hypoxic respiratory failure, Asthma exacerbation Patient Disposition: Admitted As Inpatient Condition: Good Discharge Instructions Interventions: ED Discharge Assessment Last Done: 05/14/25 23:31
[2025-05-14] MEDS: ALBUT/IPRATROP 3MG/0.5MG NEB 3 ML VIAL NEB ONE ×2 (20:07→20:37)
[2025-05-14] MEDS: MAGNESIUM SULFATE / D5W 1 GM/100 ML BAG IV SCH (20:07)
--- NOTE | 2025-05-14 20:20 | History & Physical Report ---
Date of Service May 14, 2025 Assessment & Plan (1) Acute hypoxic respiratory failure: (2) Asthma exacerbation: (3) Hypertension: (4) Hyperlipidemia: (5) GERD (gastroesophageal reflux disease): (6) Depression: Plan 65 year old female with PMH significant for dyslipidemia, asthma, hypertension, GERD, IBS, diverticulosis, depression, and morbid obesity who presented to the ED on 05/14/2025 with SOB and viral symptoms for 6 dyas and is admitted for acute hypoxic respiratory failure secondary to an asthma exacerbation. Acute hypoxic respiratory failure Asthma exacerbation Patient presenting with 6 days of viral symptoms and worsening SOB Hypoxic at urgent care today to 73% on room air CXR reveals mild pulmonary vascular congestion VBG pending Oxygen as needed Received duoneb x1 and xopenex x1 in the ED Received solu-medrol in the ED Received 2g mag in the ED Ordered ceftriaxone in the ED Possible sepsis Leukocytosis 29K and tachycardia Lactate pending Blood cultures pending Continue ceftriaxone Elevated troponin Initial 31 with repeat 17.5 Likely secondary to acute illness EKG without signs of ischemia Hyperglycemia Glucose 169 on admission A1C 7.0 in March 2025 per records BSG ACHS and SSI while inpatient Hypertension Continue amlodipine and furosemide Dyslipidemia Continue atorvastatin GERD Continue PPI and famotidine Depression Continue sertraline DVT Prophylaxis: SQ lovenox Code Status: FULL CODE - As per discussion at bedside with the patient. PCP: Faina Alvarez Disposition: admit to [facility] Patient seen in collaboration with Dr Pineda. Please see addendum. I spent a total of 70 minutes coordinating, documenting and providing care for this patient excluding time spent in the performance of separately billed services or time spent by another provider/QHP. Admission and Anticipated Discharge Date Admission Date: 05/14/2025 History of Present Illness Chief Complaint: SOB Primary Care Provider: Faina Alvarez PA-C 65 year old female with PMH significant for dyslipidemia, asthma, hypertension, GERD, IBS, diverticulosis, depression, and morbid obesity who presented to the ED on 05/14/2025 with SOB and viral symptoms x6 days. Patient reports she started feeling sick last Tuesday where she was experiencing fevers/chills, sore throat, runny nose, fatigue/malaise, and SOB. She notes her symptoms, especially SOB, worsened significantly on Tuesday and she developed a productive cough and nausea with one episode of vomiting. She has been compliant with her symbicort and tried her albuterol inhaler with no improvement in SOB. She sought evaluation via telemedicine yesterday and was prescribed azithromycin. Her son and daughter in law both had sore throats (strep negative) that improved on azithromycin. Her symptoms continued to worsen today, prompting her to seek ev aluation at urgent care. At urgent care, she reports her oxygen level was 73% on room air and she was referred to the emergency department for further evaluation. Patient was seen in the ED while receiving a nebulizer and reports her SOB feels better since receiving nebs. Allergies Allergy/AdvReac Type Severity Reaction Status Date / Time pantoprazole Allergy Unknown RASH ON ARM Verified 03/07/23 06:33 Penicillins Allergy Unknown throat Verified 03/07/23 06:33 swelling Home Medications Medication Instructions Recorded Confirmed Type atorvastatin 20 mg tablet (Lipitor) 20 mg PO QAM 03/14/19 05/14/25 History budesonide-formoterol HFA 160 2 puff inhalation BID 03/14/19 05/14/25 History mcg-4.5 mcg/actuation aerosol inhaler (Symbicort) cetirizine 10 mg tablet (Zyrtec) 10 mg PO QAM 03/14/19 05/14/25 History hvoruzsi-apsp-qtrr 8 mg-folic 400 1 tab PO QAM 03/14/19 05/14/25 History mcg-K 50 mcg-lutein 300 mcg tablet (Multivitamin Women 50 Plus) famotidine 40 mg tablet (Pepcid) 40 mg PO HS 10/08/19 05/14/25 History omeprazole 40 mg capsule,delayed 40 mg PO QAM 10/08/19 05/14/25 History release sertraline 50 mg tablet (Zoloft) 100 mg PO QAM 08/15/21 05/14/25 History albuterol sulfate 90 mcg/actuation 2 inh inhalation Q6H PRN ASTHMA 02/04/23 05/14/25 History aerosol inhaler lactobacillus combination no.8 3 3 cell PO QAM 02/15/23 05/14/25 History billion cell capsule epinephrine 0.3 mg/0.3 mL 0.3 mg (0.3 mL) IM DIRECTED PRN 12/15/23 05/14/25 Rx injection, auto-injector (EpiPen anaphylaxis #2 ea 2-Atif) amlodipine 5 mg tablet 5 mg PO DAILY 05/14/25 05/14/25 History docusate sodium 100 mg capsule 100 mg PO BID 05/14/25 05/14/25 History furosemide 20 mg tablet 20 mg PO DAILY 05/14/25 05/14/25 History Past Med/Surg History Problem List (Updated 05/14/25 @ 20:58 by ALEXANDRA Ferrari) Asthma exacerbation Acute hypoxic respiratory failure Asthma (Chronic) Medical History (Updated 05/14/25 @ 20:58 by ALEXANDRA Ferrari) Depression HLD (hyperlipidemia) COVID-19 Cough Mediastinal adenopathy Abnormal CT scan of lung DVT prophylaxis Encounter for pre-operative examination Incisional hernia DVT prophylaxis Ventral hernia Allergic rhinitis Abdominal pain Abdominal pain History of blood transfusion 1986 Lung nodules Found on preop CXR, was monitored/stable per lung specialist f/u Per patient, was advised to f/u PRN Elevated WBC count HX PRIOR TO HIP SURGERY IN 2019/WAS RECOVERING FROM BRONCHITIS. CURRENTLY ELEVATED FROM BLOODWORK ON FEB 02 2023. PT DENIES RECENT KNOWN INFECTION OR S/S ILLNESS. Panic attacks Migraine Stable Hyperlipidemia IBS (irritable bowel syndrome) GERD (gastroesophageal reflux disease) controlled, stable per pt Diverticulosis Asthma Hypertension controlled, stable per pt Surgical History H/O: hysterectomy Status post right knee replacement (~02/2023) History of total right hip arthroplasty Right anterior CHRISTO (11/16/19): SA at L4-5 (x1 attempt) at [facility]. History of esophagogastroduodenoscopy (EGD) History of colonoscopy History of tonsillectomy History of incisional hernia repair laparoscopic incisional hernia History of appendectomy History of History of tubal ligation History of exploratory laparotomy x2; 1980s (lysis of adhesions) History of ERCP Hx of cholecystectomy Family History Father Lung cancer Family history of throat cancer Mother Lung disease Other Asthma Diabetes Heart disease No family history of adverse response to anesthesia Social History (Updated 05/14/25 @ 20:59 by ALEXANDRA Ferrari) Smoking Status: Never smoker Second Hand Exposure: No; Do You Dip or Chew Tobacco: No; Tobacco Cessation Education Requested by Patient: No Hx Alcohol Use: No Hx Substance Use: No Preferred Language: Wolof Communication Ability: Effective Visual Impairment: Limited Ammonia Refrigeration Worker Required: No Beliefs That Will Affect Care: None Current Living Situation: Spouse Other Information That Helps Us Care for You: No Feels Safe at Home: Yes Safety Concerns: Feels Safe At This Time Review of Systems Review of Systems: All systems reviewed & are unremarkable except as noted in HPI & below Physical Exam Physical Exam: General/Psych: ill appearing, obese, sitting up in bed, flushed in the face, receiving neb Head: normocephalic, atraumatic Eyes: normal inspection, PERRL, conjunctivae pink ENT: external ear and nose normal, oropharynx normal Neck: normal visual inspection, trachea midline Respiratory: normal respiratory effort, lungs with bilateral rhonchi and expir atory wheezing, no accessory muscle use Cardiovascular: regular rate and rhythm, no murmur/rub/gallop, no JVD Extremities: no cyanosis or clubbing, normal peripheral pulses, non-pitting BLE edema Abdomen/GI: normal bowel sounds, soft, nontender Neurologic/MSK: A+Ox3, motor strength 5/5, moves all extremities Skin: no rashes, normal color, warm and dry Results & Data Results & Data Vital Signs (Past 12 Hours) Vital Signs Temp Pulse Resp BP Pulse Ox O2 Del Method O2 Flow Rate 05/14/25 19:31 96 H 05/14/25 18:18 93 Nasal Cannula 4 05/14/25 18:16 37.3 C 100 H 20 149/78 H 74 L Room Air Laboratory Results Short CBC 05/14/25 Range/Units 18:28 WBC 29.08 H (4.8-10.8) K/ul Hgb 13.2 (12.0-16.0) g/dl Hct 40.4 (37.0-47.0) % Plt Count 286 (130-400) K/uL BMP 05/14/25 18:28 Sodium 138 Potassium 3.7 Chloride 101 Carbon Dioxide 28 BUN 12 Creatinine 0.65 Glucose 169 H Calcium 9.1 Liver Function 05/14/25 Range/Units 18:28 Total Bilirubin 1.1 H (0.2-1.0) mg/dl AST 29 (13-39) U/L ALT 43 (7-52) U/L Alkaline Phosphatase 235 H (34-104) U/L Albumin 3.5 (3.4-5.0) gm/dl I have independently reviewed and interpreted patient's admitting labs including CBC, CMP, PTT, PT/INR, mag and troponin. Diagnostic Findings Chest X-Ray 05/14/25 18:21 EXAM: Portable AP chest radiograph TECHNIQUE: AP portable radiograph of the chest was obtained. INDICATION: Chest pain Comparison: Chest radiograph December 19, 2023 FINDINGS: LINES and TUBES: None CARDIOVASCULAR: Cardiac silhouette is stably and mildly enlarged. LUNGS/PLEURA: No focal consolidation identified. Mild pulmonary vascular congestion has increased from the previous radiograph. Small pleural fluids may be present. No discernible pneumothorax. OSSEOUS/OTHER: No displaced acute osseous process identified. IMPRESSION: Congestive changes of the cardiovascular system that appear to have mildly worsened from the previous radiograph Electronically signed by Zach Hobbs 05-14-2025 7:37 PM ECG Additional Comments: I have independently reviewed and interpreted patient's admitting EKG which revealed: NSR at a rate of 99bpm; QTc 433 Supervising Physician Co-Signing Physician Notes IM ATTENDING : Patient seen and examined. History obtained from patient, family, and records. Concur with salient points upon review of preceding documentation by ALEXANDRA Patel. In addition, Patient complained of chest heaviness and occasional choking symptoms from time to time with food/water intake. CT chest results as follows 1. Bilateral hilar lymphadenopathy is present measuring up to 15 mm short axis diameter, slightly greater than previous. 2. Partial consolidation of both lower lobes, ovpx-gvfpius-epoz-right consistent with pneumonia or atelectasis. There is a small left pleural effusion layering posteriorly measuring 1.8 cm which is new. 3. There are also small areas of infiltrate in the upper lobes bilaterally. 4. The pulmonary arterial tree is well opacified with contrast. No pulmonary embolism is identified. No aortic aneurysm or dissection. I take responsibility for plan of care below. 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 Lovenox subcu Full code Text document was generated using H2020 recognition software. It may contain grammatical or spelling errors. Kindly contact undersigned for clarification of any documentation item in question. I spent a total of 30 minutes coordinating, documenting, and providing care for this patientexcludingtime spent by another provider/QHP. Text document was generated using H2020 recognition software. It may contain grammatical or spelling errors. Kindly contact undersigned for clarification of any documentation item in question.
[2025-05-14 20:46] LABS: Magnesium 1.8 mg/dl (1.7-2.4)
[2025-05-14] MEDS: LEVALBUTEROL 1.25 MG/3 ML NEB NEB STA (20:49)
[2025-05-14] MEDS ORDERED: PROMETHAZINE 12.5 MG/50.5 ML BAG IV PRN (21:19)
[2025-05-14 21:23] LABS: Base Excess VBG 4.6 mEq/L; HCO3 VBG 30 mmol/L; Oxygen Saturation VBG 92.6 %; PCO2 VBG 49 mmHg (38-50); PO2 VBG 62 mmHg; pH VBG 7.40 (7.36-7.41)
[2025-05-14] MEDS: OPTIRAY 320 125ml IV ONE (21:33)
[2025-05-14] MEDS: cefTRIAXone SODIUM 2,000 MG/50 ML BAG IV STA (22:08)
[2025-05-14] MEDS: ALBUMIN 25% 25 GM/100 ML VIAL IV ONE (22:08)
[2025-05-14] MEDS: guaiFENesin 600 MG TABCR PO SCH (22:09)
[2025-05-14] MEDS: DOCUSATE SODIUM 100 MG CAP PO SCH (22:09)
[2025-05-14] MEDS: FAMOTIDINE 40 MG TABLET PO SCH (22:14)
--- NOTE | 2025-05-14 22:30 | CT Scan Report ---
Exam(s): CTA CHEST IV Amt: 115cc opti 320 EXAM: CT Angiography Chest With Intravenous Contrast CLINICAL HISTORY: Reason for exam: cp. TECHNIQUE: Axial computed tomographic angiography images of the chest with intravenous contrast. CTDI is 44.76 mGy and DLP is 870.64 mGy-cm. Automated exposure control was utilized for the study. A dose lowering technique was utilized adhering to the principles of ALARA. MIP reconstructed images were created and reviewed. COMPARISON: 10/22/2020 FINDINGS: Pulmonary arteries: The pulmonary arterial tree is well opacified with contrast. No pulmonary embolism is identified. Aorta: No acute findings. No thoracic aortic aneurysm. Lungs: Partial consolidation of both lower lobes, kfse-ddhgqho-xekp- right consistent with pneumonia or atelectasis. There is a small left pleural effusion layering posteriorly measuring 1.8 cm which is new. There are also small areas of infiltrate in the upper lobes bilaterally. Pleural space: See above. Heart: Unremarkable. No cardiomegaly. No significant pericardial effusion. No evidence of RV dysfunction. Bones/joints: Mild degenerative changes throughout the spine. No acute fracture or bone lesion is seen. No dislocation. Soft tissues: Unremarkable. Lymph nodes: Bilateral hilar lymphadenopathy is present measuring up to 15 mm short axis diameter, slightly greater than previous. Liver: Fatty infiltration of the liver. IMPRESSION: 1. Bilateral hilar lymphadenopathy is present measuring up to 15 mm short axis diameter, slightly greater than previous. 2. Partial consolidation of both lower lobes, onnj-kfywbfl-tcfz-right consistent with pneumonia or atelectasis. There is a small left pleural effusion layering posteriorly measuring 1.8 cm which is new. 3. There are also small areas of infiltrate in the upper lobes bilaterally. 4. The pulmonary arterial tree is well opacified with contrast. No pulmonary embolism is identified. No aortic aneurysm or dissection. Electronically signed by: Jayson Rico MD 05/14/25 22:29 PM
[2025-05-14] MEDS ORDERED: GLUCOSE 10 TAB/TUBE PO PRN (23:31)
[2025-05-14] MEDS ORDERED: GLUCAGON FOR INJ 1 MG VIAL SQ PRN (23:31)
[2025-05-14] MEDS ORDERED: GLUCOSE 40% GEL 15 GM TUBE PO PRN (23:31)
[2025-05-14] MEDS ORDERED: DEXTROSE 50% 50 ML SYRINGE IV PRN (23:31)
[2025-05-14] MEDS ORDERED: CARBOHYDRATES FOR HYPOGLYCEMIA PO PRN (23:31)
[2025-05-15] MEDS: ERTAPENEM 1000MG 1,000 MG/10 ML SYR IV SCH (00:29)
[2025-05-15] MEDS: INSULIN ASPART PER UNIT CHARGE SC SCH ×2 (00:30→05:52)
[2025-05-15] MEDS: LANTUS PER UNIT CHARGE SQ SCH ×2 (00:30→05:53)
[2025-05-15 00:46] LABS: Chlamydia pneumoniae PCR Not Detected (NotDetected); Coronavirus 229E PCR Not Detected (NotDetected); Coronavirus CoV-2 (COVID19)PCR Not Detected (NotDetected); Coronavirus HKU1 PCR Not Detected (NotDetected); Coronavirus NL63 PCR Not Detected (NotDetected); Coronavirus OC43PCR Not Detected (NotDetected); Human Metapneumovirus PCR Not Detected (NotDetected); Parainfluenza Virus 1 PCR Not Detected (NotDetected); Parainfluenza Virus 2 PCR Not Detected (NotDetected); Parainfluenza Virus 3 PCR Not Detected (NotDetected); Parainfluenza Virus 4 PCR Not Detected (NotDetected); Respiratory Syncytial VirusPCR Not Detected (NotDetected); Rhinovirus/Enterovirus PCR DETECTED (NotDetected)
[2025-05-15] MEDS: LEVALBUTEROL 1.25 MG/3 ML NEB NEB SCH (00:58)
[2025-05-15] MEDS: IPRATROPIUM BROMIDE NEB SOLN 0.02% 0.5MG/2.5ML VIAL INH SCH (00:59)
[2025-05-15 04:41] LABS: Hematocrit (blood only) 37.9 % (37.0-47.0); Hemoglobin 12.2 g/dl (12.0-16.0); Mean Corpuscular Hemoglobin 27.5 pg (25.0-34.0); Mean Corpuscular Volume 85.4 fL (80.0-100.0); Platelet Count 263 K/uL (130-400); RDW Standard Deviation 43.8 fL (36.4-46.3); Red Blood Count 4.44 M/uL (4.20-5.40); White Blood Count 25.93 K/ul (4.8-10.8)
[2025-05-15 05:04] LABS: Immature Granulocytes # (auto) 0.94 K/uL (0.01-0.20); Immature Granulocytes % (auto) 3.6 %; Polychromasia 1+
[2025-05-15 05:09] LABS: Anion Gap 10.0 (3-11); Blood Urea Nitrogen 12.0 mg/dl (6-23); Calcium 9.2 mg/dl (8.6-10.3); Carbon Dioxide 27.0 mmol/L (21-32); Chloride 100.0 mmol/L (98-107); Creatinine Clr Calc Pharmacy 99.3 ml/min; Glucose 308.0 mg/dl (70-99(Fasting)); Potassium 3.9 mmol/L (3.5-5.1); Sodium 137.0 mmol/L (136-145)
[2025-05-15 05:13] LABS: Thyroid Stimulating Hormone 0.282 uIu/ml (0.300-4.500)
[2025-05-15] MEDS: SERTRALINE HCL 100 MG TABLET PO SCH (07:45)
[2025-05-15] MEDS: CEROVITE ADV FORMULA TAB PO SCH (07:46)
[2025-05-15] MEDS: CETIRIZINE HCL 10 MG TABLET PO SCH (07:47)
[2025-05-15] MEDS: ATORVASTATIN 20 MG TAB PO SCH (07:47)
[2025-05-15] MEDS: ENOXAPARIN INJ 40 MG/0.4 ML SYR SQ SCH (07:54)
--- NOTE | 2025-05-15 08:49 | Pulmonary Consultation ---
Date of Consultation May 15, 2025 Assessment & Plan (1) Asthma exacerbation: (2) Acute hypoxic respiratory failure: (3) Mediastinal adenopathy: (4) Multifocal pneumonia: (5) Pleural effusion: Plan CT chest 05/14/2025 personally reviewed: Motion degraded study Tree-in-bud opacities appreciated in the right upper lobe Consolidative changes appreciated in the left lower lobe with left-sided pleural effusion Dependent atelectasis of the right lower lobe Bilateral hilar lymphadenopathy (unchanged compared to 11/09) 2D echo 05/15/2025: EF 60-65%, grade 1 diastolic dysfunction, RV normal in size and function --Acute hypoxic respiratory failure Secondary to multilobar pneumonia Respiratory BioFire positive for entero-/rhinovirus on 05/14/2025, negative for everything else BNP 107 Nasal MRSA negative, procalcitonin 0.58 --Hilar lymphadenopathy Minimally enlarged when compared to CAT scan of the chest 11/2020 --History of asthma On Symbicort 160 at home Consider addition of Spiriva to the regimen on discharge Absolute eosinophil count 210 on 12/19/2023 --Obesity with probable VIKTORIA Recommend outpatient polysomnography Plan: Follow-up procalcitonin Continue with antibiotics for at least 5-7 days Nebulized bronchodilators while in the hospital Incentive spirometry vwjowy-eah-nedem Follow-up sputum culture Lisinopril effusion too small for any intervention Recommend 2D echo if not already done I spent more than 75 minutes looking in the chart, images, discussing the plan of care with the patient, RN as well as primary team Please note the above document was generated using voice recognition software. It may contain grammatical, syntax or spelling errors.Any formal questions or concerns about the content, text or information contained within the body of this dictation should be directly addressed to the provider for clarification. History of Present Illness Attending Physician: Renetta Dubose MD History of Present Illness 65-year-old female admitted to the hospital for shortness of breath Past medical history: GERD, hypertension, diverticulosis, dyslipidemia, depression Pulmonary consulted for abnormal chest CT At the time of examination patient was saturating 92% on 2 L nasal cannula. She was not in any respiratory distress She stated she is feeling better since she came to the hospital. She has been complaining of shortness of breath with saturations going down into the low 80s to high 70s She is compliant with her inhalers and uses it on a daily basis Does complain of chest congestion and difficulty bringing up the phlegm. Denies any hemoptysis Denies any nausea or vomiting No dysuria. No diarrhea. No unusual headache or blurry vision. Denies any unintentional weight loss. Patient has gained extra 40 pounds in the last 2 years Social history: Lifetime non-smoker, used to work as a visiting housekeeper Has goats and dogs outside. Does have family history of asthma Allergies Allergy/AdvReac Type Severity Reaction Status Date / Time pantoprazole Allergy Unknown RASH ON ARM Verified 03/07/23 06:33 Penicillins Allergy Unknown throat Verified 03/07/23 06:33 swelling Home Medications Medication Instructions Recorded Confirmed Type atorvastatin 20 mg tablet (Lipitor) 20 mg PO QAM 03/14/19 05/14/25 History budesonide-formoterol HFA 160 2 puff inhalation BID 03/14/19 05/14/25 History mcg-4.5 mcg/actuation aerosol inhaler (Symbicort) cetirizine 10 mg tablet (Zyrtec) 10 mg PO QAM 03/14/19 05/14/25 History ekchmrlh-gxyl-kbto 8 mg-folic 400 1 tab PO QAM 03/14/19 05/14/25 History mcg-K 50 mcg-lutein 300 mcg tablet (Multivitamin Women 50 Plus) famotidine 40 mg tablet (Pepcid) 40 mg PO HS 10/08/19 05/14/25 History omeprazole 40 mg capsule,delayed 40 mg PO QAM 10/08/19 05/14/25 History release sertraline 50 mg tablet (Zoloft) 100 mg PO QAM 08/15/21 05/14/25 History albuterol sulfate 90 mcg/actuation 2 inh inhalation Q6H PRN ASTHMA 02/04/23 05/14/25 History aerosol inhaler lactobacillus combination no.8 3 3 cell PO QAM 02/15/23 05/14/25 History billion cell capsule epinephrine 0.3 mg/0.3 mL 0.3 mg (0.3 mL) IM DIRECTED PRN 12/15/23 05/14/25 Rx injection, auto-injector (EpiPen anaphylaxis #2 ea 2-Atif) amlodipine 5 mg tablet 5 mg PO DAILY 05/14/25 05/14/25 History docusate sodium 100 mg capsule 100 mg PO BID 05/14/25 05/14/25 History furosemide 20 mg tablet 20 mg PO DAILY 05/14/25 05/14/25 History Patient History Medical History (Updated 05/15/25 @ 17:59 by Leon Sandhu MD, [facility]) Depression HLD (hyperlipidemia) COVID-19 Cough Mediastinal adenopathy Abnormal CT scan of lung DVT prophylaxis Encounter for pre-operative examination Incisional hernia DVT prophylaxis Ventral hernia Allergic rhinitis Abdominal pain Abdominal pain History of blood transfusion 1986 Lung nodules Found on preop CXR, was monitored/stable per lung specialist f/u Per patient, was advised to f/u PRN Elevated WBC count HX PRIOR TO HIP SURGERY IN 2019/WAS RECOVERING FROM BRONCHITIS. CURRENTLY ELEVATED FROM BLOODWORK ON FEB 02 2023. PT DENIES RECENT KNOWN INFECTION OR S/S ILLNESS. Panic attacks Migraine Stable Hyperlipidemia IBS (irritable bowel syndrome) GERD (gastroesophageal reflux disease) controlled, stable per pt Diverticulosis Asthma Hypertension controlled, stable per pt Surgical History H/O: hysterectomy Status post right knee replacement (~02/2023) History of total right hip arthroplasty Right anterior CHRISTO (11/16/19): SA at L4-5 (x1 attempt) at [facility]. History of esophagogastroduodenoscopy (EGD) History of colonoscopy History of tonsillectomy History of incisional hernia repair laparoscopic incisional hernia History of appendectomy History of History of tubal ligation History of exploratory laparotomy x2; 1980s (lysis of adhesions) History of ERCP Hx of cholecystectomy Family History Father Lung cancer Family history of throat cancer Mother Lung disease Other Asthma Diabetes Heart disease No family history of adverse response to anesthesia Social History (Updated 05/14/25 @ 20:59 by ALEXANDRA Ferrari) Smoking Status: Never smoker Second Hand Exposure: No; Do You Dip or Chew Tobacco: No; Tobacco Cessation Education Requested by Patient: No Hx Alcohol Use: No Hx Substance Use: No Preferred Language: Malagasy Communication Ability: Effective Visual Impairment: Limited Putty Mixer And Applier Required: No Beliefs That Will Affect Care: None Current Living Situation: Spouse Other Information That Helps Us Care for You: No Feels Safe at Home: Yes Safety Concerns: Feels Safe At This Time Assistive Devices: None Review of Systems 2 Review of Systems: All systems reviewed & are unremarkable except as noted in HPI & below Physical Exam 2 Physical Exam: Constitutional: No acute distress HEENT: EOMI, PERRLA Respiratory system: Decreased air entry bilaterally, no wheeze, no rhonchi, positive crackles bilateral lower lobes CVS: S1-S2 positive, no murmurs or gallops Abdomen: Soft, nontender, nondistended, positive bowel sounds x4, obese Extremities: +2 pulses bilaterally radialis/ dorsalis pedis, no cyanosis, minimal pitting edema bilateral lower extremity Neuro: Awake alert oriented x3 Psych: Normal mood and affect G/U: No Parikh Skin: no rashes, warm and dry Lymphatic: no cervical or axillary lymphadenopathy Results & Data Results & Data Vital Signs (Past 12 Hours) Vital Signs Temp Pulse Pulse Resp BP BP Pulse Ox 05/15/25 07:42 101 H 22 150/72 H 92 05/15/25 07:22 85 05/15/25 07:06 87 16 94 05/15/25 03:44 05/15/25 03:44 36.8 C 92 H 22 165/86 H 92 05/15/25 01:59 95 H 20 142/78 H 93 05/15/25 01:00 95 H 18 94 05/15/25 00:00 100 H 129/75 92 05/14/25 23:31 05/14/25 23:00 104 H 21 125/63 90 05/14/25 22:10 109 H 18 124/70 91 05/14/25 21:54 90 05/14/25 21:43 112 H 20 115/71 91 Pulse Ox O2 Del Method O2 Del Method O2 Flow Rate O2 Flow Rate 05/15/25 07:42 Nasal Cannula 4 05/15/25 07:22 05/15/25 07:06 Oxymask 5 05/15/25 03:44 Oxymask 5 05/15/25 03:44 Oxymask 5 05/15/25 01:59 Oxymask 4 05/15/25 01:00 Nasal Cannula 4 05/15/25 00:00 Nasal Cannula 4 05/14/25 23:31 92 Nasal Cannula 4 05/14/25 23:00 Nasal Cannula 4 05/14/25 22:10 Room Air 05/14/25 21:54 Nasal Cannula 4 05/14/25 21:43 Nasal Cannula Laboratory Results 05/15/25 04:18 05/15/25 04:18 PG Care Time/CCT Total # of Minutes Spent Total Time Spent with Patient: Total time spent is greater than 50% in coordination of care (as documented) at patient's floor/unit and/or counseling patient: [place] [address] INT INP/OBS CARE 3/75MIN Patient Type New Diagnoses Asthma exacerbation J45.901 Acute hypoxic respiratory failure J96.01 Mediastinal adenopathy R59.0 Multifocal pneumonia J18.8 Pleural effusion J90
[2025-05-15] MEDS ORDERED: ASPIRIN 81 MG ECTAB PO SCH (09:00)
--- NOTE | 2025-05-15 12:29 | Hospitalist Progress Note ---
Date of Service May 15, 2025 Assessment & Plan (1) Acute hypoxic respiratory failure: (2) Asthma exacerbation: (3) Hypertension: (4) Hyperlipidemia: (5) GERD (gastroesophageal reflux disease): (6) Depression: Plan 65 year old female with PMH significant for dyslipidemia, asthma, hypertension, GERD, IBS, diverticulosis, depression, and morbid obesity who presented to the ED on 05/14/2025 with SOB and viral symptoms for 6 dyas and is admitted for acute hypoxic respiratory failure Acute hypoxic respiratory failure Sepsis Pneumonia Patient presenting with 6 days of viral symptoms and worsening SOB Hypoxic at urgent care on day of admission to 73% on room air CXR reveals mild pulmonary vascular congestion CTA chest noted partial consolidation in both lower lobes( L>R), small left pleural effusion, small areas of infiltrate in upper lobes b/l. No PE Currently on ertapenem Discussed with pharm. Patient tolerated ceftriaxone in ER yesterday without any reaction Antibiotics deescalated to ceftriaxone and azithromycin Stop solumedrol for now Pulm eval noted On admission, lab noted Leukocytosis 29K and tachycardia Outpatient lab review showed patient has chronic leukocytosis for which she had followed up with Hematology in the past. However, increased leukocytosis on this admission is likely due to infection Monitor Elevated troponin Initial 31 with repeat 17.5 Likely secondary to acute illness EKG without signs of ischemia TTE ordered Diabetes Glucose 169 on admission A1C 7.0 in March 2025 per EPIC review. Based on that A1c and blood glucose trend, patient has diabetes mellitus BSG ACHS and SSI while inpatient Education provided Will provide more education and resources during this visit Hypertension Continue amlodipine and furosemide Dyslipidemia Continue atorvastatin GERD Continue PPI and famotidine Depression Continue sertraline DVT Prophylaxis: SQ lovenox Code Status: FULL CODE I spent a total of 55 minutes coordinating, documenting and providing care for this patient excluding time spent in performance of separately billed services Admission and Anticipated Discharge Date Admission Date: May 14, 2025 Subjective Patient seen and examined Reports feeling better today Cough, SOB improved Chest tightness improved Physical Exam Constitutional: + well hydrated; no acute distress Eyes: PERRL, conjunctivae normal, anicteric sclerae ENMT: external ear and nose normal, oropharynx normal Respiratory: On nasal cannula, not in resp distress, few rhonchi Cardiovascular: Rate/Rhythm: regular rate and regular rhythm Gastrointestinal (Abdomen): normal bowel sounds, soft, nontender, no hepatosplenomegaly Musculoskeletal: No pedal edema Neurologic: PERRL, EOMI, accommodation nl, no face palsy, no dysarthria Psychiatric: A+Ox3, euthymic affect Results & Data Results & Data Vital Signs (Past 12 Hours) Vital Signs Temp Pulse Pulse Pulse Resp BP BP 05/15/25 09:22 84 05/15/25 08:57 05/15/25 08:57 05/15/25 08:57 36.7 C 85 18 123/72 05/15/25 07:42 101 H 22 150/72 H 05/15/25 07:22 85 05/15/25 07:06 87 16 05/15/25 03:44 05/15/25 03:44 36.8 C 92 H 22 165/86 H 05/15/25 01:59 95 H 20 142/78 H 05/15/25 01:00 95 H 18 Pulse Ox O2 Del Method O2 Flow Rate 05/15/25 09:22 05/15/25 08:57 Nasal Cannula 4 05/15/25 08:57 94 Room Air 4 05/15/25 08:57 94 Room Air 4 05/15/25 07:42 92 Nasal Cannula 4 05/15/25 07:22 05/15/25 07:06 94 Oxymask 5 05/15/25 03:44 Oxymask 5 05/15/25 03:44 92 Oxymask 5 05/15/25 01:59 93 Oxymask 4 05/15/25 01:00 94 Nasal Cannula 4 Laboratory Results Abnormal lab results 05/14/25 05/14/25 05/14/25 Range/Units 18:28 20:14 20:15 WBC 29.08 H (4.8-10.8) K/ul MPV 9.2 L (9.4-12.4) fL Neut # (Auto) 24.70 H (1.40-6.50) K/uL Lymph # (Auto) (1.20-3.40) K/uL [place] # (Auto) 1.77 H (0.11-0.59) K/uL Immature Gran # (Auto) 0.84 H (0.01-0.20) K/uL Glucose 169 H (70-99(Fasting)) mg/dl POC Glucose (70-99) mg/dl Lactate (0.4-2.0) mmol/L Total Bilirubin 1.1 H (0.2-1.0) mg/dl Alkaline Phosphatase 235 H (34-104) U/L Troponin I High Sens 31.3 H 17.5 H D (0-14) pg/ml B-Natriuretic Peptide 107 H (0-100) pg/ml Procalcitonin 0.58 H (0-0.5) ng/ml TSH (0.300-4.500) uIu/ml Entero/Rhino (PCR) (NotDetected) 05/14/25 05/14/25 05/15/25 Range/Units 21:24 23:20 00:11 WBC (4.8-10.8) K/ul MPV (9.4-12.4) fL Neut # (Auto) (1.40-6.50) K/uL Lymph # (Auto) (1.20-3.40) K/uL [place] # (Auto) (0.11-0.59) K/uL Immature Gran # (Auto) (0.01-0.20) K/uL Glucose (70-99(Fasting)) mg/dl POC Glucose 259 H (70-99) mg/dl Lactate 2.3 H* (0.4-2.0) mmol/L Total Bilirubin (0.2-1.0) mg/dl Alkaline Phosphatase (34-104) U/L Troponin I High Sens (0-14) pg/ml B-Natriuretic Peptide (0-100) pg/ml Procalcitonin (0-0.5) ng/ml TSH (0.300-4.500) uIu/ml Entero/Rhino (PCR) DETECTED A (NotDetected) 05/15/25 05/15/25 Range/Units 00:34 04:18 WBC 25.93 H (4.8-10.8) K/ul MPV 9.2 L (9.4-12.4) fL Neut # (Auto) 23.36 H (1.40-6.50) K/uL Lymph # (Auto) 0.93 L (1.20-3.40) K/uL [place] # (Auto) (0.11-0.59) K/uL Immature Gran # (Auto) 0.94 H (0.01-0.20) K/uL Glucose 308 H* (70-99(Fasting)) mg/dl POC Glucose (70-99) mg/dl Lactate 2.1 H* (0.4-2.0) mmol/L Total Bilirubin (0.2-1.0) mg/dl Alkaline Phosphatase (34-104) U/L Troponin I High Sens (0-14) pg/ml B-Natriuretic Peptide (0-100) pg/ml Procalcitonin (0-0.5) ng/ml TSH 0.282 L (0.300-4.500) uIu/ml Entero/Rhino (PCR) (NotDetected)
[2025-05-15] MEDS: AZITHROMYCIN 500 MG/255 ML BAG IV SCH (12:55)
[2025-05-15] MEDS: PERFLUTREN LIPID MICROSPHERE (DEFINITY) IV ONE (12:59)
[2025-05-15] MEDS: ADVANCED PROBIOTIC 625 MG CAPSULE PO SCH (18:12)
[2025-05-15] MEDS: FORMOTEROL 20 MCG/2 ML VIAL NEB SCH (19:54)
[2025-05-15] MEDS: BUDESONIDE 0.25 MG/2 ML VIAL (PULMICORT) NEB SCH (19:58)
[2025-05-15] MEDS: cefTRIAXone SODIUM 2,000 MG/50 ML BAG IV SCH (22:30)
--- NOTE | 2025-05-16 05:33 | Electrocardiogram Report ---
Test Reason : Blood Pressure : */* mmHG Vent. Rate : 99 BPM Atrial Rate : 99 BPM P-R Int : 140 ms QRS Dur : 78 ms QT Int : 338 ms P-R-T Axes : 49 9 53 degrees QTcB Int : 433 ms Normal sinus rhythm Possible Septal infarct , age undetermined Abnormal ECG When compared with ECG of 19-Dec-2023 11:55, Septal infarct is now Present Confirmed by Richie Ordoñez ([id number]) on 05/16/2025 5:33:19 AM Referred By: REFERRED SELF Confirmed By: Richie Ordoñez
[2025-05-16 07:45] LABS: Hematocrit (blood only) 41.4 % (37.0-47.0); Hemoglobin 13.5 g/dl (12.0-16.0); Mean Corpuscular Hemoglobin 28.2 pg (25.0-34.0); Mean Corpuscular Volume 86.4 fL (80.0-100.0); Platelet Count 339 K/uL (130-400); RDW Standard Deviation 45.6 fL (36.4-46.3); Red Blood Count 4.79 M/uL (4.20-5.40); White Blood Count 27.22 K/ul (4.8-10.8)
--- NOTE | 2025-05-16 07:58 | Pulmonology Progress Note ---
Date of Service May 16, 2025 Assessment & Plan (1) Asthma exacerbation: (2) Acute hypoxic respiratory failure: (3) Mediastinal adenopathy: (4) Multifocal pneumonia: (5) Pleural effusion: Plan CT chest 05/14/2025 personally reviewed: Motion degraded study Tree-in-bud opacities appreciated in the right upper lobe Consolidative changes appreciated in the left lower lobe with left-sided pleural effusion Dependent atelectasis of the right lower lobe Bilateral hilar lymphadenopathy (unchanged compared to 11/09) 2D echo 05/15/2025: EF 60-65%, grade 1 diastolic dysfunction, RV normal in size and function --Acute hypoxic respiratory failure Secondary to multilobar pneumonia Respiratory BioFire positive for entero-/rhinovirus on 05/14/2025, negative for everything else BNP 107 Nasal MRSA negative, procalcitonin 0.58 --Hilar lymphadenopathy Minimally enlarged when compared to CAT scan of the chest 11/2020 --History of asthma On Symbicort 160 at home Consider addition of Spiriva to the regimen on discharge Absolute eosinophil count 210 on 12/19/2023 --Obesity with probable VIKTORIA Recommend outpatient polysomnography Plan: Continue with antibiotics for at least 5-7 days Would recommend atypical coverage with azithromycin for total of 5 days Continue with nebulized bronchodilators while in the hospital Incentive spirometry [id number] Follow-up sputum culture Left-sided pleural effusion too small for any intervention Recommend repeating a CAT scan of the chest in 6-8 weeks Recommend outpatient polysomnography Please note the above document was generated using voice recognition software. It may contain grammatical, syntax or spelling errors.Any formal questions or concerns about the content, text or information contained within the body of this dictation should be directly addressed to the provider for clarification. Admission and Anticipated Discharge Date Admission Date: May 14, 2025 Subjective Patient seen and examined at bedside. No acute distress, no adverse events overnight She was saturating 94-95% on 3 L nasal cannula, on taking deep breaths it went up to 97%, I went down on oxygen to 2 L She does state that she is feeling better compared to yesterday Coughing up clear phlegm. She was able to collect the phlegm and send it to the lab Denies any chest pain No dysuria, no diarrhea Fair appetite No nausea or vomiting Review of Systems 2 Review of Systems: All systems reviewed & are unremarkable except as noted in Subjective Physical Exam 2 Physical Exam: Constitutional: No acute distress HEENT: EOMI, PERRLA Respiratory system: Decreased air entry bilaterally, no wheeze, no rhonchi, positive crackles bilateral lower lobes CVS: S1-S2 positive, no murmurs or gallops Abdomen: Soft, nontender, nondistended, positive bowel sounds x4, obese Extremities: +2 pulses bilaterally radialis/ dorsalis pedis, no cyanosis, m inimal pitting edema bilateral lower extremity Neuro: Awake alert oriented x3 Psych: Normal mood and affect G/U: No Parikh Skin: no rashes, warm and dry Lymphatic: no cervical or axillary lymphadenopathy Results & Data Results & Data Vital Signs (Past 12 Hours) Vital Signs Temp Pulse Pulse Pulse Resp BP BP 05/16/25 07:43 36.6 C 92 H 18 133/78 05/16/25 07:38 82 05/16/25 07:06 91 H 16 05/16/25 04:26 36.6 C 75 18 136/82 05/16/25 00:08 74 18 05/15/25 23:31 05/15/25 22:41 36.4 C L 73 16 124/73 05/15/25 21:30 05/15/25 20:02 36.6 C 78 18 143/79 H 05/15/25 20:01 91 H Pulse Ox O2 Del Method O2 Del Method O2 Flow Rate 05/16/25 07:43 91 Nasal Cannula 3 05/16/25 07:38 05/16/25 07:06 94 Nasal Cannula 3 05/16/25 04:26 94 Nasal Cannula 3 05/16/25 00:08 92 Nasal Cannula 3 05/15/25 23:31 Nasal Cannula 05/15/25 22:41 95 Nasal Cannula 3 05/15/25 21:30 Nasal Cannula 3 05/15/25 20:02 91 Nasal Cannula 3 05/15/25 20:01 94 Nasal Cannula 3 Laboratory Results 05/16/25 07:20 PG Care Time/CCT Total # of Minutes Spent Total Time Spent with Patient: Total time spent is greater than 50% in coordination of care (as documented) at patient's floor/unit and/or counseling patient: Coding Level of Care Code 70039 SUB INP/OBS CARE 2/35MIN Diagnoses Asthma exacerbation J45.901 Acute hypoxic respiratory failure J96.01 Mediastinal adenopathy R59.0 Multifocal pneumonia J18.8 Pleural effusion J90
[2025-05-16 08:08] LABS: Anion Gap 8.0 (3-11); Blood Urea Nitrogen 22.0 mg/dl (6-23); Calcium 9.3 mg/dl (8.6-10.3); Carbon Dioxide 32.0 mmol/L (21-32); Chloride 100.0 mmol/L (98-107); Creatinine Clr Calc Pharmacy 88.4 ml/min; Glucose 121.0 mg/dl (70-99(Fasting)); Potassium 3.7 mmol/L (3.5-5.1); Sodium 140.0 mmol/L (136-145)
--- NOTE | 2025-05-16 13:59 | Hospitalist Progress Note ---
Date of Service May 16, 2025 Assessment & Plan (1) Acute hypoxic respiratory failure: (2) Asthma exacerbation: (3) Hypertension: (4) Hyperlipidemia: (5) GERD (gastroesophageal reflux disease): (6) Depression: Plan 65 year old female with PMH significant for dyslipidemia, asthma, hypertension, GERD, IBS, diverticulosis, depression, and morbid obesity who presented to the ED on 05/14/2025 with SOB and viral symptoms for 6 dyas and is admitted for acute hypoxic respiratory failure Acute hypoxic respiratory failure Sepsis Pneumonia Patient presenting with 6 days of viral symptoms and worsening SOB Hypoxic at urgent care on day of admission to 73% on room air CXR reveals mild pulmonary vascular congestion CTA chest noted partial consolidation in both lower lobes( L>R), small left pleural effusion, small areas of infiltrate in upper lobes b/l. No PE Continue ceftriaxone and azithromycin Pulm eval and recs noted Continue nebs Sputum Cx in lab IS/Flutter Wean oxygen as tolerated. Will get 2 step prior to dc On admission, lab noted Leukocytosis 29K and tachycardia Outpatient lab review showed patient has chronic leukocytosis for which she had followed up with Hematology in the past. However, increased leukocytosis on this admission is likely due to infection Elevated troponin Initial 31 with repeat 17.5 Likely secondary to acute illness EKG without signs of ischemia TTE 05/15/25 - mild conc LVH, EF 60-65%, Grade 1 DD, no significant valvular disease Diabetes Glucose 169 on admission A1C 7.0 in March 2025 per EPIC review. Based on that A1c and blood glucose trend, patient has diabetes mellitus BSG ACHS and SSI while inpatient Education provided Hypertension Continue amlodipine and furosemide Dyslipidemia Continue atorvastatin GERD Continue PPI and famotidine Depression Continue sertraline DVT Prophylaxis: SQ lovenox Code Status: FULL CODE Needs sleep study outpatient I spent a total of 50 minutes coordinating, documenting and providing care for this patient excluding time spent in performance of separately billed services Admission and Anticipated Discharge Date Admission Date: May 14, 2025 Subjective Patient seen and examined Reports feeling better. Cough and SOB improved Still on nasal cannula No new complaints Physical Exam Constitutional: + well hydrated; no acute distress Eyes: PERRL, conjunctivae normal, anicteric sclerae ENMT: external ear and nose normal, oropharynx normal Respiratory: On nasal cannula, not in distress, diminished breath sounds Cardiovascular: Rate/Rhythm: regular rate and regular rhythm Gastrointestinal (Abdomen): normal bowel sounds, soft, nontender, no hepatosplenomegaly Neurologic: PERRL, EOMI, accommodation nl, no face palsy, no dysarthria Psychiatric: A+Ox3, euthymic affect Results & Data Results & Data Vital Signs (Past 12 Hours) Vital Signs Temp Pulse Pulse Resp BP BP Pulse Ox 05/16/25 13:46 64 15 94 05/16/25 11:32 36.8 C 78 18 136/83 92 05/16/25 07:43 36.6 C 92 H 18 133/78 91 05/16/25 07:38 82 05/16/25 07:06 91 H 16 94 05/16/25 04:26 36.6 C 75 18 136/82 94 O2 Del Method O2 Flow Rate 05/16/25 13:46 Nasal Cannula 2 05/16/25 11:32 Nasal Cannula 2 05/16/25 07:43 Nasal Cannula 3 05/16/25 07:38 05/16/25 07:06 Nasal Cannula 3 05/16/25 04:26 Nasal Cannula 3 Laboratory Results Abnormal lab results 05/15/25 05/15/25 05/16/25 Range/Units 17:09 20:53 07:20 WBC 27.22 H (4.8-10.8) K/ul MPV 9.1 L (9.4-12.4) fL BUN/Creatinine Ratio 28.2 H (10-20) Glucose 121 H (70-99(Fasting)) mg/dl POC Glucose 192 H 166 H (70-99) mg/dl 05/16/25 05/16/25 Range/Units 08:15 12:05 WBC (4.8-10.8) K/ul MPV (9.4-12.4) fL BUN/Creatinine Ratio (10-20) Glucose (70-99(Fasting)) mg/dl POC Glucose 114 H 106 H (70-99) mg/dl
--- NOTE | 2025-05-17 08:16 | Pulmonology Progress Note ---
Date of Service May 17, 2025 Assessment & Plan (1) Asthma exacerbation: (2) Acute hypoxic respiratory failure: (3) Mediastinal adenopathy: (4) Multifocal pneumonia: (5) Pleural effusion: Plan CT chest 05/14/2025 personally reviewed: Motion degraded study Tree-in-bud opacities appreciated in the right upper lobe Consolidative changes appreciated in the left lower lobe with left-sided pleural effusion Dependent atelectasis of the right lower lobe Bilateral hilar lymphadenopathy (unchanged compared to 11/09) 2D echo 05/15/2025: EF 60-65%, grade 1 diastolic dysfunction, RV normal in size and function --Acute hypoxic respiratory failure Secondary to multilobar pneumonia Respiratory BioFire positive for entero-/rhinovirus on 05/14/2025, negative for everything else BNP 107 Nasal MRSA negative, procalcitonin 0.58 --Hilar lymphadenopathy Minimally enlarged when compared to CAT scan of the chest 11/2020 --History of asthma On Symbicort 160 at home Consider addition of Spiriva to the regimen on discharge Absolute eosinophil count 210 on 12/19/2023 --Obesity with probable VIKTORIA Recommend outpatient polysomnography Plan: Continue with antibiotics for at least 5-7 days Would recommend atypical coverage with azithromycin for total of 5 days Continue with nebulized bronchodilators while in the hospital Incentive spirometry [id number] Consider addition of Spiriva to the regimen on discharge Sputum culture negative to date Recommend repeating a CAT scan of the chest in 6-8 weeks Recommend outpatient polysomnography No further recommendation from pulmonary perspective, will sign off Please call directly with any questions Please note the above document was generated using voice recognition software. It may contain grammatical, syntax or spelling errors.Any formal questions or concerns about the content, text or information contained within the body of this dictation should be directly addressed to the provider for clarification. Admission and Anticipated Discharge Date Admission Date: May 14, 2025 Subjective Patient seen and examined at bedside. No acute distress, no adverse events overnight She was saturating 92-93% on 2 L, went up to 97% while taking deep breaths, we went down to 1 L Denied any nausea or vomiting Appetite is fair States that the breathing is improving Has been using incentive spirometer as well as flutter valve Bringing up clear phlegm. No hemoptysis Review of Systems 2 Review of Systems: All systems reviewed & are unremarkable except as noted in Subjective Physical Exam 2 Physical Exam: Constitutional: No acute distress HEENT: EOMI, PERRLA Respiratory system: Decreased air entry bilaterally, no rhonchi, positive minimal expiratory wheeze bilaterally, positive crackles bilateral lower lobes CVS: S1-S2 positive, no murmurs or gallops Abdomen: Soft, nontender, nondistended, positive bowel sounds x4, obese Extremities: +2 pulses bilaterally radialis/ dorsalis pedis, no cyanosis, m inimal pitting edema bilateral lower extremity Neuro: Awake alert oriented x3 Psych: Normal mood and affect G/U: No Parikh Skin: no rashes, warm and dry Lymphatic: no cervical or axillary lymphadenopathy Results & Data Results & Data Vital Signs (Past 12 Hours) Vital Signs Temp Pulse Pulse Resp BP BP Pulse Ox 05/17/25 07:47 36.6 C 88 18 134/84 95 05/17/25 07:30 88 20 92 05/17/25 07:22 73 05/17/25 03:59 79 22 94 05/17/25 03:37 36.9 C 86 18 146/82 H 90 05/16/25 23:31 36.8 C 83 18 123/67 94 05/16/25 22:00 88 05/16/25 21:36 O2 Del Method O2 Flow Rate 05/17/25 07:47 Nasal Cannula 2 05/17/25 07:30 Nasal Cannula 2 05/17/25 07:22 05/17/25 03:59 Nasal Cannula 3 05/17/25 03:37 Nasal Cannula 2 05/16/25 23:31 Nasal Cannula 2 05/16/25 22:00 05/16/25 21:36 Nasal Cannula 2 Laboratory Results 05/16/25 07:20 05/16/25 07:20 PG Care Time/CCT Total # of Minutes Spent Total Time Spent with Patient: Total time spent is greater than 50% in coordination of care (as documented) at patient's floor/unit and/or counseling patient: Coding Level of Care Code 46579 SUB INP/OBS CARE 2/35MIN Diagnoses Asthma exacerbation J45.901 Acute hypoxic respiratory failure J96.01 Mediastinal adenopathy R59.0 Multifocal pneumonia J18.8 Pleural effusion J90
[2025-05-17 10:28] LABS: Hematocrit (blood only) 38.0 % (37.0-47.0); Hemoglobin 12.3 g/dl (12.0-16.0); Mean Corpuscular Hemoglobin 27.9 pg (25.0-34.0); Mean Corpuscular Volume 86.2 fL (80.0-100.0); Platelet Count 296 K/uL (130-400); RDW Standard Deviation 45.4 fL (36.4-46.3); Red Blood Count 4.41 M/uL (4.20-5.40); White Blood Count 16.69 K/ul (4.8-10.8)
[2025-05-17 10:43] LABS: Anion Gap 6.0 (3-11); Blood Urea Nitrogen 20.0 mg/dl (6-23); Calcium 8.6 mg/dl (8.6-10.3); Carbon Dioxide 31.0 mmol/L (21-32); Chloride 100.0 mmol/L (98-107); Creatinine Clr Calc Pharmacy 93.3 ml/min; Glucose 187.0 mg/dl (70-99(Fasting)); Potassium 3.9 mmol/L (3.5-5.1); Sodium 137.0 mmol/L (136-145)
--- NOTE | 2025-05-17 10:48 | Hospitalist Progress Note ---
Date of Service May 17, 2025 Assessment & Plan (1) Acute hypoxic respiratory failure: (2) Asthma exacerbation: (3) Hypertension: (4) Hyperlipidemia: (5) GERD (gastroesophageal reflux disease): (6) Depression: Plan 65 year old female with PMH significant for dyslipidemia, asthma, hypertension, GERD, IBS, diverticulosis, depression, and morbid obesity who presented to the ED on 05/14/2025 with SOB and viral symptoms for 6 days Admitted for acute hypoxic respiratory failure Acute hypoxic respiratory failure Sepsis Pneumonia Patient presenting with 6 days of viral symptoms and worsening SOB Hypoxic at urgent care on day of admission to 73% on room air CXR reveals mild pulmonary vascular congestion CTA chest noted partial consolidation in both lower lobes( L>R), small left pleural effusion, small areas of infiltrate in upper lobes b/l. No PE Continue ceftriaxone and azithromycin Pulm eval and recs noted Continue nebs Sputum Cx in lab IS/Flutter Wean oxygen as tolerated. Will get 2 step prior to dc On admission, lab noted Leukocytosis 29K and tachycardia Outpatient lab review showed patient has chronic leukocytosis for which she had followed up with Hematology in the past. However, increased leukocytosis on this admission is likely due to infection Leukocytosis improved to 16K today Elevated troponin Initial 31 with repeat 17.5 Likely secondary to acute illness EKG without signs of ischemia TTE 05/15/25 - mild conc LVH, EF 60-65%, Grade 1 DD, no significant valvular disease Diabetes Glucose 169 on admission A1C 7.0 in March 2025 per EPIC review. Based on that A1c and blood glucose trend, patient has diabetes mellitus BSG ACHS and SSI while inpatient Provided more education Hypertension Continue amlodipine and furosemide Dyslipidemia Continue atorvastatin GERD Continue PPI and famotidine Depression Continue sertraline DVT Prophylaxis: SQ lovenox Code Status: FULL CODE Needs sleep study outpatient I spent a total of 50 minutes coordinating, documenting and providing care for this patient excluding time spent in performance of separately billed services Admission and Anticipated Discharge Date Admission Date: May 14, 2025 Subjective Patient seen and examined Reports feeling better today Cough and SOB much improved Physical Exam Constitutional: + well hydrated; no acute distress Eyes: PERRL, conjunctivae normal, anicteric sclerae ENMT: external ear and nose normal, oropharynx normal Respiratory: On nasal cannula, not in distress, diminished breath sounds Cardiovascular: Rate/Rhythm: regular rate and regular rhythm Gastrointestinal (Abdomen): normal bowel sounds, soft, nontender, no hepatosplenomegaly Neurologic: PERRL, EOMI, accommodation nl, no face palsy, no dysarthria Psychiatric: A+Ox3, euthymic affect Results & Data Results & Data Vital Signs (Past 12 Hours) Vital Signs Temp Pulse Pulse Resp BP BP Pulse Ox 05/17/25 07:47 36.6 C 88 18 134/84 95 05/17/25 07:30 88 20 92 05/17/25 07:22 73 05/17/25 03:59 79 22 94 05/17/25 03:37 36.9 C 86 18 146/82 H 90 05/16/25 23:31 36.8 C 83 18 123/67 94 O2 Del Method O2 Flow Rate 05/17/25 07:47 Nasal Cannula 2 05/17/25 07:30 Nasal Cannula 2 05/17/25 07:22 05/17/25 03:59 Nasal Cannula 3 05/17/25 03:37 Nasal Cannula 2 05/16/25 23:31 Nasal Cannula 2 Laboratory Results Abnormal lab results 05/16/25 05/17/25 Range/Units 20:53 09:48 WBC 16.69 H (4.8-10.8) K/ul MPV 9.3 L (9.4-12.4) fL BUN/Creatinine Ratio 27.0 H (10-20) Glucose 187 H (70-99(Fasting)) mg/dl POC Glucose 118 H (70-99) mg/dl
[2025-05-18 08:14] VITALS: TEMP 98.4
[2025-05-18 08:33] LABS: Hematocrit (blood only) 41.8 % (37.0-47.0); Hemoglobin 13.0 g/dl (12.0-16.0); Mean Corpuscular Hemoglobin 27.2 pg (25.0-34.0); Mean Corpuscular Volume 87.4 fL (80.0-100.0); Platelet Count 293 K/uL (130-400); RDW Standard Deviation 46.0 fL (36.4-46.3); Red Blood Count 4.78 M/uL (4.20-5.40); White Blood Count 17.80 K/ul (4.8-10.8)
[2025-05-18 08:51] LABS: Anion Gap 7.0 (3-11); Blood Urea Nitrogen 14.0 mg/dl (6-23); Calcium 9.1 mg/dl (8.6-10.3); Carbon Dioxide 31.0 mmol/L (21-32); Chloride 101.0 mmol/L (98-107); Creatinine Clr Calc Pharmacy 96.4 ml/min; Glucose 100.0 mg/dl (70-99(Fasting)); Potassium 4.2 mmol/L (3.5-5.1); Sodium 139.0 mmol/L (136-145)
--- NOTE | 2025-05-18 09:14 | Pulmonology Progress Note ---
Date of Service May 18, 2025 Assessment & Plan (1) Asthma exacerbation: (2) Acute hypoxic respiratory failure: (3) Mediastinal adenopathy: (4) Multifocal pneumonia: (5) Pleural effusion: Plan CT chest 05/14/2025 personally reviewed: Motion degraded study Tree-in-bud opacities appreciated in the right upper lobe Consolidative changes appreciated in the left lower lobe with left-sided pleural effusion Dependent atelectasis of the right lower lobe Bilateral hilar lymphadenopathy (unchanged compared to 11/09) 2D echo 05/15/2025: EF 60-65%, grade 1 diastolic dysfunction, RV normal in size and function --Acute hypoxic respiratory failure Secondary to multilobar pneumonia Respiratory BioFire positive for entero-/rhinovirus on 05/14/2025, negative for everything else BNP 107 Nasal MRSA negative, procalcitonin 0.58 --Hilar lymphadenopathy Minimally enlarged when compared to CAT scan of the chest 11/2020 --History of asthma On Symbicort 160 at home Consider addition of Spiriva to the regimen on discharge Absolute eosinophil count 210 on 12/19/2023 --Obesity with probable VIKTORIA Recommend outpatient polysomnography Plan: Continue with antibiotics for at least 5-7 days Complete the course of azithromycin for total of 5 days Continue with nebulized bronchodilators while in the hospital Incentive spirometry [id number] Consider addition of Spiriva to the regimen on discharge Sputum culture negative to date Recommend repeating a CAT scan of the chest in 6-8 weeks Recommend outpatient polysomnography No further recommendation from pulmonary perspective, will sign off Please call directly with any questions Please note the above document was generated using voice recognition software. It may contain grammatical, syntax or spelling errors.Any formal questions or concerns about the content, text or information contained within the body of this dictation should be directly addressed to the provider for clarification. Admission and Anticipated Discharge Date Admission Date: May 14, 2025 Subjective Patient seen and examined at bedside. No acute distress, no adverse events overnight Overall she says she is feeling better Still requiring minimal oxygen Denies any nausea vomiting Bringing up phlegm without any issues Review of Systems 2 Review of Systems: All systems reviewed & are unremarkable except as noted in Subjective Physical Exam 2 Physical Exam: Constitutional: No acute distress HEENT: EOMI, PERRLA Respiratory system: Decreased air entry bilaterally, no rhonchi, positive minimal expiratory wheeze bilaterally, positive crackles bilateral lower lobes CVS: S1-S2 positive, no murmurs or gallops Abdomen: Soft, nontender, nondistended, positive bowel sounds x4, obese Extremities: +2 pulses bilaterally radialis/ dorsalis pedis, no cyanosis, m inimal pitting edema bilateral lower extremity Neuro: Awake alert oriented x3 Psych: Normal mood and affect G/U: No Parikh Skin: no rashes, warm and dry Lymphatic: no cervical or axillary lymphadenopathy Results & Data Results & Data Vital Signs (Past 12 Hours) Vital Signs Temp Pulse Pulse Resp BP Pulse Ox O2 Del Method 05/18/25 08:14 36.9 C 76 24 134/82 92 Nasal Cannula 05/18/25 07:28 79 18 92 Nasal Cannula 05/18/25 04:00 36.8 C 84 20 149/83 H 91 Nasal Cannula 05/18/25 01:10 82 16 92 Nasal Cannula 05/17/25 22:46 37.0 C 88 18 149/77 H 92 Nasal Cannula 05/17/25 21:49 98 H O2 Flow Rate 05/18/25 08:14 2 05/18/25 07:28 3 05/18/25 04:00 2 05/18/25 01:10 2 05/17/25 22:46 2 05/17/25 21:49 Laboratory Results 05/18/25 08:05 05/18/25 08:05 PG Care Time/CCT Total # of Minutes Spent Total Time Spent with Patient: Total time spent is greater than 50% in coordination of care (as documented) at patient's floor/unit and/or counseling patient: Coding Level of Care Code 29219 SUB INP/OBS CARE 2/35MIN Diagnoses Asthma exacerbation J45.901 Acute hypoxic respiratory failure J96.01 Mediastinal adenopathy R59.0 Multifocal pneumonia J18.8 Pleural effusion J90
[2025-05-18 10:53] VITALS: BP 134/84; PULSE 91; RESP 24; O2SAT 92
--- NOTE | 2025-05-18 11:02 | Discharge Summary ---
Date of Service May 18, 2025 Admission HPI Per Admitting Provider 65 year old female with PMH significant for dyslipidemia, asthma, hypertension, GERD, IBS, diverticulosis, depression, and morbid obesity who presented to the ED on 05/14/2025 with SOB and viral symptoms x6 days. Patient reports she started feeling sick last Tuesday where she was experiencing fevers/chills, sore throat, runny nose, fatigue/malaise, and SOB. She notes her symptoms, especially SOB, worsened significantly on Tuesday and she developed a productive cough and nausea with one episode of vomiting. She has been compliant with her symbicort and tried her albuterol inhaler with no improvement in SOB. She sought evaluation via telemedicine yesterday and was prescribed azithromycin. Her son and daughter in law both had sore throats (strep negative) that improved on azithromycin. Her symptoms continued to worsen today, prompting her to seek evaluation at urgent care. At urgent care, she reports her oxygen level was 73% on room air and she was referred to the emergency department for further evaluation. Patient was seen in the ED while receiving a nebulizer and reports her SOB feels better since receiving nebs. Admission Exam Per Admitting Provider General/Psych: ill appearing, obese, sitting up in bed, flushed in the face, receiving neb Head: normocephalic, atraumatic Eyes: normal inspection, PERRL, conjunctivae pink ENT: external ear and nose normal, oropharynx normal Neck: normal visual inspection, trachea midline Respiratory: normal respiratory effort, lungs with bilateral rhonchi and expiratory wheezing, no accessory muscle use Cardiovascular: regular rate and rhythm, no murmur/rub/gallop, no JVD Extremities: no cyanosis or clubbing, normal peripheral pulses, non-pitting BLE edema Abdomen/GI: normal bowel sounds, soft, nontender Neurologic/MSK: A+Ox3, motor strength 5/5, moves all extremities Skin: no rashes, normal color, warm and dry Principal Diagnosis Acute respiratory failure with hypoxia Pneumonia Diabetes mellitus Discharge Exam Constitutional + well hydrated; no acute distress Eyes PERRL, conjunctivae normal, anicteric sclerae ENMT external ear and nose normal, oropharynx normal Respiratory On nasal cannula, decreased breath sounds, +crackles Cardiovascular Rate/Rhythm: regular rate and regular rhythm Gastrointestinal (Abdomen) normal bowel sounds, soft, nontender, no hepatosplenomegaly Musculoskeletal Trace pedal edema Neurologic PERRL, EOMI, accommodation nl, no face palsy, no dysarthria Psychiatric A+Ox3, euthymic affect Discharge Data Allergies Allergy/AdvReac Type Severity Reaction Status Date / Time pantoprazole Allergy Unknown RASH ON ARM Verified 03/07/23 06:33 Penicillins Allergy Unknown throat Verified 03/07/23 06:33 swelling Consultations 05/14/25 20:00 ED Decision to Admit Stat 05/14/25 22:52 Consult Pulmonology Routine Ordered Studies 05/14/25 21:17 CT angio chest PE protocol Stat Hospital Course (1) Acute hypoxic respiratory failure: (2) Asthma exacerbation: (3) Hypertension: (4) Hyperlipidemia: (5) GERD (gastroesophageal reflux disease): (6) Depression: Plan 65 year old female with PMH significant for dyslipidemia, asthma, hypertension, GERD, IBS, diverticulosis, depression, and morbid obesity who presented to the ED on 05/14/2025 with SOB and viral symptoms for 6 days Admitted for acute hypoxic respiratory failure Acute hypoxic respiratory failure Sepsis Pneumonia Patient presenting with 6 days of viral symptoms and worsening SOB Hypoxic at urgent care on day of admission to 73% on room air CXR reveals mild pulmonary vascular congestion CTA chest noted partial consolidation in both lower lobes( L>R), small left pleural effusion, small areas of infiltrate in upper lobes b/l. No PE Patient was treated with IV ceftriaxone and azithromycin while inpatient She was also evaluated by Pulmonology Patient's symptoms improved On admission, lab noted Leukocytosis 29K and tachycardia Outpatient lab review showed patient has chronic leukocytosis for which she had followed up with Hematology in the past. However, increased leukocytosis on this admission is likely due to infection Leukocytosis improved to 17K today Antibiotics changed to cefpodoxime and azithromycin on discharge to complete treatment 2 Step today showed patient needs 1L of nasal oxygen at rest and 2L with activity Patient discharged on portable oxygen PCP to reassess oxygen need at follow up PCP to repeat CT chest in Elevated troponin Initial 31 with repeat 17.5 Likely secondary to acute illness EKG without signs of ischemia TTE 05/15/25 - mild conc LVH, EF 60-65%, Grade 1 DD, no significant valvular disease Diabetes Glucose 169 on admission A1C 7.0 in March 2025 per EPIC review. Based on that A1c and blood glucose trend, patient has diabetes mellitus Provided diabetes education Patient reports she is aware of her A1c and working with her PCP on lifestyle modification and monitoring Hypertension Continue amlodipine and furosemide Dyslipidemia Continue atorvastatin GERD Continue PPI and famotidine Depression Continue sertraline PCP to arrange sleep study outpatient Total Time Total Time Spent Total Time Spent (In Minutes): 40 Total Time Includes: Examination of the Patient, Discharge Planning and Medication Reconciliation Discharge Plan Discharge Items Patient Disposition: Home - Self-Care Reason For Visit: RESP FAILURE Discharge Diagnosis: Acute respiratory failure with hypoxia Pneumonia Diabetes mellitus Condition on Discharge: Good Activity: Resume your previous activity Non-emergency contact: Primary Care Provider Call non-emergency contact if: you have any medication questions Follow-up/Referrals: Faina Alvarez PA-C [Primary Care Provider] - 05/21/25 1:00 pm (Date & Time 05/21/2025 1:00 PM Provider: Faina Alvarez PA-C [facility] ) Diet: Carb Consistent or DM2 Addtl Attending Provider Instructions: Mrs Estes You were hospitalized and managed for the above listed diagnoses You are being discharged on nasal oxygen at 1L at rest and 2L with activity. You are being discharged on Cefpodoxime and azithromycin for few more days to complete treatment. Please ensure follow up with your Primary Doctor. It was a pleasure taking care of you. Pending Studies at Discharge: No Stand-Alone Forms: My [facility], Smoking Cessation Medications and DC Order Prescriptions: New guaifenesin [Mucinex] 600 mg Tablet Extended Release 12hr 600 mg PO Q12 3 Days Qty: 6 0RF cefpodoxime 200 mg tablet 200 mg PO BID 3 Days Qty: 6 0RF Rx Instructions: must administer with a meal/food azithromycin 500 mg tablet 500 mg PO DAILY 2 Days Qty: 2 0RF Rx Instructions: start on day 2 of therapy Continued cetirizine [Zyrtec] 10 mg Tablet 10 mg PO QAM budesonide-formoterol [Symbicort] 160-4.5 mcg/actuation HFA aerosol inhaler 2 puff inhalation BID atorvastatin [Lipitor] 20 mg tablet 20 mg PO QAM Multivitamin Women 50 Plus 8 mg iron-400 mcg-300 mcg Tablet 1 tab PO QAM famotidine [Pepcid] 40 mg Tablet 40 mg PO HS omeprazole 40 mg Capsule,Delayed Release(Dr/Ec) 40 mg PO QAM albuterol sulfate 90 mcg/actuation HFA aerosol inhaler 2 inh inhalation Q6H PRN (Reason: ASTHMA) lactobacillus combination no.8 3 billion cell Capsule 3 cell PO QAM sertraline [Zoloft] 50 mg tablet 100 mg PO QAM epinephrine [EpiPen 2-Atif] 0.3 mg/0.3 mL auto-injector 0.3 mg IM DIRECTED PRN (Reason: anaphylaxis) Qty: 2 0RF amlodipine 5 mg tablet 5 mg PO DAILY docusate sodium 100 mg Capsule 100 mg PO BID furosemide 20 mg tablet 20 mg PO DAILY Discharge Orders: Discharge Order (Routine); Ordered 05/18/25 Ordered By: Renetta Dubose Admission Data Admit Date/Time: 05/14/25 20:47 Attending Provider: Renetta Dubose I. Admit Provider: Kevin Pineda Primary Care Provider: Faina Alvarez Other Providers: Kevin Pineda; Jose Rafael Rivas; Janes Cisneros; Leon Sandhu; Lily Apodaca; Jose Bro; Jamia Vaughn Other Interventions: Discharge Summary Assessment (RN) Last Done: 05/18/25 10:49
== END 2025-05-18 11:46 | disposition home or self-care (01) | DRG 871 ==
LOC: ED 18:11 → EDINP 20:47 → 2W 23:31